=== PATIENT | female | born 1955 | race Caucasian/White ===

== ENCOUNTER 2018-07-22 00:48 | Outpatient (CLI) | payer OTHER, SELFPAY ==
--- NOTE | 2018-07-22 08:30 | DI.MAMMO_ITS ---
SYMPTOM/DIAGNOSIS: SCREENING, Z12.31 MAMMOGRAMS: Mammograms were interpreted according to the usual protocol including computer analysis with CAD system, tomosynthesis and C view imaging. The breast tissue is of moderate radiodensity. There is no evidence of a mass. There are no suspicious calcifications and there has been no significant interval change when compared with prior images. SUMMARY: No evidence of malignancy, category 1. Yearly screening mammography is recommended. Breast density, category B. SA ASSESSMENT OF FINDINGS: Negative. Category 1. Patient will receive a letter notifying them of these results. BI-RADS category B. There are scattered areas of fibroglandular density.
== END 2018-07-22 01:08 ==
PROVIDERS: PCP Family Medicine; Visit Provider Obstetrics & Gynecology Gynecology
DX: Z12.31 Encounter for screening mammogram for malignant neoplasm of breast (principal)
CPT/HCPCS: 77063; 77067

== ENCOUNTER 2018-08-10 09:48 | Outpatient (CLI) | payer OTHER, SELFPAY ==
[2018-08-10 11:11] LABS: Hemoglobin A1C 5.3 % (4.5-6.2)
[2018-08-10 11:19] LABS: ALT 23 U/L (12-78); AST 17 U/L (15-37); Albumin 3.7 g/dL (3.4-5.0); Alkaline Phosphatase 66 U/L (46-116); Anion Gap 9.1 mmol/L (3-11); BUN 9 mg/dL (7-18); Bilirubin, Total 0.4 mg/dL (0.2-1.0); CO2 27.9 mmol/L (21.0-32.0); CREATININE 0.62 mg/dL (0.55-1.02); Calcium 9.4 mg/dL (8.5-10.1); Chloride 104 mmol/L (98-107); Cholesterol 204 mg/dL (50-200); Glucose 89 mg/dL (70-100); HDL Cholesterol 59 mg/dL (40-60); LDL CHOLESTEROL 122 mg/dL (<100); Potassium 4.5 mmol/L (3.5-5.1); Sodium 141 mmol/L (136-145); Triglyceride 94 mg/dL (30-150)
[2018-08-12 06:28] LABS: Vitamin D 25 Total 13.9 ng/ml (30-100)
== END 2018-08-10 10:08 ==
PROVIDERS: PCP Family Medicine; Visit Provider Obstetrics & Gynecology Gynecology
DX: M85.80 Other specified disorders of bone density and structure, unspecified site (principal); Z13.220 Encounter for screening for lipoid disorders; Z13.1 Encounter for screening for diabetes mellitus
CPT/HCPCS: 36415; 80053; 80061; 82306; 83721; 83036

== ENCOUNTER 2019-02-21 09:15 | Emergency (ER) | payer OTHER, BC, SELFPAY ==
[2019-02-21] VITALS (23 sets, daily range): BP systolic 122–147; BP diastolic 65–76; PULSE 53–67; RESP 13–23; TEMP 36.8; O2SAT 94–100
--- NOTE | 2019-02-21 09:33 | NUR.NOTE ---
Nursing Note: Pt has a ring on the ring finger of the left hand. hand is swollen and patient is adamant that the ring is not to be cut, pt states, there is no way that you are going to get it over the knuckle and you are not going to cut it off. Ice applied to fingers. will ice hand, then attempt to lubricate ring to get it off.
--- NOTE | 2019-02-21 09:50 | NUR.NOTE ---
Nursing Note: pt requesting that a lyme panel be added on to her labs. states that she has picked several ticks off of her this Summer and that she started prophylactic doxycycline, but was unable to finish the prescription because she traveled to [place].
[2019-02-21] MEDS: Normal Saline 1,000 ML 1000 ML IV (09:55)
[2019-02-21] MEDS: diphenhydrAMINE 50 MG/ML VIAL 25 MG IVP (10:00)
[2019-02-21] MEDS: methylPREDNISolone SUCC 125 MG VIAL IVP (10:00)
[2019-02-21] MEDS: FAMOTIDINE 20 MG/50 ML BAG 200 MG IVPB (10:00)
--- NOTE | 2019-02-21 10:01 | ED.GENADUL_ITS ---
Discharge Plan Disposition Patient Disposition: HOME Condition: Stable Discharge Details Chief Complaint: Allergic Clinical Impression: Bee sting Primary Care Provider: Jennifer Smith ED Provider: Matilda Salcedo Home Meds and New Rx's Prescriptions: New epinephrine [EpiPen] 0.3 mg/0.3 mL auto-injector 0.3 mg IM ONCE Qty: 2 RF: 3 prednisone 20 mg tablet 60 mg PO DAILY Qty: 12 RF: 0 Discharge Instructions Instructions: Prednisone (By mouth), Epinephrine (Injection), Insect Bite or Sting (ED), General Allergic Reaction (ED) Additional Instructions: Please return immediately to the emergency department if you develop any new or worsening symptoms or if you become otherwise concerned. It is extremely important that you call as soon as possible to make an appointment to be seen in follow-up for this visit by your primary care doctor. Referrals: Jennifer Smith MD, [place] [Primary Care Provider] - Discharge Data Discharge Date/Time-TO BE ENTERED AT DEPARTURE: 02/21/19 12:56 Medical Decision Making Bhumi Agee is a 63 y/o woman without reported history of major medical problems who presented to the emergency department with worsening edema/erythema of the left hand/forearm, and also feeling woozy/lightheaded after taking Benadryl this morning for symptoms related to bee sting sustained yesterday. On exam patient is very well and nontoxic appearing. Airway is intact without signs of impending airway compromise. Lungs are clear, normal breathing. Several sites with erythema, edema where patient reports that she was stung. No apparent retained stingers at sting sites. Exam/history is not consistent with DVT, cellulitis, ACS, PE, sepsis, arrhythmia as cause of lightheadedness. Concern for localized reaction to bee stings. Doubt impending anaphylaxis, however given patient sensation of wooziness/lightheadedness in setting of recent stings plan for observation, IV fluid hydration, IV Benadryl, IV Pepcid, IV Solu- Medrol, EKG, telemetry. Tetanus up-to-date upon record review. Patient reporting possible exposure to tickborne disease and recent generalized arthralgias, requesting tick panel. Will send. Concern for potential worsening of edema in left hand with ring in place, possible complications including tissue necrosis. Patient verbalized understanding of risks, refused cutting of ring at this time. Edema is significant enough to preclude other options for ring removal at this time. Plan for elevation of hand, ice. EKG, screening labs okay. Patient observed on telemetry without further issues on the emergency department. Patient reports that she feels somewhat tired, but otherwise well and states that she is ready for discharge. On exam patient remains very well and nontoxic appearing. There has been improvement in erythema and edema of patient's left hand and arm, with significant improvement of edema of the digits. Ring still not able to be removed over PIP joint, however ring is loose in its current place. Patient continues to refuse cutting of the ring. I had a lengthy discussion with the patient regarding risks of leaving ring in place if finger were to swell further, return to emergency department, precautions, home care, importance of outpatient follow-up with her PCP. Plan for p.o. prednisone, Rx for EpiPen. Patient verbalized understanding of the plan was amenable. All questions were answered. Patient was discharged home with clear plan for outpatient follow-up. Medical Records Medical records reviewed: Yes I reviewed the patient's medical records. Lab Data Lab results reviewed: Yes I reviewed the patient's lab results. Laboratory Tests Range/Units 02/21/19 02/21/19 02/21/19 09:55 09:55 09:55 WBC (4.4-10.8) k/cumm 4.98 RBC (4.00-5.20) m/cumm 4.31 Hgb (12.0-15.5) g/dL 13.8 Hct (36.0-46.0) % 41.0 MCV (80-95) fL 95.1 H MCH (27.0-33.0) pg 32.0 MCHC (32.0-36.0) g/dL 33.7 RDW (11.7-14.6) % 12.6 Plt Count (130-400) x1000/uL 314 MPV (8.0-11.0) fL 9.6 Immature Gran % 0.2 Neutrophils % 70.1 Lymphocytes % 19.1 Monocytes % 8.8 Eosinophils % 1.8 Basophils % 0.0 Absolute Neutrophils (1.2-6.7) k/cumm 3.49 Absolute Lymphocytes (1.2-3.4) k/cumm 0.95 L Absolute Monocytes (0.11-0.7) k/cumm 0.44 Absolute Eosinophils (0.0-0.7) k/cumm 0.09 Absolute Basophils (0.0-0.2) k/cumm 0.00 Sodium (136-145) mmol/L 142 Potassium (3.5-5.1) mmol/L 4.4 Chloride (98-107) mmol/L 106 Carbon Dioxide (21.0-32.0) mmol/L 27.6 Anion Gap (3-11) mmol/L 8.4 BUN (7-18) mg/dL 12 Creatinine (0.55-1.02) mg/dL 0.79 Estimated GFR/1.73 m2 (mL/min/1.73m2) >= 60.00 Glucose (70-100) mg/dL 98 Calcium (8.5-10.1) mg/dL 9.0 Total Bilirubin (0.2-1.0) mg/dL 0.4 AST (15-37) U/L 20 ALT (12-78) U/L 23 Alkaline Phosphatase (46-116) U/L 69 Total Protein (6.4-8.2) g/dL 7.2 Albumin (3.4-5.0) g/dL 3.6 A.phagocytophil DNA PCR (Negative) Negative B. divergens/MO-1 PCR (Negative) Negative Babesia duncani (PCR) (Negative) Negative Babesia microti DNA PCR (Negative) Negative Borrelia (PCR) (Negative) Negative Lyme Disease Antibody Negative E.chaffeensis DNA (PCR) (Negative) Negative E.ewingii/canis DNA PCR (Negative) Negative E. muris-like DNA (PCR) (Negative) Negative ECG Data Attestation: I personally reviewed and interpreted this ECG (s) as follows: Interpretation: EKG shows sinus rhythm at 62, normal axis, no ST elevation, nondiagnostic EKG HPI General Mode of arrival: ambulatory . Date/Time Provider Initiated Documentation: 02/21/19 09:25 . Limitations to Documentation: no limitations . Information obtained by: patient, RN notes reviewed and old records reviewed . HPI Narrative: Bhumi Agee is a 63 y/o woman without reported history of major medical problems presenting to the emergency department with allergic reaction. Patient reports that yesterday she was tending to her honeybees, when she was stung several times. Patient reports that in the past she has had significant localized swelling with bee stings. She was done left hand, left ankle, left thigh, and left abdomen. Patient reports that she did have significant swelling and redness of the left hand yesterday, but this was consistent with similar stings in the past. Patient reports that she woke up this morning, and noticed that redness and swelling of the left hand had progressed to left elbow. Patient reports that she took 2 doses of children's Benadryl, but is unsure of the number of milligrams. Patient reports that after taking Benadryl, she began to feel woozy, somewhat lightheaded. Patient reports that she currently feels somewhat woozy, which in addition to the increase in swelling and redness of her left arm is what prompted her to come to the emergency department. She reports mild pain at the site of the sting but no pain otherwise, no fevers, no shortness of breath, no cough, no vomiting, no diarrhea, no swelling/tightening of the mouth/tongue/throat, no rash other than at sting sites. Has been eating and drinking as usual. No recent illness. Patient reports that she has known allergy to Bactrim, which causes hives. No history of anaphylaxis. Related Data Home Medications Medication Instructions Recorded Confirmed epinephrine [EpiPen] 0.3 mg IM ONCE #2 each 02/21/19 prednisone 60 mg PO DAILY #12 tab 02/21/19 Previous Rx's Medication Instructions Recorded epinephrine [EpiPen] 0.3 mg IM ONCE #2 each 02/21/19 prednisone 60 mg PO DAILY #12 tab 02/21/19 Allergies Allergy/AdvReac Type Severity Reaction Status Date / Time sulfamethoxazole Allergy Hives Unverified 12/21/18 15:16 [From Bactrim] trimethoprim [From Bactrim] Allergy Hives Unverified 12/21/18 15:16 General Stated Complaint: Allergic ROJAS: 3 Review of Systems Review of Systems Constitutional: denies fevers Eyes: denies eye pain ENT: denies facial pain, dental pain, sore throat, swelling of the mouth, tightness of the throat Cardiovascular: denies chest pain, reports mild lightheadedness Respiratory: denies SOB, cough GI: denies abdominal pain, vomiting, diarrhea : denies flank pain MSK: denies back pain, neck pain, reports generalized arthralgias over the past few days (present prior to bee stings) Skin: Reports redness and pain at site of stings, denies other rash Neuro: denies headaches, numbness, weakness [facility] Medical History Plantar fasciitis of left foot Radius distal fracture Stress fracture, left foot, subsequent encounter for fracture with routine healing Vulvar pruritus (Acute) Surgical History back surgery (~2009) section Colonoscopy - MAC (09/04/17) FRACTURE REPAIR Fracture, Open Treatment skin biopsy (04/30/10) STRESS FX 2 METATARSALS OF LEFT FOOT Family History Mother No problems noted. Father Dementia Maternal Grandfather No problems noted. Paternal Grandfather Myocardial infarction Maternal Grandmother No problems noted. Paternal Grandmother No problems noted. Son No problems noted. Daughter No problems noted. 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@ [employer] Pets and animals: Yes Pets and animals: dog(s) Sexually active: No Do you think of yourself as: straight/heterosexual Current gender identity: female What is your relationship status?: How often do you talk on the phone with friends or family?: three or more times per week How often do you get together with friends or relatives?: once per week How often do you attend latter day or catholic services?: decline to answer Do you belong to any clubs or organized social groups?: no Panel score (0-1 are the most socially isolated patients): 2 What type of physical activity do you participate in: walking, bicycling and yoga Duration: 60-90 minutes/day Frequency: 5-6 times per week Annabelle/Roman Catholic: None Special annabelle needs: No Seatbelt use: always Helmet use: Yes Helmet use: always Drive intox or ride w/intox port cdl a driver: No Do you feel safe at home: Yes Do you feel safe in your relationship?: Yes Female Reproductive History Menstrual Menopause type: natural History History 2 Para 2 Hx # Term Pregnancies 2 Multiple births Hx # Pregnancies Ectopic pregnancies AB induced Hx Number of Living Children 2 AB spontaneous Exam Narrative Exam Narrative: Constitutional: well and [id number], pleasant, conversing normally HENT: head atraumatic/normocephalic/normal inspection, mucous membranes moist, no edema of the lips, tongue, or oropharynx noted, no intraoral lesion, no drooling, normal voice Eyes: conjunctiva normal, sclera normal, pupils 3mm b/l Neck: no stridor, normal ROM, trachea midline Chest: normal inspection Resp: normal work of breathing, LCTAB Cardio: normal rate, normal rhythm, 1/6 systolic murmur noted, previously unknown to patient GI: abdomen soft, non-tender, non-distended Back: normal inspection, no rash Skin: warm, dry, normal color, 1-2+ edema with erythema of the left hand to forearm just distal to the left elbow, approximately 10 cm erythema mild edema left abdomen, 3 cm erythema/edema left medial thigh, 2 cm mild erythema left ankle, no rash otherwise. All sites without fluctuance or drainage. Ring present left fourth digit, spins in place but with significant distal edema of the digit. Neuro: alert, not altered, grossly non-focal, normal tone Ext: no edema of the lower legs Psych: normal mood, normal affect, normal behavior Course Vital Signs Temperature 36.8 C 02/21/19 09:17 Pulse 67 02/21/19 09:17 Respiratory Rate 16 02/21/19 09:17 Blood Pressure 133/76 02/21/19 09:17 Pulse Oximetry 100 02/21/19 09:17 Temperature 36.8 C 02/21/19 09:17 Temperature Source Skin 02/21/19 09:17 Pulse 67 02/21/19 09:17 Respiratory Rate 16 02/21/19 09:17 Respiratory Effort Non-Labored 02/21/19 09:35 Blood Pressure 133/76 02/21/19 09:17 Blood Pressure Position Sitting 02/21/19 09:17 Pulse Oximetry 100 02/21/19 09:17 Oxygen Delivery Method Room Air 02/21/19 09:17 Oxygen Flow Rate 0 02/21/19 09:17 Pain Level 0 02/21/19 09:17 Comment 02/21/19 09:17
[2019-02-21 10:07] LABS: Abs Immature Grans 0.01 k/cumm (0.0-0.09); Absolute Eosinophil Count 0.09 k/cumm (0.0-0.7); Absolute Lymphocyte Count 0.95 k/cumm (1.2-3.4); Absolute Monocyte Count 0.44 k/cumm (0.11-0.7); Absolute Neutrophil Count 3.49 k/cumm (1.2-6.7); Eosinophils % 1.8; HGB 13.8 g/dL (12.0-15.5); Immature Grans % 0.2; Lymphocytes % 19.1; Mean Corp. HGB Concentration 33.7 g/dL (32.0-36.0); Mean Corpuscular Volume 95.1 fL (80-95); Mean Platelet Volume 9.6 fL (8.0-11.0); Monocytes % 8.8; Neutrophils % 70.1; Platelet Count 314 x1000/uL (130-400); RBC 4.31 m/cumm (4.00-5.20); RBC Distribution Width 12.6 % (11.7-14.6); White Blood Cell Count 4.98 k/cumm (4.4-10.8)
[2019-02-21 10:22] LABS: ALT 23 U/L (12-78); AST 20 U/L (15-37); Albumin 3.6 g/dL (3.4-5.0); Alkaline Phosphatase 69 U/L (46-116); Anion Gap 8.4 mmol/L (3-11); BUN 12 mg/dL (7-18); Bilirubin, Total 0.4 mg/dL (0.2-1.0); CO2 27.6 mmol/L (21.0-32.0); CREATININE 0.79 mg/dL (0.55-1.02); Chloride 106 mmol/L (98-107); Glucose 98 mg/dL (70-100); Potassium 4.4 mmol/L (3.5-5.1); Sodium 142 mmol/L (136-145); Total Protein 7.2 g/dL (6.4-8.2)
[2019-02-22 11:34] LABS: Lyme Ab w Rflx to Lyme Confirm Negative
[2019-02-22 22:40] LABS: Anaplasma phagocytophilum Negative (Negative); B. miyamotoi PCR Negative (Negative); Babesia divergens/MO-1 Negative (Negative); Babesia duncani Negative (Negative); Babesia microti Negative (Negative); Ehrlichia chaffeensis Negative (Negative); Ehrlichia ewingii/canis Negative (Negative); Ehrlichia muris eauclairensis Negative (Negative)
== END 2019-02-21 12:56 | disposition home or self-care (01) ==
PROVIDERS: Emergency Provider Student in an Organized Health Care Education/Training Program; PCP Family Medicine
DX: T63.441A Toxic effect of venom of bees, accidental (unintentional), initial encounter (principal); R60.0 Localized edema; L53.9 Erythematous condition, unspecified; R42 Dizziness and giddiness; R52 Pain, unspecified; W57.XXXA Bitten or stung by nonvenomous insect and other nonvenomous arthropods, initial encounter
CPT/HCPCS: 36415; 80053; 87798; 93005; 96361; 96374; 96375; 99285; 85025; 86618; 93010; J1200; J2930

== ENCOUNTER 2019-11-11 09:26 | Outpatient (REF) | payer BC, SELFPAY ==
[2019-11-11 09:40] LABS: Glucose 87 mg/dL (74-106)
[2019-11-11 10:11] LABS: Calculated LDL 128 mg/dL (<100); Cholesterol 210 mg/dL (<200); HDL Cholesterol 63 mg/dL (40-60); Triglyceride 99 mg/dL (<150); Vitamin B12 169 pg/mL (193-986)
[2019-11-14 06:30] LABS: Vitamin D 25 Total 13.3 ng/ml (30-100)
== END 2019-11-11 09:46 ==
LOC: LBN 09:26
PROVIDERS: Advanced Practice Midwife; PCP Family Medicine; Visit Provider Family Medicine
DX: Z00.00 Encounter for general adult medical examination without abnormal findings (principal); E55.9 Vitamin D deficiency, unspecified; R53.83 Other fatigue
CPT/HCPCS: 80061; 82306; 82947; 82607; 84443

== ENCOUNTER 2020-03-13 03:31 | Outpatient (CLI) | payer BC, SELFPAY ==
--- NOTE | 2020-03-13 08:00 | DI.MAMMO_ITS ---
EXAM: MAMMO SCREENING CLINICAL HISTORY: screening,z12.39 TECHNIQUE: Mammograms were interpreted according to the usual protocol including computer analysis w [employer] CAD system, tomosynthesis and C-view imaging. COMPARISON: 2011 through 2018 FINDINGS: The breasts are composed of scattered fibroglandular densities, Breast Density category B. No suspicious masses or suspicious microcalcifications are seen. No skin thickening or abnormal axillary lymph nodes are seen. There has been no significant change from prior exams. IMPRESSION: BI-RADS Category 1, Negative mammogram Yearly screening mammography is recommended. Breast Density - Category B, scattered fibroglandular densities. A negative radiographic report should not delay biopsy if a dominant or clinically suspicious mass is present. Up to ten percent of cancers are not identified on mammography. A negative report may reinforce clinical impression. Adenosis and dense breasts may obscure an underlying neoplasm. False positive reports average 6 to 10%. Patient will receive a letter notifying them of these results.
== END 2020-03-13 03:51 ==
PROVIDERS: PCP Family Medicine; Visit Provider Family Medicine
DX: Z12.31 Encounter for screening mammogram for malignant neoplasm of breast (principal); R92.2 Inconclusive mammogram
CPT/HCPCS: 77063; 77067

== ENCOUNTER 2020-05-11 09:13 | Outpatient (CLI) | payer BC, SELFPAY ==
[2020-05-11 10:18] LABS: Calculated LDL 132 mg/dL (<100); Cholesterol 219 mg/dL (<200); HDL Cholesterol 70 mg/dL (40-60); Triglyceride 86 mg/dL (<150)
[2020-05-11 10:27] LABS: Vitamin B12 > 2000 pg/mL (193-986)
[2020-05-11 10:37] LABS: Glucose 88 mg/dL (74-106)
[2020-05-14 06:13] LABS: Vitamin D 25 Total 64.7 ng/ml (30-100)
== END 2020-05-11 09:33 ==
PROVIDERS: Advanced Practice Midwife; PCP Family Medicine; Visit Provider Family Medicine
DX: E55.9 Vitamin D deficiency, unspecified (principal); E53.8 Deficiency of other specified B group vitamins
CPT/HCPCS: 36415; 80061; 82306; 82947; 82607

== ENCOUNTER 2020-12-06 10:46 | Outpatient (CLI) | payer BC, SELFPAY ==
[2020-12-06 15:07] LABS: Vitamin B12 375 pg/mL (193-986)
[2020-12-07 10:48] LABS: Lyme Ab w Rflx to Lyme Confirm Negative (Negative)
[2020-12-09 00:34] LABS: Anaplasma phagocytophilum Negative (Negative); B. miyamotoi PCR Negative (Negative); Babesia divergens/MO-1 Negative (Negative); Babesia duncani Negative (Negative); Babesia microti Negative (Negative); Ehrlichia chaffeensis Negative (Negative); Ehrlichia ewingii/canis Negative (Negative); Ehrlichia muris eauclairensis Negative (Negative)
== END 2020-12-06 10:47 | disposition home or self-care (01) ==
LOC: LBO 10:50
PROVIDERS: PCP Family Medicine; Visit Provider Family Medicine
DX: E53.8 Deficiency of other specified B group vitamins (principal); R74.8 Abnormal levels of other serum enzymes; W57.XXXA Bitten or stung by nonvenomous insect and other nonvenomous arthropods, initial encounter; T14.8XXA Other injury of unspecified body region, initial encounter
CPT/HCPCS: 36415; 87798; 82607; 86618

== ENCOUNTER 2020-12-12 09:08 | Outpatient (CLI) | payer BC, SELFPAY ==
--- NOTE | 2020-12-12 08:30 | DI.RAD_ITS ---
Exam(s) XR FOOT RT COMPLETE EXAM: XR FOOT RT COMPLETE CLINICAL HISTORY: r foot pain, M79.671. TECHNIQUE: 2D digital imaging was performed. COMPARISON: No exams were available for comparison FINDINGS: BONES: No acute fracture is present. No bony destructive lesion is seen. There is a small spur at th e plantar surface of the calcaneus. There is a small enthesophyte at the Achilles insertion site. JOINTS: No dislocation present. There are degenerative changes in the foot particularly at the 1st M TP joint. There is a small spur at the dorsal aspect of the head of the 1st metatarsal. SOFT TISSUE: Normal. IMPRESSION: Degenerative changes of the right foot. DATA REPOSITORY: RADIATION DOSE DELIVERED:
== END 2020-12-12 09:28 ==
PROVIDERS: PCP Family Medicine; Visit Provider Family Medicine
DX: M79.671 Pain in right foot (principal); M77.31 Calcaneal spur, right foot; M19.071 Primary osteoarthritis, right ankle and foot
CPT/HCPCS: 73630

== ENCOUNTER 2021-05-13 09:14 | Outpatient (REF) | payer BC, SELFPAY ==
[2021-05-15 15:45] LABS: COVID-19 RT-PCR UVMMC Result Negative (Negative)
== END 2021-05-13 09:15 | disposition home or self-care (01) ==
LOC: LBO 09:14
PROVIDERS: PCP Family Medicine; Visit Provider Nurse Practitioner Family
DX: Z20.822 Contact with and (suspected) exposure to COVID-19 (principal)
CPT/HCPCS: U0003

== ENCOUNTER 2021-06-14 01:23 | Outpatient (CLI) | payer BC, SELFPAY ==
[2021-06-14 09:33] LABS: Vitamin B12 > 2000 pg/mL (193-986)
[2021-06-17 05:41] LABS: Vitamin D 25 Total 48.4 ng/mL (30-100)
== END 2021-06-14 01:24 | disposition home or self-care (01) ==
LOC: LBO 01:23
PROVIDERS: PCP Family Medicine; Visit Provider Family Medicine
DX: E53.8 Deficiency of other specified B group vitamins (principal); E55.9 Vitamin D deficiency, unspecified; Z00.00 Encounter for general adult medical examination without abnormal findings
CPT/HCPCS: 36415; 82306; 82607

== ENCOUNTER 2021-10-30 03:37 | Outpatient (RCR) | payer BC, SELFPAY | END 2021-11-02 23:59 | disposition home or self-care (01) | LOC: INF 03:37 | PROVIDERS: PCP Family Medicine; Visit Provider Nurse Practitioner Family | DX: Z20.3 Contact with and (suspected) exposure to rabies (principal) | CPT/HCPCS: 90471; 90675 ==

== ENCOUNTER 2022-03-20 03:59 | Outpatient (CLI) | payer MEDICARE, SELFPAY ==
[2022-03-20 12:57] LABS: Vitamin D 25 Total 22.9 ng/mL (30-100)
[2022-03-20 12:59] LABS: Vitamin B12 352 pg/mL (193-986)
== END 2022-03-20 04:00 | disposition home or self-care (01) ==
LOC: LOS 03:59
PROVIDERS: PCP Family Medicine; Visit Provider Family Medicine
DX: E53.8 Deficiency of other specified B group vitamins (principal); E55.9 Vitamin D deficiency, unspecified
CPT/HCPCS: 36415; 82306; 82607

== ENCOUNTER 2022-06-26 13:43 | Outpatient (REF) | payer MEDICARE, OTHER, SELFPAY ==
--- NOTE | 2022-06-26 13:35 | PAPFT_PTH ---
PATIENT: Bhumi Agee LOC: [facility]#:[id number] AGE/SX: 67/F ROOM: RE06/26/[address]: Viktoria Martinez : 1955 BED: DIS: 06/26/2022 SPEC #: [id number] RECD: 06/26/22 17:43 STATUS: MICK REQ #: [id number] DAMION: 06/26/22 13:[address]: Viktoria Martinez DEPT: [facility] Cytology RECD BY: Josi Martinez ENTERED: 06/26/22 17:44 SP TYPE: PAPFT OTHR DR: Jennifer Smith MD, [place] Tissues: 1 - CX/ENDOCX FOR PAP SMEARS Procedures: PAP THIN PREP/UVM Screening HPV DNA PROBE Comments: [id number]
== END 2022-06-26 13:44 | disposition home or self-care (01) ==
LOC: LBN 13:43
PROVIDERS: PCP Family Medicine; Visit Provider Obstetrics & Gynecology Gynecology
DX: Z12.4 Encounter for screening for malignant neoplasm of cervix (principal); Z11.51 Encounter for screening for human papillomavirus (HPV); Z01.419 Encounter for gynecological examination (general) (routine) without abnormal findings
CPT/HCPCS: 88142; 87624

== ENCOUNTER 2022-08-08 11:38 | Outpatient (CLI) | payer MEDICARE, SELFPAY ==
--- NOTE | 2022-08-08 11:30 | RT.EKG_ITS ---
APPROVED REPORT Exam: Resting ECG Reason for Exam: anxiety Patient Location: O HR:44 bpm ECG Measurements Heart Rate 44 AXIS OH 168 P 3 QRSd 89 QRS 12 QT 451 T 44 QTc 386 Conclusion Sinus bradycardia...rate< 50 Normal Electrocardiogram
== END 2022-08-08 11:39 | disposition home or self-care (01) ==
LOC: DI.CM 11:39
PROVIDERS: PCP Family Medicine; Visit Provider Family Medicine
DX: F41.9 Anxiety disorder, unspecified (principal); R00.1 Bradycardia, unspecified
CPT/HCPCS: 93010

== ENCOUNTER 2022-08-08 12:20 | Emergency (ER) | payer MEDICARE, SELFPAY ==
[2022-08-08] VITALS (36 sets, daily range): BP systolic 115–175; BP diastolic 64–100; PULSE 52–85; RESP 11–27; TEMP 36.5; O2SAT 85–100
--- NOTE | 2022-08-08 12:15 | RT.EKG_ITS ---
APPROVED REPORT Exam: Resting ECG Reason for Exam: Chest pain Patient Location: E HR:82 bpm ECG Measurements Heart Rate 82 AXIS ME 167 P 5 QRSd 89 QRS 12 QT 391 T 36 QTc 458 Conclusion Sinus rhythm...normal P axis, V-rate 60- 99
--- NOTE | 2022-08-08 12:45 | DI.RAD_ITS ---
Exam(s) XR CHEST 2V PA LATERAL EXAM: XR CHEST 2V PA LATERAL CLINICAL HISTORY: chest pain. TECHNIQUE: 2D digital imaging was performed. COMPARISON: No exams were available for comparison FINDINGS: 2 views: Heart size is normal. The mediastinum is not widened. Small nodular infiltrate seen laterally in the right lung. This measures approximately 8 x 6 millime ters. No other focal pulmonary findings and no pleural effusions. IMPRESSION: Small 8 x 6 millimeter noncalcified nodular density is noted laterally in the right lung. No other p ulmonary findings and no pleural effusions. DATA REPOSITORY: RADIATION DOSE DELIVERED:
[2022-08-08 13:01] LABS: Abs Immature Grans 0.01 10^3/uL (0.0-0.06); Absolute Basophil Count 0.03 10^3/uL (0.0-0.2); Absolute Eosinophil Count 0.03 10^3/uL (0.0-0.7); Absolute Monocyte Count 0.26 10^3/uL (0.1-0.8); Basophils % 0.5; Eosinophils % 0.5; HCT 44.4 % (36.0-46.0); HGB 14.8 g/dL (11.2-15.7); Immature Grans % 0.2; Lymphocytes % 28.4; MCH 31.6 pg (27.0-33.0); MCHC 33.3 % (32.0-36.0); MCV 95 fL (80-95); MPV 9.2 fL (8.0-11.0); Monocytes % 4.6; Neutrophils % 65.8; Platelet Count 362 10^3/uL (130-400); RBC 4.69 10^6/uL (3.93-5.22); RDW 11.6 % (11.7-14.6); RDW-SD 39.6 fL; WBC 5.63 10^3/uL (4.4-10.8)
[2022-08-08 13:15] LABS: ALT 18 U/L (14-59); AST 11 U/L (15-37); Albumin 4.7 g/dL (3.4-5.0); Alkaline Phosphatase 82 U/L (46-116); Anion Gap 8.6 mmol/L (3-11); BUN 9 mg/dL (7-18); Bilirubin, Total 0.4 mg/dL (0.2-1.0); CO2 29.4 mmol/L (21.0-32.0); CREATININE 0.7 mg/dL (0.55-1.02); Calcium 9.6 mg/dL (8.5-10.1); Chloride 105 mmol/L (98-107); Estimated GFR 94.73 (mL/min/1.73m2); Glucose 97 mg/dL (74-106); Potassium 3.5 mmol/L (3.5-5.1); Sodium 143 mmol/L (136-145); Total Protein 8.1 g/dL (6.4-8.2)
[2022-08-08 13:24] LABS: Magnesium 2.4 mg/dL (1.8-2.4); NT-proBNP 31 pg/mL (<300); Troponin I < 50 ng/L (<or=60)
[2022-08-08 13:31] LABS: PTT Activated 28.6 sec (21.0-27.5)
--- NOTE | 2022-08-08 13:35 | ED.GENADUL_ITS ---
Discharge Plan Disposition Patient Disposition: Home Condition: Stable Discharge Details Clinical Impression: Chest pain, Pulmonary nodule Primary Care Provider: Jennifer Smith ED Provider: Clarence Rae Home Meds and New Rx's Prescriptions: No Action epinephrine [EpiPen] 0.3 mg/0.3 mL auto-injector 0.3 mg IM ONCE Qty: 2 3RF Rx Instructions: as a single dose ergocalciferol (vitamin D2) 1,250 mcg (50,000 unit) capsule 50,000 unit PO QWEEK Qty: 13 4RF clobetasol [Temovate] 0.05 % ointment 1 applic topical BID Qty: 60 1RF Medical Decision Making 67-year-old female who denies significant past medical history reports paresthesias in her left hand and shoulder pain for at least 1 year which seems to be associated with positioning while sleeping she states that she has had mild chest pressure substernal for at least 3 months intermittently. About 1 mo nth ago she began supplementing different plant proteins to increase her overall protein intake. Since that time she reports loose stools and increased belching. In the setting of left hand paresthesias with shoulder pain, intermittent substernal chest pressure, belching, etc. concern for cardiac etiology. Plan to obtain cardiac work-up including D-dimer and will provide full dose aspirin. Patient appears well, nontoxic and is hemodynamically stable. Initial laboratory values are unremarkable for any obvious emergent process. D- dimer within normal range of 375, will not pursue CTA of the chest. Initial troponin less than 50. Flu, RSV, COVID-negative Chest x-ray reveals small 8 x 6 mm density in the right lung, this will require outpatient PCP follow-up Upon reevaluation patient appears well, nontoxic, remains asymptomatic. Awaiting delta troponin. Medical Records Medical records reviewed: Yes I reviewed the patient's medical records. Imaging Data Radiologic Study: Attestation: I personally reviewed and interpreted this imaging study as follows: Imaging: CT Scan Radiologist's impression: Exam(s) XR CHEST 2V PA LATERAL EXAM: XR CHEST 2V PA LATERAL CLINICAL HISTORY: chest pain. TECHNIQUE: 2D digital imaging was performed. COMPARISON: No exams were available for comparison FINDINGS: 2 views: Heart size is normal. The mediastinum is not widened. Small nodular infiltrate seen laterally in the right lung. This measures approximately 8 x 6 millimeters. No other focal pulmonary findings and no pleural effusions. IMPRESSION: Small 8 x 6 millimeter noncalcified nodular density is noted laterally in the right lung. No other pulmonary findings and no pleural effusions. Lab Data Lab results reviewed: Yes I reviewed the patient's lab results. Labs: Laboratory Tests Range/Units 08/08/22 08/08/22 08/08/22 12:50 12:55 12:55 WBC (4.4-10.8) 10^3/uL 5.63 RBC (3.93-5.22) 10^6/uL 4.69 Hgb (11.2-15.7) g/dL 14.8 Hct (36.0-46.0) % 44.4 MCV (80-95) fL 95 MCH (27.0-33.0) pg 31.6 MCHC (32.0-36.0) % 33.3 RDW (11.7-14.6) % 11.6 L Plt Count (130-400) 10^3/uL 362 MPV (8.0-11.0) fL 9.2 Immature Gran % 0.2 Neutrophils % 65.8 Lymphocytes % 28.4 Monocytes % 4.6 Eosinophils % 0.5 Basophils % 0.5 Nucleated RBC % (0.0-0.3) % 0.0 Absolute Neutrophils (1.2-6.7) 10^3/uL 3.70 Absolute Lymphocytes (1.2-3.4) 10^3/uL 1.60 Absolute Monocytes (0.1-0.8) 10^3/uL 0.26 Absolute Eosinophils (0.0-0.7) 10^3/uL 0.03 Absolute Basophils (0.0-0.2) 10^3/uL 0.03 PT (9.3-11.0) sec 10.0 INR (0.9-1.1) 1.0 APTT (21.0-27.5) sec 28.6 H D-Dimer (<500) ng/mlFEU 275 Sodium (136-145) mmol/L Potassium (3.5-5.1) mmol/L Chloride (98-107) mmol/L Carbon Dioxide (21.0-32.0) mmol/L Anion Gap (3-11) mmol/L BUN (7-18) mg/dL Creatinine (0.55-1.02) mg/dL Est GFR (CKD-EPI 2020) (mL/min/1.73m2) Glucose (74-106) mg/dL Calcium (8.5-10.1) mg/dL Magnesium (1.8-2.4) mg/dL 2.4 Total Bilirubin (0.2-1.0) mg/dL AST (15-37) U/L ALT (14-59) U/L Alkaline Phosphatase (46-116) U/L Troponin I (<or=60) ng/L < 50 NT-Pro-B Natriuret Pep (<300) pg/mL 31 Total Protein (6.4-8.2) g/dL Albumin (3.4-5.0) g/dL COVID-19 Source SARS-CoV-2 (PCR) (Negative) Influenza Type A (PCR) (Negative) Influenza Type B (PCR) (Negative) RSV (PCR) (Negative) Range/Units 08/08/22 08/08/22 12:55 12:55 WBC (4.4-10.8) 10^3/uL RBC (3.93-5.22) 10^6/uL Hgb (11.2-15.7) g/dL Hct (36.0-46.0) % MCV (80-95) fL MCH (27.0-33.0) pg MCHC (32.0-36.0) % RDW (11.7-14.6) % Plt Count (130-400) 10^3/uL MPV (8.0-11.0) fL Immature Gran % Neutrophils % Lymphocytes % Monocytes % Eosinophils % Basophils % Nucleated RBC % (0.0-0.3) % Absolute Neutrophils (1.2-6.7) 10^3/uL Absolute Lymphocytes (1.2-3.4) 10^3/uL Absolute Monocytes (0.1-0.8) 10^3/uL Absolute Eosinophils (0.0-0.7) 10^3/uL Absolute Basophils (0.0-0.2) 10^3/uL PT (9.3-11.0) sec INR (0.9-1.1) APTT (21.0-27.5) sec D-Dimer (<500) ng/mlFEU Sodium (136-145) mmol/L 143 Potassium (3.5-5.1) mmol/L 3.5 Chloride (98-107) mmol/L 105 Carbon Dioxide (21.0-32.0) mmol/L 29.4 Anion Gap (3-11) mmol/L 8.6 BUN (7-18) mg/dL 9 Creatinine (0.55-1.02) mg/dL 0.7 Est GFR (CKD-EPI 2020) (mL/min/1.73m2) 94.73 Glucose (74-106) mg/dL 97 Calcium (8.5-10.1) mg/dL 9.6 Magnesium (1.8-2.4) mg/dL Total Bilirubin (0.2-1.0) mg/dL 0.4 AST (15-37) U/L 11 L ALT (14-59) U/L 18 Alkaline Phosphatase (46-116) U/L 82 Troponin I (<or=60) ng/L NT-Pro-B Natriuret Pep (<300) pg/mL Total Protein (6.4-8.2) g/dL 8.1 Albumin (3.4-5.0) g/dL 4.7 COVID-19 Source Nasopharynx SARS-CoV-2 (PCR) (Negative) Negative Influenza Type A (PCR) (Negative) Negative Influenza Type B (PCR) (Negative) Negative RSV (PCR) (Negative) Negative ECG Data Attestation: I personally reviewed and interpreted this ECG (s) as follows: Interpretation: Sinus rhythm, ventricular of 82, no STEMI HPI General Mode of arrival: ambulatory . Date/Time Provider Initiated Documentation: 08/08/22 13:35 . Limitations to Documentation: no limitations . Information obtained by: patient . HPI Narrative: This is a 67-year-old female who denies significant past medical history, reports she has had intermittent tingling in her left hand and shoulder discomfort primarily with position during sleeping for approximately 1 year, reports 3-month history of intermittent substernal pressure, does not radiate anywhere, now with 3-week history of increased belching presents to the ER for further evaluation. She denies recent illness or trauma. She denies headache, visual changes, neck pain, shortness of breath, back pain, abdominal pain, vomiting, change in bladder function. Patient reports that she has been trying to increase her overall plant-based protein which has caused her to have slig htly loose stools. Also reports occasional nausea with oral intake, this been going on for years. Denies pain or swelling in her legs. Related Data Home Medications Medication Instructions Recorded Confirmed ergocalciferol (vitamin D2) 1,250 50,000 unit PO QWEEK #13 caps 03/20/22 08/08/22 mcg (50,000 unit) capsule epinephrine 0.3 mg/0.3 mL 0.3 mg (0.3 mL) IM ONCE #2 ea 06/05/22 08/08/22 injection, auto-injector (EpiPen) clobetasol 0.05 % topical ointment 1 applic topical BID #60 grams 07/03/22 08/08/22 (Temovate) Previous Rx's Medication Instructions Recorded ergocalciferol (vitamin D2) 1,250 50,000 unit PO QWEEK #13 caps 03/20/22 mcg (50,000 unit) capsule epinephrine 0.3 mg/0.3 mL 0.3 mg (0.3 mL) IM ONCE #2 ea 06/05/22 injection, auto-injector (EpiPen) clobetasol 0.05 % topical ointment 1 applic topical BID #60 grams 07/03/22 (Temovate) Allergies Allergy/AdvReac Type Severity Reaction Status Date / Time sulfamethoxazole Allergy Hives Unverified 08/08/22 12:29 [From Bactrim] trimethoprim [From Bactrim] Allergy Hives Unverified 08/08/22 12:29 General Stated Complaint: Chest Pain ROJAS: 2 Review of Systems Constitutional Constitutional: Denies fever(s), Denies headache(s) and Denies weakness Eyes Eyes: Denies change in vision ENT Ears, Nose, Mouth, and Throat: Denies headache(s) and Denies neck pain Cardiovascular Cardiovascular: Reports chest pain (Described as pressure) and Denies dyspnea Respiratory Respiratory: Denies cough and Denies dyspnea Gastrointestinal Gastrointestinal: Denies abdominal pain, Denies constipation, Denies diarrhea, Reports loose stools, Reports nausea and Denies vomiting Genitourinary Genitourinary: Denies dysuria Musculoskeletal Musculoskeletal: Denies neck pain Integumentary/Breasts Skin/Breast: Denies rash Neurologic Neurologic: Denies headache(s) and Denies weakness PFSH All Active Problems (Updated 08/08/22 @ 14:12 by SAMANTA Barkley) Vitamin D deficiency (Chronic 06/12/15) Annual physical exam (Acute) Spasm of muscle of lower back (Acute) Vegan diet (Acute) Fatigue (Acute) B12 deficiency (Acute) Encounter for screening for other viral diseases (Acute) Breast pain (Acute) Skin lesions (Acute) Elevated vitamin B12 level (Acute) Tick bite (Acute) Foot pain, right (Acute) Need for post exposure prophylaxis for rabies (Acute) Facial lesion (Acute) Skin lesion of back (Acute) Chest pain (Acute) Pulmonary nodule (Acute) Medical History Distal radius fracture (03/01/14) right Gallbladder disorder 2001 U/S: PHRYGIAN CAP, NO STONES; 08/10 U/S: NEG Menopausal state (02/18/12) Peroneal tendonitis of left lower leg (08/08/15) Plantar fasciitis of left foot Plantar fasciitis of left foot (08/08/15) Radius distal fracture Stress fracture, left foot, subsequent encounter for fracture with routine healing Stress fracture, left foot, subsequent encounter for fracture with routine healing (05/16/15) Vulvar pruritus occassional. No visible lesions. Neg vag path screen. Uses Clobetasol PRN. Surgical History back surgery (~2009) section 1987 and 1997 Colonoscopy - MAC (09/04/17) 2006 FRACTURE REPAIR 03/03/14 REPAIR OF FX WITH HARDWARE TO R DISTAL RADIUS Fracture, Open Treatment 08/09/14 RIGHT DISTAL RADIUS; HARDWARE REMOVED DUE TO COMPLICATIONS History of section History of spinal surgery skin biopsy (04/30/10) punch bx of skin of chest STRESS FX 2 METATARSALS OF LEFT FOOT + DX VIA MRI @ [facility] 05/16/15; BOOTS X 6 WEEKS; DR. IRAHETA Family History Mother , 88 No problems noted. Father , 70 Dementia Maternal Grandfather , MVA at age 40. No problems noted. Paternal Grandfather , 60+ Myocardial infarction Maternal Grandmother , MVA at age 40. No problems noted. Paternal Grandmother , 80 No problems noted. Son No problems noted. Daughter No problems noted. 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@ [employer] Pets and animals: Yes Pets and animals: dog(s) Sexually active: No Do you think of yourself as: straight/heterosexual Current gender identity: female What is your relationship status?: How often do you talk on the phone with friends or family?: three or more times per week Do you belong to any clubs or organized social groups?: no Panel score (0-1 are the most socially isolated patients): 2 What type of physical activity do you participate in: walking and bicycling Duration: 45-60 minutes/day Frequency: 3-4 times per week Annabelle/Roman Catholic: None Special annabelle needs: No Seatbelt use: always Helmet use: Yes Helmet use: always Drive intox or ride w/intox after school driver: No Do you feel safe at home: Yes Do you feel safe in your relationship?: Yes Victim of physical abuse: No Victim of emotional abuse: No Victim of sexual abuse: No Would you like helpful sources: No Female Reproductive History Menstrual Menopause type: natural History History 2 Para 2 Hx # Term Pregnancies 2 Multiple births Hx # Pregnancies Ectopic pregnancies AB induced Hx Number of Living Children 2 AB spontaneous Exam Const General: cooperative, healthy appearing, comfortable and no acute distress Orientation: alert and awake [facility] Head: normal to inspection, normocephalic and atraumatic Eyes Conjunctivae: conjunctivae normal Neck Neck: normal visual inspection, full ROM, no meningeal signs, trachea midline and supple Resp Effort & Inspection: normal respiratory effort and able to speak in complete sentences Auscultation: clear to auscultation bilaterally Cardio Rate: regular rate Rhythm: regular rhythm GI Palpation: soft, not firm, no guarding and nontender Back/Spine/Pelvis Back: no CVA tenderness and No back tenderness Skin General skin exam: no rashes or lesions noted Neuro General: patient alert, patient awake, moves all extremities and no focal motor deficits Cognition: normal cognition Speech: speech normal Gait: normal gait Sensory Exam: no sensory deficits noted Extrem General: normal to inspection, full ROM, no pedal edema and no calf tenderness Psych Appearance: grossly normal Mental Status: mental status grossly normal Course Vital Signs Vital signs: Vital Signs Temperature 36.5 C 08/08/22 12:27 Pulse 85 08/08/22 12:27 Respiratory Rate 17 08/08/22 12:27 Blood Pressure 159/100 H 08/08/22 12:27 Pulse Oximetry 100 08/08/22 12:27 Temperature 36.5 C 08/08/22 12:27 Temperature Source Temporal Artery Scan 08/08/22 12:27 Pulse 85 08/08/22 12:27 Respiratory Rate 21 08/08/22 12:54 Respiratory Effort 08/08/22 12:56 Respiratory Depth Normal 08/08/22 12:54 Respiratory Pattern Normal 08/08/22 12:54 Blood Pressure 159/100 H 08/08/22 12:27 Blood Pressure Position Sitting 08/08/22 12:27 Pulse Oximetry 100 08/08/22 12:27 Pain Level 1 08/08/22 12:27 Lab/Test Results Lab/Test Results: Laboratory Tests Range/Units 08/08/22 08/08/22 08/08/22 12:50 12:55 12:55 WBC (4.4-10.8) 10^3/uL 5.63 RBC (3.93-5.22) 10^6/uL 4.69 Hgb (11.2-15.7) g/dL 14.8 Hct (36.0-46.0) % 44.4 MCV (80-95) fL 95 MCH (27.0-33.0) pg 31.6 MCHC (32.0-36.0) % 33.3 RDW (11.7-14.6) % 11.6 L Plt Count (130-400) 10^3/uL 362 MPV (8.0-11.0) fL 9.2 Immature Gran % 0.2 Neutrophils % 65.8 Lymphocytes % 28.4 Monocytes % 4.6 Eosinophils % 0.5 Basophils % 0.5 Nucleated RBC % (0.0-0.3) % 0.0 Absolute Neutrophils (1.2-6.7) 10^3/uL 3.70 Absolute Lymphocytes (1.2-3.4) 10^3/uL 1.60 Absolute Monocytes (0.1-0.8) 10^3/uL 0.26 Absolute Eosinophils (0.0-0.7) 10^3/uL 0.03 Absolute Basophils (0.0-0.2) 10^3/uL 0.03 Sodium (136-145) mmol/L 143 Potassium (3.5-5.1) mmol/L 3.5 Chloride (98-107) mmol/L 105 Carbon Dioxide (21.0-32.0) mmol/L 29.4 Anion Gap (3-11) mmol/L 8.6 BUN (7-18) mg/dL 9 Creatinine (0.55-1.02) mg/dL 0.7 Est GFR (CKD-EPI 2020) (mL/min/1.73m2) 94.73 Glucose (74-106) mg/dL 97 Calcium (8.5-10.1) mg/dL 9.6 Magnesium (1.8-2.4) mg/dL 2.4 Total Bilirubin (0.2-1.0) mg/dL 0.4 AST (15-37) U/L 11 L ALT (14-59) U/L 18 Alkaline Phosphatase (46-116) U/L 82 Troponin I (<or=60) ng/L < 50 NT-Pro-B Natriuret Pep (<300) pg/mL 31 Total Protein (6.4-8.2) g/dL 8.1 Albumin (3.4-5.0) g/dL 4.7
[2022-08-08 13:40] LABS: D-Dimer 275 ng/mlFEU (<500)
[2022-08-08] MEDS: Aspirin 81 MG CHEW 324 MG CH (13:48)
[2022-08-08 13:50] LABS: COVID-19 PCR Negative (Negative); Influenza A PCR Negative (Negative); Influenza B PCR Negative (Negative); RSV PCR Negative (Negative)
[2022-08-08 13:51] LABS: Source Nasopharynx
[2022-08-08 16:02] LABS: Troponin I < 50 ng/L (<or=60)
== END 2022-08-08 17:14 | disposition home or self-care (01) ==
PROVIDERS: Physician Assistant; Emergency Provider Physician Assistant; PCP Family Medicine
DX: R07.2 Precordial pain (principal); R91.1 Solitary pulmonary nodule; R91.8 Other nonspecific abnormal finding of lung field; Z20.822 Contact with and (suspected) exposure to COVID-19; R07.89 Other chest pain
CPT/HCPCS: 36415; 80053; 87637; 93005; 99284; 99285; 71046; 83735; 83880; 84484; 85025; 85379; 85610; 85730; 93010

== ENCOUNTER 2022-09-04 01:52 | Outpatient (CLI) | payer MEDICARE, SELFPAY ==
--- NOTE | 2022-09-04 08:47 | DI.CT_ITS ---
Exam(s) CT CHEST W EXAM: CT CHEST W CLINICAL HISTORY: abnl xray,lung nodule, r91.1 TECHNIQUE: Imaging Protocol: Axial computed tomography images with coronal and sagittal reformatted images were created and reviewed CONTRAST MATERIAL: Intravenous: Omnipaque 350Contrast volume:70 mL. COMPARISON: CR XR CHEST 2V PA LATERAL from 08/08/2022 FINDINGS: Tracheobronchial tree: Patent where visualized. Pulmonary parenchyma: No consolidation or dominant measurable mass. There is a 0.6 cm nodule in the r ight lung associated with the minor fissure. Mediastinum and Mirian: No dominant adenopathy or fluid collection. The esophagus is unremarkable. Thyroid gland: Unremarkable. Pleura: No effusion or pneumothorax. Heart: The heart is not dilated. No coronary artery calcifications are seen. No pericardial effusion. Aorta: Thoracic aorta non-dilated. Atherosclerosis. Pulmonary arteries: Pulmonary arteries are not adequately opacified for evaluation of pulmonary embol i. Upper abdomen: Unremarkable. Lymph nodes: Within normal limits. Bones: Within normal limits for the patient's age. Soft tissues: Unremarkable. IMPRESSION: 0.6 cm nodule in the right lung. This likely corresponds to the chest x-ray abnormality. In low ris k patients, follow-up examination in 6-12 months is recommended. For high risk patients (history of smoking or other risk factors), initial follow-up examination in 6-12 months and again at 18-24 month s is recommended. (Mee et al, 2017). RADIATION DOSE DELIVERED: 561.24mGy.cm Total DLP DATA REPOSITORY: All CT scans at this facility are submitted to the National Radiology Data Registry (NRDR) Dose Index Registry (DIR) with the [employer] (ACR). RADIATION OPTIMIZATION: All CT scans at this facility use at least one of these dose optimization te chniques: automated exposure control; mA and/or kV adjustment per patient size (includes targeted exa ms where dose is matched to clinical indication); or iterative reconstruction.
[2022-09-04] MEDS: Omnipaque 350 MG/ML 500 ML BTL-Imaging package 100 ML IJ (15:31)
[2022-09-04] MEDS: Normal Saline - Diluent 50 ML VIAL IJ (15:32)
== END 2022-09-04 02:12 ==
LOC: DI 01:52
PROVIDERS: PCP Family Medicine; Visit Provider Family Medicine
DX: R91.1 Solitary pulmonary nodule (principal)
CPT/HCPCS: 71260

== ENCOUNTER 2022-09-09 02:07 | Outpatient (CLI) | payer MEDICARE, SELFPAY ==
--- NOTE | 2022-09-09 08:00 | DI.MAMMO_ITS ---
Exam(s) MAMMO SCREENING EXAM: MAMMO SCREENING CLINICAL HISTORY: screening,z12.39. TECHNIQUE: Bilateral full field digital CC and MLO mammographic images were obtained with 3D tomosyn thesis and utilizing computer aided detection (CAD). COMPARISON: Prior mammograms were reviewed. FINDINGS: There has been no significant change in the appearance and distribution of the fibroglandular tissue. There are no CAD designations. There are no new spiculated masses nor malignant appearing microcalcification groups. There is no significant architectural distortion nor skin thickening-retraction. IMPRESSION: No radiographic evidence of malignancy. BI-RADS Category 1 - Negative Breast Density - Category B - Scattered areas of fibroglandular density Breast density Category C or D implies that the patient has dense breast tissue. Dense breast tissue can make it harder to find cancer on a mammogram. Dense breast tissue is also associated with an incr eased risk of breast cancer. This information about the result of the mammogram report was provided to the patient to raise their awareness. Use this report when you speak with the patient about their risks for breast cancer, which includes their family history. At that time, you may recommend additional screening tests (Ultrasoun d or MRI) as these tests may add significant information. A negative radiographic report should not delay biopsy if a dominant or clinically suspicious mass is present. Up to ten percent of cancers are not identified on mammography. A negative report may reinforce clinical impression. Adenosis and dense breasts may obscure an underlying neoplasm. False positive reports average 6 to 10%. Patient will receive a letter notifying them of these results.
== END 2022-09-09 02:27 ==
LOC: DI 02:07
PROVIDERS: PCP Family Medicine; Visit Provider Family Medicine
DX: Z12.31 Encounter for screening mammogram for malignant neoplasm of breast (principal)
CPT/HCPCS: 77063; 77067

== ENCOUNTER 2022-11-19 16:57 | Outpatient (CLI) | payer MEDICARE, SELFPAY ==
--- NOTE | 2022-11-19 14:30 | DI.RAD_ITS ---
Exam(s) XR KNEE RT 3V AP,LAT,JAMISON EXAM: XR KNEE RT 3V AP,LAT,JAMISON CLINICAL HISTORY: rt knee pain, M25.561. TECHNIQUE: 2D digital imaging was performed. Three views. COMPARISON: No exams were available for comparison FINDINGS: BONES: No acute fracture is present. No bony destructive lesion is seen. JOINTS: The knee is normally aligned. No joint effusion is seen. SOFT TISSUE: Normal. IMPRESSION: Unremarkable radiographs of the right knee. DATA REPOSITORY: RADIATION DOSE DELIVERED:
== END 2022-11-19 17:17 ==
LOC: DI 16:58
PROVIDERS: PCP Family Medicine; Visit Provider Family Medicine
DX: M25.561 Pain in right knee (principal)
CPT/HCPCS: 73562

== ENCOUNTER 2022-12-15 04:49 | Outpatient (CLI) | payer MEDICARE, SELFPAY ==
[2022-12-15 07:57] LABS: Calculated LDL 124 mg/dL (<100); Cholesterol 208 mg/dL (<200); HDL Cholesterol 66 mg/dL (40-60); Triglyceride 92 mg/dL (<150)
[2022-12-15 08:17] LABS: Vitamin D 25 Total 32.5 ng/mL (30-100)
== END 2022-12-15 04:50 | disposition home or self-care (01) ==
LOC: LBO 04:49
PROVIDERS: PCP Family Medicine; Visit Provider Family Medicine
DX: E78.5 Hyperlipidemia, unspecified (principal); E55.9 Vitamin D deficiency, unspecified
CPT/HCPCS: 36415; 80061; 82306

== ENCOUNTER 2023-03-11 09:17 | Outpatient (CLI) | payer MEDICARE, SELFPAY ==
[2023-03-12 10:46] LABS: Lyme Ab w Rflx to Lyme Confirm Negative (Negative)
[2023-03-13 19:54] LABS: Anaplasma phagocytophilum Negative (Negative); B. miyamotoi PCR Negative (Negative); Babesia divergens/MO-1 Negative (Negative); Babesia duncani Negative (Negative); Babesia microti Negative (Negative); Ehrlichia chaffeensis Negative (Negative); Ehrlichia ewingii/canis Negative (Negative); Ehrlichia muris eauclairensis Negative (Negative)
== END 2023-03-11 09:18 | disposition home or self-care (01) ==
LOC: LOS 09:17
PROVIDERS: PCP Family Medicine; Referring Provider Nurse Practitioner Family; Visit Provider Nurse Practitioner Family
DX: T14.8XXA Other injury of unspecified body region, initial encounter (principal); W57.XXXA Bitten or stung by nonvenomous insect and other nonvenomous arthropods, initial encounter
CPT/HCPCS: 36415; 87798; 86618

== ENCOUNTER 2023-05-15 22:13 | Emergency (ER) | payer MEDICARE, SELFPAY ==
--- NOTE | 2023-05-15 22:15 | DI.CT_ITS ---
Exam(s) CT HEAD WO EXAM: CT HEAD WO CLINICAL HISTORY: head injury. TECHNIQUE: Imaging Protocol: Axial computed tomography images with coronal and sagittal reformatted images were created and reviewed COMPARISON: No exams were available for comparison FINDINGS: There are no skull fractures. There is no fluid in the visualized paranasal sinuses. There is no evidence of intracranial hemorrhage, mass effect, or shift of midline structures. There are no extra-axial fluid collections. The ventricles are not enlarged or shifted and there is no blo od within the ventricular system nor within the basal cisterns. IMPRESSION: No acute intracranial findings on this noninfused CT scan of the brain. RADIATION DOSE DELIVERED: Total DLP DATA REPOSITORY: All CT scans at this facility are submitted to the National Radiology Data Registry (NRDR) Dose Index Registry (DIR) with the [employer] (ACR). RADIATION OPTIMIZATION: All CT scans at this facility use at least one of these dose optimization te chniques: automated exposure control; mA and/or kV adjustment per patient size (includes targeted exa ms where dose is matched to clinical indication); or iterative reconstruction.
[2023-05-15 22:16] VITALS: BP 189/80; PULSE 53; RESP 16; TEMP 36.6; O2SAT 100
--- NOTE | 2023-05-15 22:21 | ED.GENADUL_ITS ---
Discharge Plan Disposition Patient Disposition: Home Condition: Stable Discharge Details Clinical Impression: Head injury due to trauma, Back pain Primary Care Provider: Jennifer Smith ED Provider: Charla Anderson Home Meds and New Rx's Prescriptions: New cyclobenzaprine 10 mg tablet 10 mg PO TID PRNQty: 10 0RF No Action epinephrine [EpiPen] 0.3 mg/0.3 mL auto-injector 0.3 mg IM ONCE Qty: 2 3RF Rx Instructions: as a single dose ergocalciferol (vitamin D2) 1,250 mcg (50,000 unit) capsule 50,000 unit PO QWEEK Qty: 13 4RF clobetasol [Temovate] 0.05 % ointment 1 applic topical BID Qty: 60 1RF Discharge Instructions Instructions: Concussion (ED), Head Injury (ED), Back Pain (ED) Additional Instructions: Continue taking Tylenol and or Motrin as needed for pain. Return immediately if you develop vomiting or new neurologic symptoms. Referrals: Jennifer Simth MD, [place] [Primary Care Provider] - Discharge Data Discharge Physician: Charla Anderson Medical Decision Making 68-year-old female presents for evaluation after mechanical fall with head injury. At time my evaluation she is neurologically intact. NIH stroke score equals 0. She does have some pain to her right lower back. No bony tenderness. Given facial tingling will CT head. She will be treated with Tylenol and L idoderm patch. CT head is unremarkable. Patient and family counseled on post- concussive syndrome and signs/symptoms requiring re-evaluation. Patient agrees with plan and will return with worsening symptoms. HPI General Date/Time Provider Initiated Documentation: 05/15/23 22:14 . HPI Narrative: 68-year-old female presents for evaluation after fall. Patient states that she was reaching behind her when she fell backwards. She hit the back of her hand. Denies any loss of consciousness but did have some tingling sensation in her cheeks for about 45 minutes. Incident happened 1 hour prior to arrival. She denies any nausea or vomiting. No numbness or tingling in her extremities. No weakness in her extremities. No neck pain. She does have some right lower back pain. Prior history of back surgery with no recent issues with back pain. No chest pain or shortness of breath. No loss of bowel or bladder function. No saddle anesthesia. She is not on any blood thinners. Related Data Home Medications Medication Instructions Recorded Confirmed ergocalciferol (vitamin D2) 1,250 50,000 unit PO QWEEK #13 caps 03/20/22 12/04/22 mcg (50,000 unit) capsule epinephrine 0.3 mg/0.3 mL 0.3 mg (0.3 mL) IM ONCE #2 ea 06/05/22 12/04/22 injection, auto-injector (EpiPen) clobetasol 0.05 % topical ointment 1 applic topical BID #60 grams 07/03/22 12/04/22 (Temovate) cyclobenzaprine 10 mg tablet 10 mg PO TID PRN #10 tabs 05/15/23 Previous Rx's Medication Instructions Recorded ergocalciferol (vitamin D2) 1,250 50,000 unit PO QWEEK #13 caps 03/20/22 mcg (50,000 unit) capsule epinephrine 0.3 mg/0.3 mL 0.3 mg (0.3 mL) IM ONCE #2 ea 06/05/22 injection, auto-injector (EpiPen) clobetasol 0.05 % topical ointment 1 applic topical BID #60 grams 07/03/22 (Temovate) cyclobenzaprine 10 mg tablet 10 mg PO TID PRN #10 tabs 05/15/23 Allergies Allergy/AdvReac Type Severity Reaction Status Date / Time sulfamethoxazole Allergy Hives Unverified 03/11/23 08:59 [From Bactrim] trimethoprim [From Bactrim] Allergy Hives Unverified 03/11/23 08:59 General Stated Complaint: Fall/Non TraumaCriteria ROJAS: 3 Review of Systems Narrative: Remainder of review of systems otherwise negative except for as in the HPI x10. PFSH All Active Problems (Updated 05/15/23 @ 23:15 by Charla Anderson MD) Back pain (Acute) Head injury due to trauma (Acute) Knee pain, right (Acute) Hyperlipidemia (Acute) Lung nodule seen on imaging study (Acute) Vitamin D deficiency (Chronic 06/12/15) Annual physical exam (Acute) Spasm of muscle of lower back (Acute) Vegan diet (Acute) Fatigue (Acute) B12 deficiency (Acute) Encounter for screening for other viral diseases (Acute) Breast pain (Acute) Skin lesions (Acute) Elevated vitamin B12 level (Acute) Tick bite (Acute) Foot pain, right (Acute) Need for post exposure prophylaxis for rabies (Acute) Facial lesion (Acute) Skin lesion of back (Acute) Medical History Vulvar pruritus occassional. No visible lesions. Neg vag path screen. Uses Clobetasol PRN. Stress fracture, left foot, subsequent encounter for fracture with routine healing (05/16/15) Distal radius fracture (03/01/14) right Plantar fasciitis of left foot (08/08/15) Peroneal tendonitis of left lower leg (08/08/15) Menopausal state (02/18/12) Gallbladder disorder 2001 U/S: PHRYGIAN CAP, NO STONES; 08/10 U/S: NEG Stress fracture, left foot, subsequent encounter for fracture with routine h ealing Radius distal fracture Plantar fasciitis of left foot Surgical History History of section History of spinal surgery skin biopsy (04/30/10) punch bx of skin of chest back surgery (~2009) STRESS FX 2 METATARSALS OF LEFT FOOT + DX VIA MRI @ [facility] 05/16/15; BOOTS X 6 WEEKS; DR. IRAHETA section 1987 and 1997 Fracture, Open Treatment 08/09/14 RIGHT DISTAL RADIUS; HARDWARE REMOVED DUE TO COMPLICATIONS FRACTURE REPAIR 03/03/14 REPAIR OF FX WITH HARDWARE TO R DISTAL RADIUS Colonoscopy - MAC (09/04/17) 2005 Family History Mother , 88 No problems noted. Father , 70 Dementia Maternal Grandfather , MVA at age 40. No problems noted. Paternal Grandfather , 60+ Myocardial infarction Maternal Grandmother , MVA at age 40. No problems noted. Paternal Grandmother , 80 No problems noted. Son No problems noted. Daughter No problems noted. 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@ [employer] Pets and animals: Yes Pets and animals: dog(s) Sexually active: No Do you think of yourself as: straight/heterosexual Current gender identity: female What is your relationship status?: How often do you talk on the phone with friends or family?: three or more times per week Do you belong to any clubs or organized social groups?: no Panel score (0-1 are the most socially isolated patients): 2 What type of physical activity do you participate in: walking and bicycling Duration: 45-60 minutes/day Frequency: 3-4 times per week Annabelle/Moravian: None Special annabelle needs: No Seatbelt use: always Helmet use: Yes Helmet use: always Drive intox or ride w/intox regional company truck driver: No Do you feel safe at home: Yes Do you feel safe in your relationship?: Yes Victim of physical abuse: No Victim of emotional abuse: No Victim of sexual abuse: No Would you like helpful sources: No Female Reproductive History Menstrual Menopause type: natural History History 2 Para 2 Hx # Term Pregnancies 2 Multiple births Hx # Pregnancies Ectopic pregnancies AB induced Hx Number of Living Children 2 AB spontaneous Exam Narrative Exam Narrative: General: non-toxic, no respiratory distress, comfortable HEENT: normocephalic, atraumatic, lids and lashes normal, PERRL, EOMI, anicteric sclera, no conjunctival injection, moist oral mucosa Neck: No vertebral tenderness Card: regular rate and rhythm, S1S2, no murmurs, rubs, or gallops Lungs: good air entry, clear to auscultation bilaterally. no wheezes, rales, rhonchi, or retractions Abd: soft, non-tender, non-distended, normal bowel sounds, no rebound or guarding, no peritoneal signs Musculoskeletal: full range of motion of arms and legs, no tenderness to palpation. no clubbing, cyanosis, or edema Back exam: + Left lumbosacral paraspinal tenderness, no mid-line tenderness, normal strength & sensation, negative SLR's, DTR's 2+ bilaterally Neurologic: Neurologic exam: GSC 15, CN 2-12 intact bilaterally, speech normal, strength normal, sensation intact distally in all four extremities, gait normal, 2+ biceps tendon reflexes, normal finger to nose, normal rapid alternating movements, no pronator drift Psych: alert and oriented Skin: no petechiae, no lesions, warm and dry Course Vital Signs Vital signs: Vital Signs Temperature 36.6 C 05/15/23 22:16 Pulse 53 L 05/15/23 22:16 Respiratory Rate 16 05/15/23 22:16 Blood Pressure 189/80 H 05/15/23 22:16 Pulse Oximetry 100 05/15/23 22:16 Temperature 36.6 C 05/15/23 22:16 Temperature Source Temporal Artery Scan 05/15/23 22:16 Pulse 53 L 05/15/23 22:16 Respiratory Rate 16 05/15/23 22:16 Blood Pressure 189/80 H 05/15/23 22:16 Pulse Oximetry 100 05/15/23 22:16 Oxygen Delivery Method Room Air 05/15/23 22:16 Oxygen Flow Rate 0 05/15/23 22:16
[2023-05-15] MEDS: Acetaminophen 500 MG TAB 1000 MG PO (22:27)
[2023-05-15] MEDS: Lidocaine 5% Patch 1 PATCH TP (22:27)
--- NOTE | 2023-05-15 23:02 | DI.VRAD_ITS ---
PROCEDURE INFORMATION: Exam: CT Head Without Contrast Exam date and time: 05/15/2023 10:48 PM Age: 68 years old Clinical indication: Injury or trauma; Fall; Blunt trauma (contusions or hematomas); Additional info: Head injury TECHNIQUE: Imaging protocol: Computed tomography of the head without contrast. COMPARISON: No relevant prior studies available. FINDINGS: Brain: Unremarkable for age. No hemorrhage. Unremarkable white matter. No mass effect. Cerebral ventricles: No ventriculomegaly. Paranasal sinuses: Visualized sinuses are unremarkable. No fluid levels. Mastoid air cells: Visualized mastoid air cells are well aerated. Bones/joints: Unremarkable. No acute fracture. Soft tissues: Unremarkable. IMPRESSION: No acute intracranial abnormality. Dictated and Authenticated by: Simone Ferro MD. Ordering:CONCHITA Dunham MD
== END 2023-05-15 23:30 | disposition home or self-care (01) ==
PROVIDERS: Emergency Provider Emergency Medicine Emergency Medical Services; PCP Family Medicine
DX: M54.9 Dorsalgia, unspecified (principal); S09.90XA Unspecified injury of head, initial encounter; W19.XXXA Unspecified fall, initial encounter
CPT/HCPCS: 99284; 70450; 99283

== ENCOUNTER → 2023-06-15 02:57 | Outpatient (CLI) | payer MEDICARE, SELFPAY ==
--- NOTE | 2023-06-15 15:05 | DI.CT_ITS ---
Exam(s) CT CHEST WO EXAM: CT CHEST WO CLINICAL HISTORY: f/u CT Chest,lung nodule,r91.1 TECHNIQUE: Imaging Protocol: Axial computed tomography images with coronal and sagittal reformatted images were created and reviewed CONTRAST MATERIAL: Intravenous: Omnipaque 350 Contrast volume:structured data ml. COMPARISON: CR XR CHEST 2V PA LATERAL from 08/08/[address] CHEST W from 09/04/2022 FINDINGS: Pulmonary parenchyma: No consolidation. No dominant measurable mass. No change in size or appearance perifissural nodule at minor fissure between right upper and middle lobes. Tracheobronchial tree: No bronchiectasis or mucous plugging. Mediastinum and Mirian: No dominant adenopathy or fluid collection. Pleura: No effusion. No pneumothorax. Heart: The heart is not dilated. No coronary artery calcifications are seen. Aorta: Thoracic aorta non-dilated. Mild atherosclerotic changes. Upper abdomen: Unremarkable. Bones: Degenerative changes in the spine. Soft tissues: Unremarkable. IMPRESSION: Stable benign-appearing Teresa fissural nodule. For low risk patients, no further follow-up is recomme nded. For high risk patients optional low-dose screening CT could be performed in 1 year. RADIATION DOSE DELIVERED: Total DLP DATA REPOSITORY: All CT scans at this facility are submitted to the National Radiology Data Registry (NRDR) Dose Index Registry (DIR) with the [employer] [place] [employer] (ACR). RADIATION OPTIMIZATION: All CT scans at this facility use at least one of these dose optimization te chniques: automated exposure control; mA and/or kV adjustment per patient size (includes targeted exa ms where dose is matched to clinical indication); or iterative reconstruction.
== END ==
PROVIDERS: PCP Family Medicine; Visit Provider Family Medicine
DX: R91.1 Solitary pulmonary nodule (principal)
CPT/HCPCS: 71250

== ENCOUNTER → 2023-06-26 10:15 | Outpatient (CLI) | payer MEDICARE, SELFPAY ==
--- NOTE | 2023-06-26 09:13 | DI.US_ITS ---
Exam(s) US AAA SCREENING EXAM: US AAA SCREENING CLINICAL HISTORY: ABD PULSATILE MASS, R19.00 COMPARISON: US ABDOMEN LIMITED/FOLLOW UP US from 04/23/[address] CHEST WO from 06/15/2023 FINDINGS: Abdominal Aorta: Proximal: 1.7 x 2.6 cm Mid: 2.1 x 2.7 cm Distal: 1.7 x 1.8 cm Iliacs: Right: 0.6 x 2.1 cm Left: 1.2 x 1 cm Atherosclerosis is present. IMPRESSION: 1. No evidence of abdominal aortic aneurysm. 2. Ectasia of the right iliac artery. DATA REPOSITORY:
== END ==
PROVIDERS: PCP Family Medicine; Visit Provider Family Medicine
DX: Z13.6 Encounter for screening for cardiovascular disorders (principal)
CPT/HCPCS: 36415; 76706; 82607

== ENCOUNTER 2023-06-26 12:10 | Outpatient (CLI) | payer MEDICARE, SELFPAY ==
[2023-06-26 13:29] LABS: Vitamin B12 465 pg/mL (193-986)
== END 2023-06-26 12:11 | disposition home or self-care (01) ==
LOC: LBO 12:10
PROVIDERS: PCP Family Medicine; Visit Provider Family Medicine
DX: E53.8 Deficiency of other specified B group vitamins (principal)
CPT/HCPCS: 36415; 82607

== ENCOUNTER → 2023-11-10 04:44 | Outpatient (CLI) | payer MEDICARE, SELFPAY ==
--- NOTE | 2023-11-10 06:45 | DI.MAMMO_ITS ---
Exam(s) MAMMO SCREENING EXAM: MAMMO SCREENING CLINICAL HISTORY: screening TECHNIQUE: Bilateral full field digital CC and MLO mammographic images were obtained with 3D tomosyn thesis and utilizing computer aided detection (CAD). COMPARISON: Available for comparison. FINDINGS: Masses/Architectural Distortion: There is a question of a new area of architectural distortion in the upper central right breast on the MLO view. Microcalcifications: No suspicious pleomorphic-type are seen. Skin Thickening/Nipple Retraction: None. IMPRESSION: 1. Question of a new area of architectural distortion in the upper central right breast on the MLO vi ew. 2. This area should be further evaluated with a spot compression view. Ultrasound may also be necess julieth at that time. BI-RADS Category 0 - Assessment Incomplete: Need additional imaging evaluation Breast Density - Category B - Scattered areas of fibroglandular density Breast density category C or D implies that the patient has dense breast tissue. Dense breast tissue is very common and is not abnormal but dense breast tissue can make it harder to find cancer on a ma mmogram. Also, dense breast tissue may increase their breast cancer risk. This information about the result of the mammogram report was provided to the patient to raise their awareness. Use this report when you speak with the patient about their risks for breast cancer, which includes their family hist ory. At that time, you may recommend for more screening tests (Ultrasound or MRI) as they might be us eful based on their risk. A negative radiographic report should not delay biopsy if a dominant or clinically suspicious mass is present. Up to ten percent of cancers are not identified on mammography. A negative report may reinforce clinical impression. Adenosis and dense breasts may obscure an underlying neoplasm. False positive reports average 6 to 10%. Patient will receive a letter notifying them of these results.
== END ==
PROVIDERS: PCP Family Medicine; Visit Provider Family Medicine
DX: Z12.31 Encounter for screening mammogram for malignant neoplasm of breast (principal); R92.8 Other abnormal and inconclusive findings on diagnostic imaging of breast
CPT/HCPCS: 77063; 77067

== ENCOUNTER → 2023-11-12 00:39 | Outpatient (CLI) | payer MEDICARE, SELFPAY ==
--- NOTE | 2023-11-12 | DI.US_ITS ---
Exam(s) MG MAMMO SCREEN CALL BACK UNI US BREAST RT LIMITED EXAM: MG MAMMO SCREEN CALL BACK UNI and U/S breast RT limited CLINICAL HISTORY: F/U ABNL MAMMO, R92.8, ? NEW AREA ARCHITECTURAL DISTORTION RT BREAST. TECHNIQUE: Craniocaudal and mediolateral oblique Full Field Digital Mammography views of the right b reast with Computer Aided Diagnosis followed by Tomosynthesis and right breast ultrasound. COMPARISON: Comparison is made with prior examinations. FINDINGS: Mammography/Tomosynthesis: Masses/Architectural Distortion: The area of concern does not persist on the current examination. Microcalcifictions: No suspicious pleomorphic-type are seen. Skin Thickening/Nipple Retraction: None. Limited right breast US: Echotexture: Normal appearance of the glandular tissue. Shadowing: No suspicious foci. Cyst: None. Solid lesions: None seen. Ductal dilation: None. IMPRESSION: 1. No definite evidence of malignancy is noted. 2. A six-month follow-up right mammogram is requested for re-evaluation. 3. The findings were discussed with the patient on the date of the examination. BI-RADS Category 3 - 6 month - Probably Benign Finding: Recommend follow-up imaging in 6 months Breast Density - Category B - Scattered areas of fibroglandular density Breast density Category C or D implies that the patient has dense breast tissue. Dense breast tissue can make it harder to find cancer on a mammogram. Dense breast tissue is also associated with an incr eased risk of breast cancer. This information about the result of the mammogram report was provided to the patient to raise their awareness. Use this report when you speak with the patient about their risks for breast cancer, which includes their family history. At that time, you may recommend additional screening tests (Ultrasoun d or MRI) as these tests may add significant information. A negative radiographic report should not delay biopsy if a dominant or clinically suspicious mass is present. Up to ten percent of cancers are not identified on mammography. A negative report may reinforce clinical impression. Adenosis and dense breasts may obscure an underlying neoplasm. False positive reports average 6 to 10%. Patient will receive a letter notifying them of these results.
== END ==
PROVIDERS: PCP Family Medicine; Visit Provider Family Medicine
DX: R92.8 Other abnormal and inconclusive findings on diagnostic imaging of breast (principal); Z12.31 Encounter for screening mammogram for malignant neoplasm of breast
CPT/HCPCS: 76642; 77063; 77067

== ENCOUNTER 2024-02-10 17:37 | Outpatient (CLI) | payer MEDICARE, SELFPAY ==
--- OUTSIDE RECORDS SUMMARY | 2024-02-10 17:39 | XMS_ITS | Referral Summary ---
Author Organization [facility] Address [address] [place] [id number] Care Team Providers Care Mine Development Engineer Name Role Phone Jennifer Smith MD Primary Care Provider [phone] Allergies Active Allergy Reactions Criticality Noted Date Comments Sulfamethoxazole-Trimethoprim Rash 2021 Medications Medication Sig Dispensed Refills Start Date End Date Status rabies vaccine, PCEC, (RABAVERT) 2.5 unit injection kit Inject 1 mL into the muscle once for 2 doses. Administer on 10/23/21 and 10/30/21. 2 mL 10/17/2021 Active Immunizations Name Administration Dates Next Due Rabies Vaccine IM (RABAVERT) 10/30/2021,10/20/19,10/16/2021 Td 08/01/2004 Tdap Vaccine =>7YO IM 10/16/2021 Social History Tobacco Use Types Packs/Day Years Used Date Smoking Tobacco: Never Smokeless Tobacco: Never Alcohol Use Standard Drinks/Week Comments Yes 2 (1 standard drink = 0.6 oz pur e alcohol) Interpersonal Safety Answer Date Record ed Physically Hurt Never 02/05/2020 Verbally Threaten Not on file 02/05/2020 Sex and Gender Information Value Date Recorded Sex Assigned at Not on file Gender Identity Female 10/16/2021 16:29 EDT Sexual Orientation Not on file Last Filed Vital Signs Vital Sign Reading Time Taken Comments Blood Pressure 168/82 10/16/2021 1459 EDT Pulse 50 10/16/2021 1459 EDT Temperature 36.5 ??C (97.7 ??F) 10/16/2021 1459 EDT Respiratory Rate 17 10/16/2021 1459 EDT Oxygen Saturation 100% 10/16/2021 1459 EDT Inhaled Oxygen Concentration - - Weight 72.6 kg (160 lb) 10/16/2021 1459 EDT Height 170.2 cm (5' 7) 10/16/2021 1459 EDT Body Mass Index 25.06 10/16/2021 1459 EDT Plan of Treatment Not on file Care Teams Mine Development Engineer Relationship Specialty Start Date End Date Jennifer Smith MD PCP - General 06/17/16
--- OUTSIDE RECORDS SUMMARY | 2024-02-10 17:39 | XMS_ITS | Encounter Summary ---
Author Organization [facility] Address [address] [place] [address] Care Team Providers Care Air Crew Member Name Role Phone Unavailable Primary Care Provider Unavailabl e Encounter Details Date Type Department Care Team (Late st Contact Info) Description 04/30/2010 Results Only [facility] [phone] Latrell Castro, DO [address] [place] [address] Social History Tobacco Use Types Packs/Day Years Used Date Smoking Tobacco: Never Assessed Sex and Gender Information Value Date Recorded Sex Assigned at Not on file Gender Identity Female 10/16/2021 16:29 EDT Sexual Orientation Not on file documented as of this encounter Plan of Treatment Not on file documented as of this encounter Procedures Procedure Name Priority Date/Time Associated Diagnosis Comments SURGICAL PATHOLOGY Routine 04/30/2010 0:00 EDT documented in this encounter Results * SURGICAL PATHOLOGY (04/30/2010 0:00 EDT) Pathology Report: SURGICAL PATHOLOGY REPORT ? Reports generated via electronic interface contain original data; ? however they are lacking the format of the original report. ? Caution should be taken when reading/interpreting unformatted reports. ? Name: ? LELONG, ANEA G ? Accession #: ? [id number] ? : ? 1955 (Age: 54) ??F ? Collect Date: ? 04/30/2010 ? Location: ? [facility] ? Receive Date: ? 05/01/2010 ? Provider: LATRELL CASTRO DO ? Copy to: CHRIS M DOBBERTIN MD ? Final Pathologic Diagnosis: ? Skin of chest, punch biopsy: ? - Lichenoid keratosis (lichen planus-like keratosis). ? Microscopic Description: ? There is mild compact ortho- and parakeratosis. ??The epidermis is of ? variable thickness with areas of relative rete effacement. ??The dermis is marked by a lichenoid lymphomononuclear inflammatory infiltrate that partially obscures the dermal-epidermal interface. ??The infiltrate is associated with vacuolar ? change of the basal keratinocytes and scattered necrotic cells. ??Melanophages ?? are present in the superficial dermis. ??(Dr. Keller)/tmg ? Document reviewed and electronically signed by: ? CONSTANCE KELLER MD ? Report ??Date: 05/02/2010 13:44 ? By the signature above, the attending physician certifies that he/she has ? personally conducted a gross and/or microscopic examination of the described ? specimens and rendered or confirmed the above diagnosis. ? Specimen(s) Received: ? 4.0 mm skin punch biopsy ? Clinical History: ? 5.0 mm skin lesion on chest. ? Gross Description: ? Received in formalin labelled [place], Anea and 5.0 mm skin lesion chest is a punch biopsy of moss skin measuring 0.2 cm in diameter and 0.2 cm in ? thickness. ??The specimen is submitted entirely in one cassette. ??(Niranjan Fairchild)/raeannk ? End of Report ? [facility] 04/30/2010 05/01/2010 9:2 6 EDT Latrell Castro DO PATHOLOGY ORDERABLES [facility] [address] [place] [address] documented in this encounter Visit Diagnoses Not on filedocumented in this encounter
--- OUTSIDE RECORDS SUMMARY | 2024-02-10 17:39 | XMS_ITS | Clinical Summary ---
Author Organization [facility] Address [address] [place] [id number] Care Team Providers Care District Sales Representative Name Role Phone Jennifer Smith MD Primary Care Provider [phone] Allergies Active Allergy Reactions Criticality Noted Date [...] 16:29 EDT Sexual Orientation Not on file Obstetrics History Last Filed Vital Signs Vital Sign Reading [...] 25.06 10/16/2021 1459 EDT Plan of Treatment Health Maintenance Due Date Last Done Comments Hepatitis C Screen 1955 RSV Immunization ( o r 60+ Years) (1 - 1-dose 60+ series) 2015 Fall Risk Screening 2020 COVID-19 Vaccine (2022-24 season) 2023 Care Teams District Sales Representative Relationship Specialty Start Date End Date Jennifer Smith MD PCP - General 06/17/16
--- OUTSIDE RECORDS SUMMARY | 2024-02-10 17:39 | XMS_ITS | Encounter Summary ---
Author Organization [facility] Address [address] [place] [address] Care Team Providers Care Mid Level Game Designer Name Role Phone Jennifer Smith MD Primary Care Provider [phone] Reason for Visit * Reason Onset Date Comments Appointment Related 10/17/2021 Encounter Details Date Type Department Care Team (Late st Contact Info) Description 10/17/2021 Telephone [facility] [address] [place] [phone] [place] Appointment Related Social History Tobacco Use Types Packs/Day Years [...] 16:29 EDT Sexual Orientation Not on file COVID-19 Exposure Response Date Recorded In the last 10 days, have yo u been in contact with someone who was confirmed or suspected to have Coronavirus/COVID-19? No / Unsure 10/16/2021 15:04 EDT documented as of this encounter Miscellaneous Notes * Telephone Encounter - Carrie YAP - 10/17/2021 1259 EDT Called PT to schedule Rabervert injections. PT presented at ED 10/16, with next injection scheduled at Infusion Center on 10/19. PT stated she wanted to complete final injections (10/23 and 10/30) at [facility] in [facility]. I spoke with Sandra in ED who didn't believe [facility] could order meds at [facility]. I relayed this to PT offering to complete all injections at [facility]. PT contacted her Oil Gauger (Leonor at [facility] [phone]). Leonor contacted the Infusion Ctr to say all that was required wasfor [facility] to co-sign the orders with a [facility] provider - she didn't understand what the problem was. Leonor stated the PT was told she would receive an Rx for ABX, which she dd not receive. This information was relayed to Sandra at the [facility] ED. Sandra stated she would contact Leonor to further coordinate care. documented in this encounter Plan of Treatment Not on file documented as of this encounter Visit Diagnoses Not on filedocumented in this encounter Care Teams Mid Level Game Designer Relationship Specialty Start Date End Date Jennifer Smith MD PCP - General 06/17/16 documented as of this encounter
--- OUTSIDE RECORDS SUMMARY | 2024-02-10 17:39 | XMS_ITS | Encounter Summary ---
Author Organization [facility] Address [address] [place] [address] Care Team Providers Care Manufacturing Advisor Name Role Phone Jennifer Smith MD Primary Care Provider [phone] Encounter Details Date Type Department Care Team (Late st Contact Info) Description 02/01/2020 Lab Requisition [facility] Pathology & Laboratory Medicine - [address] [address] Outr Resulting Lab, Provider Social History Tobacco Use Types Packs/Day Years Used Date Smoking Tobacco: Never Assessed Interpersonal Safety Answer Date Record ed Physically [...] Procedure Name Priority Date/Time Associated Diagnosis Comments QUANTIFERON TB GOLD PLUS Routine 01/31/2020 16:14 EDT documented in this encounter Results * QUANTIFERON TB GOLD PLUS (01/31/2020 16:14 EDT) Quantiferon Interpretation Negative Negative 02/03/2020 13:48 EDT [facility] Comment: No interferon-gamma response to M. tuberculosis antigens was detected. ??Infection with M. tuberculosis is unlikely. A single negative result does not exclude infection with M. tuberculosis. ??In patients at high risk for M. tuberculosis infection, a second test should be considered in accordance with the 2017 ATS/IDSA/CDC Clinical Practice Guidelines for Diagnosis of Tuberculosis in Adults and Children. [Lambert PALOMARES et. al. Clin. Infect. Dis. 2017:64 (2) ??: 111-115]. Results were obtained with the Qiagen QuantiFERON TB Gold Plus EITAN. TB1 Ag minus Nil 0.00 IU/ml 02/03/20 13:48 EDT [facility] TB2 Ag minus Nil 0.00 IU/mL 02/03/20 13:48 EDT [facility] Blood VENOUS BLOOD / Unknown 01/31/2020 16:14 EDT 02/01/2020 15:59 EDT Narrative [facility] - 02/03/2020 13:48 EDT Results were obtained with the Qiagen QuantiFERON-TB Gold Plus EITAN. Provider Outr Resulting Lab CHEMISTRY & BLOOD GAS ORDERABLES [facility] [address] [place] [address] documented in this encounter Visit Diagnoses Not on filedocumented in this encounter Care Teams Manufacturing Advisor Relationship Specialty Start Date End Date Jennifer Smith MD PCP - General 06/17/16 documented as of this encounter
--- OUTSIDE RECORDS SUMMARY | 2024-02-10 17:39 | XMS_ITS | Encounter Summary ---
Author Organization [facility] Address [address] [place] [address] Care Team Providers Care Industrial Cleaning Technician Name Role Phone Jennifer Smith MD Primary Care Provider [phone] Encounter Details Date Type Department Care Team (Latest Contact Info) Description 09/09/2017 13:09 EST - 09/09/2017 23:59 EST Hospital Encounter [address] [address] Unknown, Provider, Discharge Disposition: Home or Self Care Social History Tobacco Use Types Packs/Day Years Used Date Smoking Tobacco: Never Assessed Sex and Gender Information Value Date Recorded Sex Assigned at Not on file Gender Identity Female 10/16/2021 16:29 EDT Sexual Orientation Not on file documented as of this encounter Discharge Disposition Disposition Code Departure Means Destination Home or Self [facility] documented in this encounter Plan of Treatment Not on file documented as of this encounter Visit Diagnoses Not on filedocumented in this encounter Care Teams Industrial Cleaning Technician Relationship Specialty Start Date End Date Jennifer Smith MD PCP - General 06/17/16 documented as of this encounter
--- OUTSIDE RECORDS SUMMARY | 2024-02-10 17:39 | XMS_ITS | Encounter Summary ---
Author Organization [facility] Address [address] [place] [address] Care Team Providers Care Design Eng Name Role Phone Jania Jones NP Primary Care Provider Devin somers Encounter Details Date Type Department Care Team (Late st Contact Info) Description 06/12/2016 Results Only [facility]- [facility] [phone] Viktoria Tucker MD [facility] [place], [place] [address] Social History Tobacco Use Types Packs/Day Years [...] Date/Time Associated Diagnosis Comments SURGICAL PATHOLOGY Routine 06/12/2016 20 :02 EST PAP TEST- RESULT ONLY Routine 06/12/2016 0:00 EST documented in this encounter Results * SURGICAL PATHOLOGY (06/12/2016 20:02 EST) Pathology Report: SURGICAL PATHOLOGY REPORT Reports generated via electronic interface contain original data; however they are lacking the format of the original report. Caution should be taken when reading/interpreting unformatted reports. Name: ? BHUMI VIDAL ? Accession #: ? [id number] ? : ? 1955 (Age: 61) ??F ? Collect Date: ? 06/12/2016 ? Location: ? [facility] ? Receive Date: ? 06/13/2016 ? Provider: VIKTORIA TUCKER MD Copy to: CHRIS CHAMBERLAIN MD ? Final Pathologic Diagnosis: A. ??SKIN OF VULVA, RIGHT, FISSURE, PUNCH BIOPSY: - Slight epidermal acanthosis with sparse inflammation and scattered dermal melanophages. ??See microscopic and comment. B. ??SKIN OF VULVA, HYPERPIGMENTED LESION, PUNCH BIOPSY: - Slight epidermal acanthosis with mild dermal inflammation and scattered dermal melanophages. Comment: The findings are relatively non-specific, despite deeper levels. ??In specimen A, a well developed histologic correlate to the fissure noted clinically is not identified. ??Rather, the epidermis shows slight hyperplasia and hyperkeratosis with dermal melanophages. ??No fungal organisms are noted. ??In specimen B, from the hyperpigmented lesion, the findings are similar to specimen A, although include a slightly greater degree of inflammation and dermal melanophages. 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 ??Clinical correlation is essential. ??(Dr. Zaman)/jazz Microscopic Description: Two punch biopsies are received, both of which show similar findings. ??There is basketweave to compacted orthokeratosis with slight hyperkeratosis. ??The epidermis shows slight acanthosis. ??There is sparse lymphomononuclear inflammation admixed with dermal melanophages. The infiltrate is greater in specimen (B). The epidermis does not show appreciable spongiosis or evidence of interface alteration. ??PAS-D stain, performed on block A1, is negative. ??Deeper levels have been examined on blocks A1 and B1. ??(Dr. Zaman)/jazz Document reviewed and electronically signed by: CONSTANCE ZAMAN MD Report ??Date: 06/19/2016 12:44 By the signature above, the attending physician certifies that he/she has personally conducted a gross and/or microscopic examination of the described specimens and rendered or confirmed the above diagnosis. Specimen(s) Received: A. ?Vulvar bx of fissure areas B. ? Vulvar bx of hyperpigmented region Clinical History: Vulvar itching, pigmented area with pruritus Gross Description: A. ?Received in formalin labelled with proper patient identification (initials L, A) and right vulvar fissure is a punch biopsy of moss-pink skin (0.3 x 0.2 x 0.2 cm). There is an ill-defined eccentric moss-pink papule that measures 4.2 x 0.2 x 0.1 cm. Submitted intact entirely in A1. B. ?Received in formalin labelled with proper patient identification (initials L, A) and right vulvar pigmentation is a punch biopsy of moss-pink skin (0.3 x 0.2 x 0.2 cm). There is an ill-defined eccentrically placed moss-brown papule that measures 0.1 x 0.1 x 0.1 cm. Submitted intact entirely in B1. Dr. Dexter 06/14/2016 7:28 AM End of Report [facility] 06/12/2016 20:0 2 EST 06/13/2016 20:02 EST Viktoria Tucker MD PATHOLOGY ORDERABLES [facility] [address] [place] [address] * PAP TEST- RESULT ONLY (06/12/2016 0:00 EST) Pathology Report: CYTOPATHOLOGY REPORT Reports generated via electronic interface contain original data; however they are lacking the format of the original report. Caution should be taken when reading/interpreti ng unformatted reports. Name: ? LETIM, DINOA G ? Accession #: ? [id number] ? : ? 1955 (Age: 61) ??F ?Collect Date: ? 06/12/2016 ? Location: ? [facility] ? Receive Date: ? 06/13/2016 ? Provider: VIKTORIA TUCKER MD Copy to: CHRIS CHAMBERLAIN MD ? Final Report SPECIMEN ADEQUACY ? Satisfactory for Evaluation - transformation zone component present GENERAL CATEGORIZATION ? Negative for Intraepithelial Lesion or Malignancy ?? Hormonal/Contracep tive status: None Other: Previous NIL Pap(s): 2012 Specimen/Source: ??Pap Test, Cervix/Endocervix, ThinPrep Imaging System with manual evaluation Document reviewed and electronically signed by: ? KAREN Sanchez(ASCP) ? Report ??Date: 06/17/2016 12:05 HPV with Pap Test ? Date Ordered: ? 06/17/2016 ? Status: ?? Signed Out ?Date Complete: ? 06/19/2016 ? By: ??System Interface ? Date Reported: ? 06/19/2016 ? Interpretation RESULT: Negative for HPV. No E6 or E7 mRNA is detected from HPV types 16,18,31,33,35, 39,45,51,52,56,58, 59,66, and 68 by surgical lead mediated amplification. Comments Document reviewed and electronically signed by: ? System Interface ? Report date: 06/19/2016 By the signature above, the attending physician certifies that he/she has personally conducted a gross and/or microscopic examination of the described specimens and rendered or confirmed the above diagnosis. End of Report [facility] 06/12/2016 06/13/2016 Viktoria Tucker MD PATHOLOGY ORDERABLES Performing Organization Address City/State/[facility] Co de Phone Number [facility] [address] [place] [address] documented in this encounter Visit Diagnoses Not on filedocumented in this encounter Care Teams Design Eng Relationship Specialty Start Date End Date Jania Jones, CASHIER COURTESY BOOTH PCP - General 05/02/10 06/16/16 documented as of this encounter
--- OUTSIDE RECORDS SUMMARY | 2024-02-10 17:39 | XMS_ITS | Encounter Summary ---
Author Organization [facility] Address [address] [place] [address] Care Team Providers Care Glue Size Machine Operator Name Role Phone Jennifer Smith MD Primary Care Provider [phone] Encounter Details Date Type Department Care Team (Late st Contact Info) Description 12/06/2020 Lab Requisition [facility] Pathology & Laboratory Medicine - [address] [address] Outr Resulting Lab, Provider Social History Tobacco [...] Procedure Name Priority Date/Time Associated Diagnosis Comments LYME AB Routine 12/06/2020 13:24 EDT documented in this encounter Results * LYME AB (12/06/2020 13:24 EDT) Lyme Ab Negative Negative 12/07/2020 10:44 EDT [facility] Comment:New 3rd generation a ssay in use 12/14/2019 Blood VENOUS BLOOD / Unknown 12/06/2020 13:24 EDT 12/06/2020 20:20 EDT Provider Outr Resulting Lab IMMUNOLOGY A ND SEROLOGY ORDERABLES [facility] [address] [place] [address] documented in this encounter Visit Diagnoses Not on filedocumented in this encounter Care Teams Glue Size Machine Operator Relationship Specialty Start Date End Date Jennifer Smith MD PCP - General 06/17/16 documented as of this encounter
--- OUTSIDE RECORDS SUMMARY | 2024-02-10 17:39 | XMS_ITS | Encounter Summary ---
Author Organization [facility] Address [address] [place] [address] Care Team Providers Care Manager Knowledge Name Role Phone Jennifer Smith MD Primary Care Provider [phone] Encounter Details Date Type Department Care Team (Late st Contact Info) Description 02/21/2021 Lab Requisition [facility] Pathology & Laboratory Medicine - [address] [address] Outr Resulting Lab, Provider Social History Tobacco [...] Procedure Name Priority Date/Time Associated Diagnosis Comments ZZCOVID-19 TEST [facility] PCR Today 02/20/2021 10:00 EDT COVID-19 TESTING Routine 02/20/2021 10:0 0 EDT documented in this encounter Results * COVID-19 TEST [facility] PCR (02/20/2021 10:00 EDT) Swab ENTIRE NASOPHARYNX / Unknown 02/20/2021 10:00 EDT 02/21/2021 15:41 EDT Provider Outr Resulting Lab MICROBIOLOGY - GENERAL ORDERABLES [facility] [address] [place] [address] * COVID-19 TESTING (02/20/2021 10:00 EDT) COVID-19 rt-PCR Result Negative Negative 02/21/2021 18:54 EDT [facility] Comment: This test has not been FDA cleared or approved. This test has been authorized by FDA under an EUA for use by authorized laboratories. This test has been authorized only for detection of nucleic acid from 2019-nCoV, not for any other viruses or pathogens. This test is only authorized for the duration of the declaration that circumstances exist justifying the authorization of emergency use of in vitro diagnostic tests for detection and/or diagnosis of 2019-nCoV under section 564(b)(1) of Act, 21 U.S.C ?? 360bbb-3(b) (1), unless the authorization is terminated or revoked sooner. Negative results do not preclude 2019-nCoV infection and should not be used as the sole basis for treatment or other patient management decisions. Negative results must be combined with clinical observations, patient history, and epidemiological information. Performed on the Spinnaker Coatingher Fusion instrument Performing Lab [place] [facility] 02/21/2021 18:54 EDT [facility] Swab 02/20/2021 10:0 0 EDT 02/21/2021 15:41 EDT Provider Outr Resulting Lab MICROBIOLOGY - GENERAL ORDERABLES Performing Organization Address [facility] Co de Phone Number [facility] [address] [place] [address] documented in this encounter Visit Diagnoses Not on filedocumented in this encounter Care Teams Manager Knowledge Relationship Specialty Start Date End Date Jennifer Smith MD PCP - General 06/17/16 documented as of this encounter
--- OUTSIDE RECORDS SUMMARY | 2024-02-10 17:39 | XMS_ITS | Encounter Summary ---
Author Organization [facility] Address [address] [place] [address] Care Team Providers Care Sand Sifter Name Role Phone Jennifer Smith MD Primary Care Provider [phone] Encounter Details Date Type Department Care Team (Late st Contact Info) Description 08/30/2021 Lab Requisition [facility] Pathology & Laboratory Medicine - [address] [address] Outr Resulting Lab, Provider Social History Tobacco [...] Comments ZZCOVID-19 TEST [facility] PCR Today 08/30/2021 11:06 EST COVID-19 TESTING Routine 08/30/2021 11:0 6 EST documented in this encounter Results * COVID-19 TEST [facility] PCR (08/30/2021 11:06 EST) Swab 08/30/2021 11:0 6 EST 08/30/2021 16:19 EST Provider Outr Resulting Lab MICROBIOLOGY - GENERAL ORDERABLES [facility] [address] [place] [address] * COVID-19 TESTING (08/30/2021 11:06 EST) COVID-19 rt-PCR Result Negative Negative 08/30/2021 22:27 EST [facility] Comment: This test has not [...] history, and epidemiological information. Performed on the Skwiblher Fusion instrument Performing Lab [place] [facility] 08/30/2021 22:27 EST [facility] Swab 08/30/2021 11:0 6 EST 08/30/2021 16:19 EST Provider Outr Resulting Lab MICROBIOLOGY - GENERAL ORDERABLES [facility] [address] [place] [address] documented in this encounter Visit Diagnoses Not on filedocumented in this encounter Care Teams Sand Sifter Relationship Specialty Start Date End Date Jennifer Smith MD PCP - General 06/17/16 documented as of this encounter
--- OUTSIDE RECORDS SUMMARY | 2024-02-10 17:39 | XMS_ITS | Encounter Summary ---
Author Organization [facility] Address [address] [place] [address] Care Team Providers Care Warehouse Receiver Name Role Phone Jennifer Smith MD Primary Care Provider [phone] Reason for Visit * Reason Onset Date Comments Appointment Related 10/30/2021 Encounter Details Date Type Department Care Team (Late st Contact Info) Description 10/30/2021 Telephone [facility] [address] [place] [phone] Vanessa Hart PA-C [address] [facility] [place] [address] Appointment Related Social History Tobacco Use Types [...] encounter Miscellaneous Notes * Telephone Encounter - Alton Murphy - 10/30/2021 0749 EDT Screening Questions prior to Med Release 1. Do you have a fever or have had a fever of 100.4 degrees F. in the last 24 hours? No 2. Are you taking any medication for a recent infection? No 3. Have you had a recent illness, or changes in your health since your last infusion? If so, is your ordering provider aware? No 4. Have you had a recent COVID vaccination or have one scheduled? If so, does your ordering provider aware? No 5. (for Remicade, Entyvio, Renflexis, Rituximab, Ocrevus, pts, 'mab' patients) Have you had any recent surgeries in the last month or have any planned in the near future? No documented in this encounter Plan of Treatment Not on file documented as of this encounter Visit Diagnoses Not on filedocumented in this encounter Care Teams Warehouse Receiver Relationship Specialty Start Date End Date Jennifer Smith MD PCP - General 06/17/16 documented as of this encounter
--- OUTSIDE RECORDS SUMMARY | 2024-02-10 17:39 | XMS_ITS | Encounter Summary ---
Author Organization [facility] Address [address] [place] [address] Care Team Providers Care Chiller Operator Name Role Phone Jennifer Smith MD Primary Care Provider [phone] Encounter Details Date Type Department Care Team (Late st Contact Info) Description 05/14/2021 Lab Requisition [facility] Pathology & Laboratory Medicine - [address] [address] Outr Resulting Lab, Provider Social History Tobacco [...] Comments ZZCOVID-19 TEST [facility] PCR Today 05/13/2021 13:30 EST COVID-19 TESTING Routine 05/13/2021 13:3 0 EST documented in this encounter Results * COVID-19 TEST [facility] PCR (05/13/2021 13:30 EST) Swab 05/13/2021 13:3 0 EST 05/14/2021 17:17 EST Provider Outr Resulting Lab MICROBIOLOGY - GENERAL ORDERABLES [facility] [address] [place] [address] * COVID-19 TESTING (05/13/2021 13:30 EST) COVID-19 rt-PCR Result Negative Negative 05/15/2021 15:39 EST [facility] Comment: This test has [...] clinical observations, patient history, and epidemiological information. This test was developed and its performance characteristics determined by [facility]. It has not been cleared or approved by the US Food and Drug Administration. FDA does not require this test to go through premarket FDA review. This test is used for clinical purposes. It should not be regarded as investigational or for research. This laboratory is certified under the Clinical Laboratory Improvement Amendments (CLIA) as qualified to perform high complexity clinical laboratory testing. This test is based on the [facility] COVID-19 Emergency Use Authorization (EUA) assay, with minor modification as defined by the FDA Performed on the Storieo 7 Flex RT-PCR System. Performing Lab [facility] Lab 05/15/2021 15:39 EST [facility] Swab 05/13/2021 13:3 0 EST 05/14/2021 17:17 EST Provider Outr Resulting Lab MICROBIOLOGY - GENERAL ORDERABLES [facility] [address] [place] [address] documented in this encounter Visit Diagnoses Not on filedocumented in this encounter Care Teams Chiller Operator Relationship Specialty Start Date End Date Jennifer Smith MD PCP - General 06/17/16 documented as of this encounter
--- OUTSIDE RECORDS SUMMARY | 2024-02-10 17:39 | XMS_ITS | Encounter Summary ---
Author Organization [facility] Address [address] [place] [address] Care Team Providers Care Casing Tester Name Role Phone Jennifer Smith MD Primary Care Provider [phone] Encounter Details Date Type Department Care Team (Late st Contact Info) Description 09/04/2017 Results Only [facility] [phone] Latrell Castro, DO [address] [place] [address] Social History Tobacco Use Types [...] Date/Time Associated Diagnosis Comments SURGICAL PATHOLOGY Routine 09/04/2017 6:46 EST documented in this encounter Results * SURGICAL PATHOLOGY (09/04/2017 6:46 EST) Pathology Report: SURGICAL PATHOLOGY REPORT Reports generated via electronic interface contain original data; however they are lacking the format of the original report. Caution should be taken when reading/interpret ing unformatted reports. Name: ? BHUMI VIDAL ? Accession #: ? [id number] ? : ? 1955 (Age: 62) ??F ? Collect Date: ? 09/04/2017 ? Location: ? [facility] ? Receive Date: ? 09/05/2017 ? Provider: LATRELL CASTRO DO Copy to: JENNIFER SMITH MD ? Final Pathologic Diagnosis: COLON, CECUM POLYP, ENDOSCOPIC POLYPECTOMY: - Hyperplastic polyp. ?? Document reviewed and electronically signed by: CHAO KATZ MD Report ??Date: 09/07/2017 18:27 By the signature above, the attending physician certifies that he/she has personally conducted a gross and/or microscopic examination of the described specimens and rendered or confirmed the above diagnosis. Specimen(s) Received: Cecal polyp Clinical History: Screening Gross Description: ? Received in formalin labelled with proper patient identification (initials L, A) and cecal polyp are two pink-moss tissues (0.2 x 0.1 x 0.1 cm and 0.7 x 0.3 x 0.2 cm). Entirely submitted in 1. SAMANTA Vega ([facility]) 09/07/2017 7:58 AM End of Report [facility] 09/04/2017 6:46 EST 09/05/2017 6:46 EST Latrell Castro DO PATHOLOGY ORDERABLES [facility] [address] [place] [address] documented in this encounter Visit Diagnoses Not on filedocumented in this encounter Care Teams Casing Tester Relationship Specialty Start Date End Date Jennifer Smith MD PCP - General 06/17/16 documented as of this encounter
--- OUTSIDE RECORDS SUMMARY | 2024-02-10 17:39 | XMS_ITS | Encounter Summary ---
Author Organization [facility] Address [address] [place] [address] Care Team Providers Care Sanding Machine Tender Name Role Phone Jennifer Smith MD Primary Care Provider [phone] Reason for Referral * Prior Authorization (48 Hrs (Urgent)) - Closed Specialty Diagnoses / Procedures Referred By Contevangelina t Referred To Contact Infusion Therapy Diagnoses Dog bite of right lower leg, initial encounter Vanessa Hart PA-C [address] [facility], [address] [place] [address] [facility] [address] [address] Referral ID Status Reason Start Date Expiration Date V isits Requested Visits Authorized [id number] Closed Specialty Services Required 10/17/2021 10/31/2021 2 2 Question Answer Is this appt for transfusion, medication, test or injection? Injection What type of injection? RabAvert Injection Dose 1 mL What is the injection frequency? Day 3, day 7 and day 14 Are labs to be obtained during the appt? No Does this have a lab dependency? This patient is not lab dependent Are preliminary tests complete (like MRI)? N/A Have orders been place for this appt? (i.e.: Blood Transfusion Order Set, Therapy Plan, Lab Orders, Supportive Plan, Etc) Yes Comments Your Follow-up appointments will be scheduled by the [facility] scheduling team. If you have not been scheduled within 36 hours from your initial vaccine, please contact [facility] at . Reason for Visit * Prior Authorization (48 Hrs (Urgent)) - Closed Specialty Diagnoses / Procedures Referred By Lisa pink Referred To Contact Infusion Therapy Diagnoses Dog bite of right lower leg, initial encounter Vanessa Hart PA-C [address] [facility] [place] [address] [facility] [address] [place] [address] Referral ID Status Reason Start Date Expiration Date V isits Requested Visits Authorized [id number] Closed Specialty Services Required 10/17/2021 10/31/2021 2 2 Encounter Details Date Type Department Care Team (Latest Contact Info) Description 10/19/2021 6:54 EDT - 10/19/2021 23:59 EDT Hospital Encounter [facility] [address] [place] [address] Dog bite of right lower leg, initial encounter Discharge Disposition: Home or Self Care Social [...] 15:04 EDT documented as of this encounter Medications at Time of Discharge Medication Sig Dispensed Refills Start Date End Date rabies vaccine, PCEC, (RABAVERT) 2.5 unit injection kit Inject 1 mL into the muscle once for 2 doses. Administer on 10/23/21 and 10/30/21. 2 mL 10/17/2021 documented as of this encounter Discharge Disposition Disposition Code Departure Means Destination Home or Self [facility] documented in this encounter Progress Notes * Zuri Strauss, RN - 10/19/2021 1045 EDT Bhumi Plasencia arrived to [facility] for RabAvert injection related to diagnosis code ofS81.851A, W54.0XXA. Identification verified verbally and on patient wristband. Action: 1 mL RabAvert IM injection administered at 1035. Patient tolerated. Patient discharged homeindependently. documented in this encounter ED Notes * Chadd Pennington RPH - 10/19/2021 1045 EDT Spoke with Mila at [facility] regarding patient's request to receive rabies series at [facility]. She recommended faxing a prescription for final two rabies vaccinations (due 10/23/21 and 10/30/21) to [phone]. Their office will reach out to patient to coordinate visits. Rx printed by Sandra Gar PA-C and faxed to number provided. Chadd Pennington, PharmShreya Pager [phone] documented in this encounter Plan of Treatment Scheduled Referrals Name Type Priority Associated Diagnoses Order Schedule AMB CONS/FOLLOW UP ([facility]) Outpatient Referral Routine/Next Available Dog Bite Of Right Lower Leg, Initial Encounter 1 Occurrences starting 10/19/2021 until 10/19/2021 documented as of this encounter Visit Diagnoses Diagnosis Dog bite of right lower leg, initial encounter documented in this encounter Care Teams Sanding Machine Tender Relationship Specialty Start Date End Date Jennifer Smith MD PCP - General 06/17/16 documented as of this encounter
--- OUTSIDE RECORDS SUMMARY | 2024-02-10 17:39 | XMS_ITS | Encounter Summary ---
Author Organization [facility] Address [address] [place] [address] Care Team Providers Care Veneer Grader Name Role Phone Jennifer Smith MD Primary Care Provider [phone] Reason for Visit * Prior Authorization (48 Hrs (Urgent)) - Closed Specialty Diagnoses / Procedures Referred By Contac t Referred To Contact Infusion Therapy Diagnoses Dog bite of right lower leg, initial encounter Vanessa Hart PA-C [address] [facility] [place] [address] [facility] [address] [place] [address] Referral ID Status Reason Start Date Expiration Date V isits Requested Visits Authorized [id number] Closed Specialty Services Required 10/17/2021 10/31/2021 2 2 Encounter Details Date Type Department Care Team (Latest Contact Info) Description 10/30/2021 7:48 EDT - 10/30/2021 23:59 EDT Hospital Encounter [facility] [address] [place] [address] Discharge Disposition: Home or Self Care Social [...] Code Departure Means Destination Home or Self Snf documented in this encounter Progress Notes * Sanjuanita Thrasher, RN - 10/30/2021 1230 EDT Patient,Bhumi Plasencia, admitted to the Infusion Center on [address] for #4(final) dose of Rabavert r/tICD: S81.851A, W54.0XXA. 1mL Rabavert administered in left deltoid, site wnl, bandaid applied. Pt discharged to home via ambulation. documented in this encounter Plan of Treatment Not on file documented as of this encounter Visit Diagnoses Not on filedocumented in this encounter Administered Medications Inactive Administered Medications - up to 3 most recent administrations Medication Order MAR Action Action Date Dose Rate Site rabies vaccine (PCEC) (RABAVERT) intramuscular injection 1 mL 1 mL, intramuscular, NOW X1, 1 dose, On Thu10/30/21 at 1230, Routine, Outpatient Infusion Given 10/30/2021 12:42 EDT 1 mL Left Deltoid documented in this encounter Orders Medications Ordered That Andrew ht Not Have Been Administered Count Last Ordered Date First Ordered Date rabies vaccine (PCEC) (RABAV ERT) intramuscular injection 1 mL 1 10/30/2021 documented in this encounter Care Teams Veneer Grader Relationship Specialty Start Date End Date Jennifer Smith MD PCP - General 06/17/16 documented as of this encounter
--- OUTSIDE RECORDS SUMMARY | 2024-02-10 17:39 | XMS_ITS | Encounter Summary ---
Author Organization [facility] Address [address] [place] [address] Care Team Providers Care Swimming Coach Name Role Phone Jennifer Smith MD Primary Care Provider [phone] Encounter Details Date Type Department Care Team (Late st Contact Info) Description 03/11/2023 Lab Requisition [facility] Pathology & Laboratory Medicine - [address] [address] Outr Resulting Lab, Provider Social History Tobacco [...] Date/Time Associated Diagnosis Comments LYME AB Routine 03/11/2023 10:24 EDT documented in this encounter Results * LYME AB (03/11/2023 10:24 EDT) Lyme Ab Negative Negative 03/12/2023 10:41 EDT [facility] Blood VENOUS BLOOD / Unknown 03/11/2023 10:24 EDT 03/11/2023 17:16 EDT Provider Outr Resulting Lab IMMUNOLOGY A ND SEROLOGY ORDERABLES [facility] [address] [place] [address] documented in this encounter Visit Diagnoses Not on filedocumented in this encounter Care Teams Swimming Coach Relationship Specialty Start Date End Date Jennifer Smith MD PCP - General 06/17/16 documented as of this encounter
--- OUTSIDE RECORDS SUMMARY | 2024-02-10 17:39 | XMS_ITS | Encounter Summary ---
Author Organization [facility] Address [address] [place] [address] Care Team Providers Care Office Auditor Name Role Phone Jennifer Smith MD Primary Care Provider [phone] Encounter Details Date Type Department Care Team (Latest Contact Info) Description 10/16/2021 Travel Social History Tobacco Use Types Packs/Day Years [...] 15:04 EDT documented as of this encounter Plan of Treatment Not on file documented as of this encounter Visit Diagnoses Not on filedocumented in this encounter Care Teams Office Auditor Relationship Specialty Start Date End Date Jennifer Smith MD PCP - General 06/17/16 documented as of this encounter
--- OUTSIDE RECORDS SUMMARY | 2024-02-10 17:39 | XMS_ITS | Encounter Summary ---
Author Organization [facility] Address [address] [place] [address] Care Team Providers Care Crushing Foreman Name Role Phone Jania Jones FIRE APPARATUS SPRINKLER INSPECTOR Primary Care Provider Devin somers Encounter Details Date Type Department Care Team (Late st Contact Info) Description 02/18/2012 Results Only [facility] Laboratory Services - [facility] ([facility] [address] [place] [address] Jania Jones, RORO Social History Tobacco Use Types Packs/Day Years Used Date Smoking Tobacco: Never Assessed Sex and Gender Information Value Date Recorded Sex Assigned at Not on file Gender Identity Female 10/16/2021 16:29 EDT Sexual Orientation Not on file documented as of this encounter Plan of Treatment Not on file documented as of this encounter Procedures Procedure Name Priority Date/Time Associated Diagnosis Comments PAP TEST- RESULT ONLY Routine 02/18/2012 0:00 EDT documented in this encounter Results * PAP TEST- RESULT ONLY (02/18/2012 0:00 EDT) Pathology Report: CYTOPATHOLOGY REPORT Reports generated via electronic interface contain original data; however they are lacking the format of the original report. Caution should be taken when reading/interpreti ng unformatted reports. Name: ? BHUMI VIDAL ? Accession #: ? [id number] ? : ? 1955 (Age: 56) ??F ?Collect Date: ? 02/18/2012 ? Location: ? [facility] ? Receive Date: ? 02/20/2012 ? Provider: JANIA JONES NP Copy to: ? Final Report SPECIMEN ADEQUACY ? Satisfactory for Evaluation - transformation zone component present GENERAL CATEGORIZATION ? Negative for Intraepithelial Lesion or Malignancy ?? Last Menstural Period: 07/2011 Specimen/Source: ??Pap Test, Cervix/Endocervix, ThinPrep Imaging System with manual evaluation Document reviewed and electronically signed by: ? Christine Blanton, [place](ASCP) ? Report ??Date: 02/26/2012 07:13 HPV with Pap Test ? Date Ordered: ? 02/26/2012 ? Status: ?? Signed Out ?Date Complete: ? 02/27/2012 ? By: ??System Interface ? Date Reported: ? 02/27/2012 ? Interpretation RESULT: Negative for HPV. No E6 or E7 mRNA is detected from HPV types 16,18,31,33,35, 39,45,51,52,56,58, 59,66, and 68 by stamping bench die maker mediated amplification. Comments Document reviewed and electronically signed by: ? System Interface ? Report date: 02/27/2012 By the signature above, the attending physician certifies that he/she has personally conducted a gross and/or microscopic examination of the described specimens and rendered or confirmed the above diagnosis. End of Report [facility] 02/18/2012 02/20/2012 Jania M Karen FIRE APPARATUS SPRINKLER INSPECTOR PATHOLOGY ORDERABLES [facility] [address] [place] [address] documented in this encounter Visit Diagnoses Not on filedocumented in this encounter Care Teams Crushing Foreman Relationship Specialty Start Date End Date Jania Jones, FIRE APPARATUS SPRINKLER INSPECTOR PCP - General 05/02/10 06/16/16 documented as of this encounter
--- OUTSIDE RECORDS SUMMARY | 2024-02-10 17:39 | XMS_ITS | Encounter Summary ---
Author Organization [facility] Address [address] [place] [address] Care Team Providers Care Puller Out Name Role Phone Unavailable Primary Care Provider Unavailabl e Encounter Details Date Type Department Care Team (Late st Contact Info) Description 02/16/[address] [facility] [address] [place] [address] Jania Jones, RORO Social History Tobacco Use [...] Procedure Name Priority Date/Time Associated Diagnosis Comments CYTOPATHOLOGY Routine 02/16/2007 0:00 EDT documented in this encounter Results * CYTOPATHOLOGY (02/16/2007 0:00 EDT) Pathology Report: CYTOPATHOLOGY REPORT Reports generated via electronic interface contain original data; however they are lacking the format of the original report. Caution should be taken when reading/interpreti ng unformatted reports. Name: ? BHUMI VIDAL ? Accession #: ? [id number] : ? 1955 (Age: 51) ??F ?Collect Date: ? 02/16/2007 Location: ? [facility] ? Receive Date: ? 02/17/2007 Provider: ?JANIA JONES NP Copy to: ? Specimen/Source: ?ThinPrep Pap Test, Cervix/Endocervix, processed on [employer] ThinPrep Imaging System, with manual evaluation Last Menstrual Period: ? 02/01/07 Other: ? HPVA - HPV testing requested if ASC-US on the current ThinPrep Pap test. ? SPECIMEN ADEQUACY ? Satisfactory for Evaluation - transformation zone component present GENERAL CATEGORIZATION ? Negative for Intraepithelial Lesion or Malignancy ? Document reviewed and electronically signed by: ? KAREN Osorio(ASCP) ? Report Date: ??02/23/2007 13:06 End of Report [facility] 02/16/2007 02/17/2007 Jania Jones NP PATHOLOGY ORDERABLES [facility] [address] [place] [address] documented in this encounter Visit Diagnoses Not on filedocumented in this encounter
--- OUTSIDE RECORDS SUMMARY | 2024-02-10 17:39 | XMS_ITS | Encounter Summary ---
Author Organization [facility] Address [address] [place] [address] Care Team Providers Care Hand Crown Pouncer Name Role Phone Jennifer Smith MD Primary Care Provider [phone] Reason for Referral * Prior Authorization (48 Hrs (Urgent)) - Closed Specialty Diagnoses / Procedures Referred By Contevangelina t Referred To Contact Infusion Therapy Diagnoses Dog bite of right lower leg, initial encounter Vanessa Hart PA-C [address] [facility], [address] [place] [address] [facility] [address] [address] Referral ID Status Reason Start Date Expiration Date V isits Requested Visits Authorized [id number] Closed Specialty Services Required 10/17/2021 10/31/2021 2 [...] Follow-up appointments will be scheduled by the [facility] scheduling team. If you have not been scheduled within 36 hours from your initial vaccine, please contact [facility] at . Reason for Visit * Reason Comments Animal Bite Was outside on a [place] when a dog came up and bit behind her right knee. Pt already reported bite to [facility] health officer. Unsure of dogs vaccination status. Pt is UTD on her vaccines. Edges of wound not approximated, bleeding controlled. Encounter Details Date Type Department Care Team (Late st Contact Info) Description 10/16/2021 16:06 EDT - 10/16/2021 19:09 EDT Emergency [facility] Emergency Department - [address] [address] Vanessa Hart PA-C [address] [place] [address], [address] [place] [id number] Dog bite of right lower leg, initial encounter (Primary Dx) Discharge Disposition: Home or Self Care Social [...] 15:04 EDT documented as of this encounter Last Filed Vital Signs Vital Sign Reading [...] Body Mass Index 25.06 10/16/2021 1459 EDT documented in this encounter Discharge Instructions * Discharge Instructions* Vanessa Hart PA-C - 10/16/2021 18:59 EDT You were seen in the emergency department for dog bite. The wound was closed loosely to help reapproximate the edges, but likely discussed this could increase the risk of an infection. Take antibiotics twice a day for 3 days. If the wound becomes very red, swollen, or there is any pus drainage come back immediately and have the stitches taken out. Stitches need to be removed in 7 days. Starting tomorrow take the dressing down and wash the wound with soap and water, apply a clean dry dressing daily. Your tetanus was updated today. You were given rabies vaccine and immunoglobulin today. This is a series of vaccines injections that will need to be completed on day 3, 7, and 14. Someone from the hospital will contact you to set up an time to come in for these. If any increased pain, swelling, or drainage from the wound please come back to the emergency department immediately. * Attachments The following attachments cannot be sent through Care Everywhere. * Bites: Animal (Namibian) documented in this encounter Medications at Time of Discharge Medication Sig Dispensed Refills Start Date End Date rabies vaccine, PCEC, (RABAVERT) 2.5 unit injection kit Inject 1 mL into the muscle once for 2 doses. Administer on 10/23/21 and 10/30/21. 2 mL 10/17/2021 documented as of this encounter Ordered Prescriptions Prescription Sig Dispensed Refills Start Date End Da te rabies vaccine, PCEC, (RABAVERT) 2.5 unit injection kit Inject 1 mL into the muscle once for 2 doses. Administer on 10/23/21 and 10/30/21. 2 mL 10/17/2021 documented in this encounter Discharge Disposition Disposition Code Departure Means Destination Home or Self [facility] documented in this encounter ED Notes * Rosalie Whitley RN - 10/16/2021 1908 EDT Pt discharged by [facility]ANTA and ambulatory out of dept. Unable to obtain VS. Discussed s/s warranting a return to the ED. Pt denies further questions about rabies follow up. * Rosalie Whitley RN - 10/16/2021 1758 EDT Bacitracin and band-aid applied to wound. * Vanessa Hart PA-C - 10/16/2021 1731 EDTAssociated Order(s): Laceration Repair This patient received an evaluation and medical screening exam for emergent medical conditions at the [facility] on 10/16/2021 Dr. Escobar was available as the supervising attending. Chief Complaint Animal bite HPI Bhumi Plasencia is a 66 y.o. female who is otherwise well who presents to the ED for animal bite on right leg. Just prior to arrival patient was taking a walk in her neighborhood, a dog that was sitting on the porch of a home came out and bit the back of her right leg. States that the dog is medium size, Labrador retriever. She does not know this dog. She states it was very color but she does not know if it was wearing tags. When she contacted animal control for the [facility] they stated that there was no dog on record to belong to that house. The dog is at large. Last tetanus is unknown. History was provided by: patient Patient's pertinent PMH, FH, SH were reviewed and updated PRN. ROS A 10 point review of systems has been performed and is otherwise negative except as noted in the HPI. Physical Exam Vital Signs Temp: 36.5 ??C (97.7 ??F) Temp src: Oral Pulse: 50 Resp: 17 SpO2: 100 % BP: (!) 168/82 BP Device: BP Machine BP Patient Position: Sitting BP Cuff Location: Right arm O2 Device: None (Room air) Nursing notes and vital signs were reviewed. Constitutional: Well appearing, well nourished and in no acute distress Skin: Posterior right lower leg there is laceration that is approximately 3 cm in length, partial thickness, venous oozing, edged not well-approximated. There are several puncture wounds adjacent to the wound. Extremities: Moving spontaneously, warm and well perfused. No lower extremity edema. Neuro: Grossly neurologically intact with normal speech, alert and oriented. Psych: No agitation or overt thought disorder. Laboratory Results Labs Reviewed - No data to display Data Interpretation Imaging obtained was reviewed and independently interpreted: Imaging Results None Procedures Laceration Repair Date/Time: 10/16/2021 18:18 Performed by: Vanessa Hart PA-C Authorized by: Vanessa Hart PA-C Consent: Consent obtained: Verbal Consent given by: Patient Risks discussed: Infection, poor cosmetic result and retained foreign body Alternatives discussed: No treatment Anesthesia (see MAR for exact dosages): Anesthesia method: Local infiltration Local anesthetic: Lidocaine 1% WITH epi Laceration details: Location: Leg Leg location: R lower leg Length (cm): 3 Repair type: Repair type: Simple Pre-procedure details: Preparation: Patient was prepped and draped in usual sterile fashion Exploration: Wound exploration: wound explored through full range of motion and entire depth of wound probed andvisualized Wound extent: no foreign bodies/material noted Treatment: Area cleansed with: Saline and Betadine Irrigation solution: Sterile saline Irrigation volume: 250 cc Irrigation method: Syringe Visualized foreign bodies/material removed: no Skin repair: Repair method: Sutures Suture size: 5-0 Suture material: Nylon Suture technique: Simple interrupted Number of sutures: 3 Approximation: Approximation: Loose Post-procedure details: Dressing: Antibiotic ointment Patient tolerance of procedure: Tolerated well, no immediate complications ED Course/Medical Decision Making A medical screening was performed. This is a 66 y.o. female with no contributory medical history who presents to the emergency department with dog bite on posterior right lower leg. Wound is somewhat gaping, continuous oozing. Discussed risks and benefits of partial closure as this would help with bleeding and scarring, though we did discuss the increased use of infection with closing this wound. Patient would like to partially close it. Wound was irrigated copiously with saline by myself. 3 loose sutures were placed without close closure. Patient tolerated this well. Signs and symptoms of infection were discussed and patient will return immediately if any of these develop. Denies we discussed risks and benefits of rabies pos texposure prophylaxis, patient would like to proceed with this. Her tetanus was also updated. While under my care in the Emergency Department, the patient's pain was managed to an adequate level weighing risk vs. benefit of medication. Clinical Impression Final diagnoses: Dog bite of right lower leg, initial encounter Disposition Discharged The patient's pain was managed to an adequate level weighing risk vs. benefit of further medications. Any further pain treatment will be at the discretion of the provider following up with the patient based on their clinical assessment. * Chip Callahan RN - 10/16/2021 1617 EDT Patient states UTD with Td * Laura Fonseca RN - 10/16/2021 1503 EDT Chief Complaint Patient presents with ??? Animal Bite Was outside on a walk when a dog came up and bit behind her right knee. Pt already reported bite [facility] health officer. Unsure of dogs vaccination status. Pt is UTD on her vaccines. Edgesof wound not approximated, bleeding controlled. documented in this encounter Plan of Treatment Scheduled Referrals Name Type Priority Associated Diagnoses Order Schedule AMB CONS/FOLLOW UP (SHEP 4 INFUSIONS) Outpatient Referral Routine/Next Available Dog Bite Of Right Lower Leg, Initial Encounter Expected: 10/19/2021 (Approximate), Expires: 10/16/2022 documented as of this encounter Procedures Procedure Name Priority Date/Time Associated Diagnosis Comments ED LACERATION REPAIR Routine 10/16/2021 18:18 EDT ED LACERATION REPAIR Routine 10/16/2021 18:18 EDT documented in this encounter Results * DC SMPL REPAIR SCALP/NECK/AX/GENIT/TRUNK 2.6-7.5CM, HC - SMPL REPAIR SCALP/NECK/AX/GENIT/TRUNK 2.6-7.5CM (10/16/2021 18:18 EDT) Narrative [facility] EKG - 10/16/2021 18:18 EDT Vanessa Hart PA-C ? 10/16/2021 20:08 Laceration Repair Date/Time: 10/16/2021 18:18 Performed by: Vanessa Hart PA-C Authorized by: Vanessa Hart PA-C Consent: ??Consent obtained: ??Verbal ??Consent given by: ??Patient ??Risks discussed: ??Infection, poor cosmetic result and retained foreign body ??Alternatives discussed: ??No treatment Anesthesia (see MAR for exact dosages): ??Anesthesia method: ??Local infiltration ??Local anesthetic: ??Lidocaine 1% WITH epi Laceration details: ??Location: ??Leg ??Leg location: ??R lower leg ??Length (cm): ??3 Repair type: ??Repair type: ??Simple Pre-procedure details: ??Preparation: ??Patient was prepped and draped in usual sterile fashion Exploration: ??Wound exploration: wound explored through full range of motion and entire depth of wound probed and visualized ?Wound extent: no foreign bodies/material noted ?? Treatment: ??Area cleansed with: ??Saline and Betadine ??Irrigation solution: ??Sterile saline ??Irrigation volume: ??250 cc ??Irrigation method: ??Syringe ??Visualized foreign bodies/material removed: no ?? Skin repair: ??Repair method: ??Sutures ??Suture size: ??5-0 ??Suture material: ??Nylon ??Suture technique: ??Simple interrupted ??Number of sutures: ??3 Approximation: ??Approximation: ??Loose Post-procedure details: ??Dressing: ??Antibiotic ointment ??Patient tolerance of procedure: ??Tolerated well, no immediate complications Vanessa Hart PA-C PROCEDURE/MINOR SURGICAL ORDERABLES [facility] EKG documented in this encounter Visit Diagnoses Diagnosis Dog bite of right lower leg, initial encounter- Primary documented in this encounter Administered Medications Inactive Administered Medications - up to 3 most recent administrations Medication Order MAR Action Action Date Dose Rate Site rabies immune globulin (PF) (HYPERAB) 300 unit/mL injection 540 Units 540 Units, intramuscular, NOW X1, 1 dose, On Thu10/16/21 at 1830, Routine Given 10/16/2021 18:49 EDT 540 Units rabies immune globulin (PF) (HYPERAB) 300 unit/mL injection 900 Units 900 Units, intramuscular, NOW X1, 1 dose, On Thu10/16/21 at 1830, Routine Given 10/16/2021 18:41 EDT 900 Units documented in this encounter Active and Recently Administered Medications Times are shown in EDT. Scheduled Medication Order 10/14/2021 10/15/2021 10/16/2021 rabies immune globulin (PF) (HYPERAB) 300 unit/mL injection 540 Units (COMPLETED)(Linked Group 1) 540 Units, intramuscular, NOW X1, 1 dose, On Thu10/16/21 at 1830, Routine 1849 (Given - Provid er: Rosalie Whitley RN) rabies immune globulin (PF) (HYPERAB) 300 unit/mL injection 900 Units (COMPLETED)(Linked Group 1) 900 Units, intramuscular, NOW X1, 1 dose, On Thu10/16/21 at 1830, Routine 1841 (Given - Provid er: Rosalie Whitley RN) Linked Groups Order Group 1: rabies immune globulin (PF) (HYPERAB) 300 unit/mL injection 900 Units (COMPLETED)Jump to med 900 Units, intramuscular, NOW X1, 1 dose, On Thu10/16/21 at 1830, Routine And rabies immune globulin (PF) (HYPERAB) 300 unit/mL injection 540 Units (COMPLETED)Jump to med 540 Units, intramuscular, NOW X1, 1 dose, On Thu10/16/21 at 1830, Routine documented in this encounter Orders Medications Ordered That Andrew ht Not Have Been Administered Count Last Ordered Date First Ordered Date rabies immune globulin (PF) (HYPERAB) 300 unit/mL injection 1,440 Units 1 10/16/2021 documented in this encounter Care Teams Hand Crown Pouncer Relationship Specialty Start Date End Date Jennifer Smith MD PCP - General 06/17/16 documented as of this encounter
--- OUTSIDE RECORDS SUMMARY | 2024-02-10 17:39 | XMS_ITS | Encounter Summary ---
Author Organization [facility] Address [address] [place] [address] Care Team Providers Care Water Technician Name Role Phone Jennifer Smith MD Primary Care Provider [phone] Encounter Details Date Type Department Care Team (Late st Contact Info) Description 07/01/2022 Lab Requisition [facility] Pathology & Laboratory Medicine - [address] [address] Viktoria Manzo MD [facility] [place] [id number] Encounter for other general examination Social History Tobacco Use Types Packs/Day Years [...] Name Priority Date/Time Associated Diagnosis Comments PAP TEST Today 06/26/2022 13:35 EST Encounter for other general examination HPV DNA DETECTION WITH GENOTYPING, PCR Today 06/26/2022 13:35 EST Encounter for other general examination documented in this encounter Results * HUMAN PAPILLOMAVIRUS (HPV) DETECTION-HIGH RISK TYPES (06/26/2022 13:35 EST) HPV other High Risk types, PCR Negative Negative 07/10/2022 15:44 [facility] Comment:No E6 or E7 mRNA is detected from HPV types 16,18,31,33,35,39,45,51,52,56,58,59,66, and 68 by promotions representative mediated amplification. Papanicolaou smear specimen (specimen) CERVIX UTERI STRUCTURE / Unknown 06/26/2022 13:35 EST 07/09/2022 11:29 EST Viktoria Manzo MD MICROBIOLOGY - GENER AL ORDERABLES [facility] [address] [place] [address] * PAP TEST (06/26/2022 13:35 EST) Specimens A. Cervix and/or Endocervix , ThinPrep Imaging System with Manual Evaluation 07/10/2022 15:44 [facility] Specimen Adequacy Satisfactory for Evaluation - transformation zone component present Scant squamous epithelial component, contamination present, possibly lubricant 07/10/2022 15:44 [facility] General Categorization Negative for intraepithelial lesion or malignancy 07/10/2022 15:44 [facility] Attestation . 07/10/2022 15:44 [facility] at 1544 Clinical History See below 07/10/19 23 15:44 [facility] HPV The result for the Human Papillomavirus (HPV) Detection-High Risk Types is Negative. No E6 or E7 mRNA is detected from HPV types 16,18,31,33,35,39 ,45,51,52,56,58,5 9,66, and 68 by promotions representative mediated amplification.Carol ting was performed on specimen [id number] and was resulted on 07/10/2022 1544 EST by SAMARA, LAB INSTRUMENT RESULTS IN 07/10/2022 15:44 [facility] Performing Lab [facility] 07/10/2022 15:44 [facility] Scanned Images 07/10/2022 15:44 EST [facility] Papanicolaou smear specimen (specimen) CERVIX UTERI STRUCTURE / Unknown 06/26/2022 13:35 EST 07/01/2022 14:42 EST Viktoria Manzo MD PATHOLOGY ORDERABLES Performing Organization Address City/State/[facility] Co de Phone Number [facility] [address] [place] [address] documented in this encounter Visit Diagnoses Diagnosis Encounter for other general examination documented in this encounter Care Teams Water Technician Relationship Specialty Start Date End Date Jennifer Smith MD PCP - General 06/17/16 documented as of this encounter
--- OUTSIDE RECORDS SUMMARY | 2024-02-10 17:39 | XMS_ITS | Encounter Summary ---
Author Organization [facility] Address [address] [place] [address] Care Team Providers Care Tennis Centre Manager Name Role Phone Jennifer Smith MD Primary Care Provider [phone] Encounter Details Date Type Department Care Team (Late st Contact Info) Description 02/01/2020 Lab Requisition [facility] Pathology & Laboratory Medicine - [address] [id number] Outr Resulting Lab, Provider Social History Tobacco [...] Procedure Name Priority Date/Time Associated Diagnosis Comments MEASLES IGG AB Routine 01/31/2020 16:14 EDT RUBELLA IGG ANTIBODY Routine 01/31/2020 16:14 EDT HEPATITIS B SURFACE ANTIBODY Routine 01/31/2020 16:14 EDT MUMPS ANTIBODY IGG Routine 01/31/2020 16 :14 EDT documented in this encounter Results * HEPATITIS B SURFACE ANTIBODY (01/31/2020 16:14 EDT) Hep B Surface Ab, Quantitative <3.1 See Note mIU/mL 02/02/2020 10:17 EDT [facility] Comment: Reference Range for Hep B Surface Ab, Quant: Positive: >= 10.0 mIU/mL Negative: ??< 10.0 mIU/mL Patient is presumed to not be immune to infection with Hepatitis B Virus. Hep B Surface Ab, Qualitative Negative See Note 02/02/2020 10:17 EDT [facility] Comment: Reference Range for Hep B Surface Ab, Qual: Unvaccinated: ??Negative Vaccinated: ??Positive Blood VENOUS BLOOD / Unknown 01/31/2020 16:14 EDT 02/01/2020 15:53 EDT Provider Outr Resulting Lab CHEMISTRY & BLOOD GAS ORDERABLES Performing Organization Address [facility] Co de Phone Number [facility] [address] [place] [phone] * MEASLES IGG AB (01/31/2020 16:14 EDT) Measles IgG Ab Positive See Note 02/02/2020 10:10 EDT [facility] Comment:Presence of detectab le measles virus IgG antibodies. Blood VENOUS BLOOD / Unknown 01/31/2020 16:14 EDT 02/01/2020 15:53 EDT Provider Outr Resulting Lab IMMUNOLOGY A ND SEROLOGY ORDERABLES Performing Organization Address [facility] Co de Phone Number [facility] [address] [place] [address] * MUMPS ANTIBODY IGG (01/31/2020 16:14 EDT) Mumps Antibody IgG Positive See Note 02/02/2020 10:11 EDT [facility] Comment:Presence of detectab le mumps virus IgG antibodies. Blood VENOUS BLOOD / Unknown 01/31/2020 16:14 EDT 02/01/2020 15:53 EDT Provider Outr Resulting Lab IMMUNOLOGY A ND SEROLOGY ORDERABLES Performing Organization Address [facility] Co de Phone Number [facility] [address] [place] [address] * RUBELLA IGG ANTIBODY (01/31/2020 16:14 EDT) Rubella IgG Ab Positive See Note 02/02/2020 10:13 EDT [facility] Comment:Positive for IgG ant ibodies to Rubella virus. Blood VENOUS BLOOD / Unknown 01/31/2020 16:14 EDT 02/01/2020 15:53 EDT Provider Outr Resulting Lab CHEMISTRY & BLOOD GAS ORDERABLES [facility] [address] [place] [address] documented in this encounter Visit Diagnoses Not on filedocumented in this encounter Care Teams Tennis Centre Manager Relationship Specialty Start Date End Date Jennifer Smith MD PCP - General 06/17/16 documented as of this encounter
--- OUTSIDE RECORDS SUMMARY | 2024-02-10 17:39 | XMS_ITS | Encounter Summary ---
Author Organization [facility] Address [address] [place] [address] Care Team Providers Care Gaming Cage Worker Name Role Phone Jennifer Smith MD Primary Care Provider [phone] Encounter Details Date Type Department Care Team (Late st Contact Info) Description 08/28/2021 Lab Requisition [facility] Pathology & Laboratory Medicine - [address] [address] Outr Resulting Lab, Provider Social History Tobacco [...] Comments ZZCOVID-19 TEST [facility] PCR Today 08/28/2021 10:58 EST COVID-19 TESTING Routine 08/28/2021 10:5 8 EST documented in this encounter Results * COVID-19 TEST [facility] PCR (08/28/2021 10:58 EST) Swab 08/28/2021 10:5 8 EST 08/28/2021 16:29 EST Provider Outr Resulting Lab MICROBIOLOGY - GENERAL ORDERABLES [facility] [address] [place] [address] * COVID-19 TESTING (08/28/2021 10:58 EST) COVID-19 rt-PCR Result Negative Negative 08/28/2021 19:23 EST [facility] Comment: This test has [...] history, and epidemiological information. Performed on the [employer] Fusion instrument Performing Lab [facility] 08/28/2021 19:23 EST [facility] Swab 08/28/2021 10:5 8 EST 08/28/2021 16:29 EST Provider Outr Resulting Lab MICROBIOLOGY - GENERAL ORDERABLES [facility] [address] [place] [address] documented in this encounter Visit Diagnoses Not on filedocumented in this encounter Care Teams Gaming Cage Worker Relationship Specialty Start Date End Date Jennifer Smith MD PCP - General 06/17/16 documented as of this encounter
--- OUTSIDE RECORDS SUMMARY | 2024-02-10 17:39 | XMS_ITS | Encounter Summary ---
Author Organization [facility] Address [address] [place] [address] Care Team Providers Care Button Sewer Hand Name Role Phone Jania Jones FOOD CROPS FARM HAND Primary Care Provider Devin somers Encounter Details Date Type Department Care Team (Latest Contact Info) Description 06/12/2016 7:37 EST - 06/12/2016 23:59 EST Hospital Encounter [address] [address] Unknown, Provider, Discharge Disposition: Home or Self Care Social History Tobacco Use Types Packs/Day Years Used Date Smoking Tobacco: Never Assessed Sex and Gender Information Value Date Recorded Sex Assigned at Not on file Gender Identity Female 10/16/2021 16:29 EDT Sexual Orientation Not on file documented as of this encounter Discharge Disposition Disposition Code Departure Means Destination Home or Self Penitentiary documented in this encounter Plan of Treatment Not on file documented as of this encounter Visit Diagnoses Not on filedocumented in this encounter Care Teams Button Sewer Hand Relationship Specialty Start Date End Date Janai Jones FOOD CROPS FARM HAND PCP - General 05/02/10 06/16/16 documented as of this encounter
--- OUTSIDE RECORDS SUMMARY | 2024-02-10 17:40 | XMS_ITS | Encounter Summary ---
Author Organization [facility] [place] [address] Care Team Providers Care Grass Farmer Name Role Phone Jennifer Smith MD Primary Care Provider Reason for Referral * Consultation (Routine) - Closed Specialty Diagnoses / Procedures Referred By Lisa t Referred To Contact Dermatology Diagnoses Disorder of skin Jennifer Smith MD [facility] [address] [place] [address] [facility] Dermatology [address] [place] [address] Referral ID Status Reason Start Date Expiration Date V isits Requested Visits Authorized [id number] Closed Consult, Test & Treat PCP Updated and/or Approved 04/05/2022 04/05/2023 6 6 Encounter Details Date Type Department Care Team (Late st Contact Info) Description 04/05/2022 Transcribe Orders eDH Incoming Referrals [phone] Jennifer Smith MD [address] [place], [place] [id number] Disorder of skin Social History Tobacco Use Types Packs/Day Years Used Date Smoking Tobacco: Never Assessed Sex and Gender Information Value Date Recorded Sex Assigned at Not on file Gender Identity Not on file Sexual Orientation Not on file documented as of this encounter Plan of Treatment Scheduled Referrals Name Type Priority Associated Diagnoses Order Schedule Referral to Dermatology Outpatient Referral Routine Disorder of skin Ordered: 04/05/2022 documented as of this encounter Visit Diagnoses Diagnosis Disorder of skin Unspecified disorder of skin and subcutaneous tissue documented in this encounter Care Teams Grass Farmer Relationship Specialty Start Date End Date Jennifer Smith MD [address] [place] [address] PCP - General 05/28/10 documented as of this encounter
--- OUTSIDE RECORDS SUMMARY | 2024-02-10 17:40 | XMS_ITS | Encounter Summary ---
Author Organization [facility] Address [address] [place] [address] Care Team Providers Care Linux Systems Analyst Name Role Phone Jania Jones BOILER MAKER Primary Care Provider Devin somers Encounter Details Date Type Department Care Team (Late st Contact Info) Description 12/15/2005 Results Only [facility] [place] - [place] conversion [address] [place] [address] Jania Jones, RORO Social History Tobacco Use [...] Priority Date/Time Associated Diagnosis Comments CYTOPATHOLOGY Routine 12/15/2005 0:00 EDT documented in this encounter Results * CYTOPATHOLOGY (12/15/2005 0:00 EDT) Pathology Report: CYTOPATHOLOGY REPORT Reports generated via electronic interface contain original data; however they are lacking the format of the original report. Caution should be taken when reading/interpreti ng unformatted reports. Name: ? BHUMI VIDAL ? Accession #: ? [id number] : ? 1955 (Age: 50) ??F ?Collect Date: ? 12/15/2005 Location: ? [facility] ? Receive Date: ? 12/16/2005 Provider: ?JANIA JONES BOILER MAKER Copy to: ? Specimen/Source: ?ThinPrep Pap Test, Cervix/Endocervix, processed on [employer] ThinPrep Imaging System, with manual evaluation Last Menstrual Period: ? 12/10/05 Other: ? HPVA - HPV testing requested if ASC-US on the current ThinPrep Pap test. ? SPECIMEN ADEQUACY ? Satisfactory for Evaluation - transformation zone component present GENERAL CATEGORIZATION ? Epithelial Cell Abnormality INTERPRETATION ? Squamous Cell Abnormality - Atypical squamous cells, undetermined significance. Endometrial cells present in a women equal to or greater than age 40. EDUCATIONAL NOTES/RECOMMENDATI ONS ? [facility] recommends following the 2001 Consensus Guidelines for the Management of Women with Cervical Cytological Abnormalities (JUSTUS,2002;287:212 0-9). Management algorithms have been distributed by [facility] and are available online at www.ASCCP.org. Benign appearing endometrial cells on Pap tests are usually a normal finding in women with regular menstrual cycles, especially if the Pap test was collected during the first half of the menstrual cycle. There is data showing that endometrial cells on Pap tests may be associated with endometrial/uterin e abnormalities in post menopausal women or in perimenopausal women with abnormal bleeding. There is limited data on the significance of benign endometrial cells in post menopausal women on HRT. ??Clinical correlation is recommended. Note: ??The Pap test is not an accurate test for the screening of endometrial lesions and should not be used as a follow up in patients with clinical suspicion of endometrial pathology. ? Document reviewed and electronically signed by: ? [facility] ? Report Date: ??12/23/2005 13:48 End of Report [facility] 12/15/2005 12/16/2005 Jania Jones NP PATHOLOGY ORDERABLES Performing Organization Address City/State/[facility] [place] [address] documented in this encounter Visit Diagnoses Not on filedocumented in this encounter Care Teams Linux Systems Analyst Relationship Specialty Start Date End Date Jania Jones, BOILER MAKER PCP - General 05/02/10 06/16/16 documented as of this encounter
--- OUTSIDE RECORDS SUMMARY | 2024-02-10 17:40 | XMS_ITS | Encounter Summary ---
Author Organization [facility] [place] [address] Care Team Providers Care Investigator Name Role Phone Jennifer Smith MD Primary Care Provider Encounter Details Date Type Department Care Team (Late st Contact Info) Description 06/05/2020 Orders [place] [address] Kira Pool APRN [facility] [place] [address] Breast pain Social History Tobacco Use Types Packs/Day Years Used Date Smoking Tobacco: Never Assessed Sex and Gender Information Value Date Recorded Sex Assigned at Not on file Gender Identity Not on file Sexual Orientation Not on file documented as of this encounter Plan of Treatment Not on file documented as of this encounter Visit Diagnoses Diagnosis Breast pain Mastodynia documented in this encounter Care Teams Investigator Relationship Specialty Start Date End Date Jennifer Smith MD [address] [place] [address] [address] [place] [address] PCP - General 05/28/10 documented as of this encounter
--- OUTSIDE RECORDS SUMMARY | 2024-02-10 17:40 | XMS_ITS | Encounter Summary ---
Author Organization [facility] [place] [address] Care Team Providers Care Inbound Sales Manager Name Role Phone Jennifer Smith MD Primary Care Provider Reason for Visit * Consultation (Routine) - Closed Specialty Diagnoses / Procedures Referred By Lisa pink Referred To Contact Dermatology Diagnoses Disorder of skin Jennifer Smith MD [address] [place] [address] [address] [facility] [address] [place] [address] [facility] Dermatology [address] [place] [address] Referral ID Status Reason Start Date Expiration Date V isits Requested Visits Authorized [id number] Closed Consult, Test & Treat PCP Updated and/or Approved 04/05/2022 04/05/2023 6 6 Encounter Details Date Type Department Care Team (Late st Contact Info) Description 07/09/2022 2:00 PM EST Office Visit Dermatology at [facility] [address] [place] [id number] Alvin Walton MD [facility] [address] [place] [address] Actinic keratoses; Seborrheic keratoses, inflamed; Seborrheic keratoses; Kemp angioma Social History Tobacco Use Types Packs/Day Years Used Date Smoking Tobacco: Never Assessed Sex and Gender Information Value Date Recorded Sex Assigned at Not on file Gender Identity Not on file Sexual Orientation Not on file documented as of this encounter Progress Notes * Alvin Walton MD - 07/09/2022 2:00 PM EST Images from the original note were not included. DEPARTMENT OF DERMATOLOGY Medical Dermatology Clinic Note Provider: Alvin Walton MD Patient's preferred name Bhumi Preferred contact method for results []Phone []myD-H []Letter Detailed phone message OK? No Are there any other people with whom we may discuss your care? Yes Past Medical History Date, location, treatment Melanoma Dysplastic nevi SCC BCC AKs Yes - LN2 UV Exposure & Protection Other relevant past medical history Family History Details Melanoma NMSC Other relevant family history Social History Occupation: Hobbies: Other: Pre-Procedure Questions Details Allergy to lidocaine, epinephrine, Dermabond, chlorhexidine, or adhesives Bleeding disorder or blood thinners Implanted devices (Pacemaker, defibrillator, deep brain stimulator, cochlear implant) History of Present Illness: Bhumi Agee is a 67 y.o. Patient is referred to the clinic at the request of Jennifer Smith for an evaluation of spots of concerns today. Review of Systems: General: Feeling well. Skin: No other skin concerns. Medications: Reviewed in eD-H Allergies: Reviewed in eD-H Skin Examination: Focused skin examination of the face, upper back, bilateral arms was normal with the exception of the findings below. Assessment/Plan #. Actinic Keratosis - Ill-defined gritty papule on the left upper back. - Explained premalignant potential of these lesions. - Discussed treatment with cryotherapy. Patient elects to proceed with cryotherapy today. - Instructed patient to return to clinic for re-evaluation if lesion(s) does not resolve as expected with this treatment. Procedure: Destruction of lesion(s) with cryotherapy (LN2). Location(s): As noted above. Number: 1 Discussed procedure and expectations, including risks and benefits. Verbal consent obtained. Treated with LN2. There were no complications; Patient tolerated the procedure well. Post-procedure expectations and wound care reviewed. #. Inflamed Seborrheic Keratosis - Inflamed, stuck on, waxy papule on the left cheek. - Discussed benign nature of lesion(s) and provided reassurance. - Due to irritation present on today's exam and history of symptoms, discussed removal with cryotherapy. - Patient elects to proceed with cryotherapy today. Procedure: Destruction of lesion(s) with cryotherapy (LN2). Location(s): As noted above Number: 1 Discussed procedure and expectations including risks and benefits. Verbal consent obtained. Treatedwith LN2. There were no complications; Patient tolerated the procedure well. Post-procedure expectations and wound care were reviewed. #. Seborrheic Keratoses - Stuck on, waxy papules on the left lower eyelid, bilateral arms. - Discussed benign nature of lesions and provided reassurance. No treatment necessary at this time. #. Kemp Angiomas - Multiple bright red, well-demarcated papules on the right abdomen. - Discussed benign nature of lesions and provided reassurance. No treatment necessary at this time. Other: ??? N/A RTC: PRN Scribe attestation: LAI Baltazar has performed the documentation for this encounter in the presence of and acting as a scribe for Alvin Walton MD. I performed the above scribed service and agree with the accuracy of the documentation in this encounter. Reviewed and signed by: Alvin Walton MD Dermatology [facility] Patient seen and evaluated with staff broke man: Sandra Sánchez MD Department of Dermatology [facility] * Sandra Sánchez MD - 07/09/2022 2:00 PM EST I directly supervised the resident during this office visit. The resident physician presented the history and physical exam to me. I then saw and examined this patient with the resident. We reviewed the history and pertinent details and I confirmed the physical exam findings. I agree with the details of the history and physical exam as documented in the resident physician's note. Sandra Sánchez MD Staff Physician [facility] Dermatology documented in this encounter Plan of Treatment Scheduled Referrals Name Type Priority Associated Diagnoses Order Schedule Referral to Dermatology Outpatient Referral Routine Disorder of skin Ordered: 04/05/2022 documented as of this encounter Visit Diagnoses Diagnosis Actinic keratoses Actinic keratosis Seborrheic keratoses, inflamed Seborrheic keratoses Kemp angioma Nevus, non-neoplastic documented in this encounter Care Teams Inbound Sales Manager Relationship Specialty Start Date End Date Jennifer Smith MD [address] [place] [address] PCP - General 05/28/10 documented as of this encounter
--- OUTSIDE RECORDS SUMMARY | 2024-02-10 17:40 | XMS_ITS | Encounter Summary ---
[place] [address] Care Team Providers Care Roving Inspector Name Role Phone Jennifer Smith MD Primary Care Provider [phone] Encounter Details Date Type Department Care Team (Late st Contact Info) Description 03/12/2016 12:50 PM EDT - 03/12/2016 11:59 PM EDT Hospital [place] [address] Jennifer Smith MD [facility] [address] [address] Visit for screening mammogram Discharge Disposition: Home Social History Tobacco Use Types Packs/Day Years Used Date Smoking Tobacco: Never Assessed Sex and Gender Information Value Date Recorded Sex Assigned at Not on file Gender Identity Not on file Sexual Orientation Not on file documented as of this encounter Medications at Time of Discharge Medication Sig Dispensed Refills Start Date End Date OXYCODONE HCL/ACETAMINOPHEN (PERCOCET ORAL) 07/19/2009 07/17/2020 gabapentin (NEURONTIN) 300 mg capsule 07/17/2020 gabapentin (NEURONTIN) 300 mg capsule 07/17/2020 diaZEPam (VALIUM) 5 mg tablet 07/19/2009 07/17/2020 ibuprofen (ADVIL;MOTRIN) 200 mg tablet 07/17/2020 multivitamin (THERAGRAN) tablet 0 07/17/2020 documented as of this encounter Plan of Treatment Not on file documented as of this encounter Procedures Procedure Name Priority Date/Time Associated Diagnosis Comments MAMMO SCREENING CAD AND WALI BILATERAL Routine 03/12/2016 1:23 PM EDT Visit for screening mammogram documented in this encounter Results * Mammo Screen CAD and Wali Bilat (Generic) (03/12/2016 1:23 PM EDT) Anatomical Region Laterality Modality Breast Bilateral Mammography Narrative 03/13/2016 9:56 AM EDT BILATERAL MAMMOGRAPHY REASON FOR EXAM: Screening TECHNIQUE: CC and MLO views were obtained of each breast using standard 2-D mammography as well as 3-D tomosynthesis. Computer aided detection was used. This is compared with prior images. FINDINGS: ??The breasts are almost entirely fatty. There are no suspicious microcalcifications, masses, or areas of distortion. The pattern is stable. CONCLUSION: No mammographic evidence of malignancy. RECOMMENDATION: The [place] [employer] and The Society of Breast Imaging recommend annual screening beginning at age 40 for the general female population. Screening should continue as long as a woman is in good health and is expected to live 10 more years or longer. All women should be familiar with the known benefits, limitations, and potential harms linked to breast cancer screening. They should also know how their breasts normally look and feel and report any breast changes to a health care provider right away. Some women - because of their family history, a genetic tendency, or certain other factors - should be screened with MRIs along with mammograms. (The number of women who fall into this category is very small.) The patient and health care provider should discuss the patient history and decide if earlier screening and breast MRI are appropriate. A result letter has been sent to this patient by the [facility]. BIRADS CATEGORY 1: NEGATIVE Jennifer Smith MD [facility]G MAMMO ORDERABLES documented in this encounter Visit Diagnoses Diagnosis Visit for screening mammogram Other screening mammogram documented in this encounter Care Teams Roving Inspector Relationship Specialty Start Date End Date Jennifer Smith MD [address] [place] [address] PCP - General 05/28/10 documented as of this encounter
--- OUTSIDE RECORDS SUMMARY | 2024-02-10 17:40 | XMS_ITS | Encounter Summary ---
Author Organization [facility] Address [address] [place] [address] Care Team Providers Care Customer Professional Name Role Phone Unavailable Primary Care Provider Unavailabl e Encounter Details Date Type Department Care Team (Late st Contact Info) Description 08/13/2004 Results Only [facility] [place] conversion [address] [place] [address] [place] [address] Social History Tobacco Use Types Packs/Day Years Used Date Smoking Tobacco: Never Assessed Sex and Gender Information Value Date Recorded Sex Assigned at Not on file Gender Identity Female 10/16/2021 16:29 EDT Sexual Orientation Not on file documented as of this encounter Plan of Treatment Not on file documented as of this encounter Procedures Procedure Name Priority Date/Time Associated Diagnosis Comments CYTOPATHOLOGY Routine 08/13/2004 0:00 EST documented in this encounter Results * CYTOPATHOLOGY (08/13/2004 0:00 EST) Pathology Report: CYTOPATHOLOGY REPORT Reports generated via electronic interface contain original data; however they are lacking the format of the original report. Caution should be taken when reading/interpreti ng unformatted reports. Name: ? BHUMI VIDAL ? Accession #: ? [id number] : ? 1955 (Age: 49) ??F ?Collect Date: ? 08/13/2004 Location: ? [facility] ? Receive Date: ? 08/14/2004 Provider: ?LEXI PAIGE CNM Copy to: ? Specimen/Source: ?ThinPrep Pap Test, Cervix/Endocervix Last Menstrual Period: ? 07/24/04 Other: ? HPVA - HPV testing requested if ASC-US on the current ThinPrep Pap test. ? SPECIMEN ADEQUACY ? Satisfactory for Evaluation - transformation zone component present GENERAL CATEGORIZATION ? Negative for Intraepithelial Lesion or Malignancy ? Document reviewed and electronically signed by: ? Lexi Carmona, SCT(ASCP) ? Report Date: ??08/20/2004 09:50 End of Report [facility] 08/13/2004 08/14/2004 Lexi Paige CNM PATHOLOGY ORDERABLES [facility] [address] [place] [address] documented in this encounter Visit Diagnoses Not on filedocumented in this encounter
--- OUTSIDE RECORDS SUMMARY | 2024-02-10 17:40 | XMS_ITS | Encounter Summary ---
Author Organization [facility] [facility] [place] [address] Care Team Providers Care Jewel Bearing Polisher Name Role Phone Jennifer Smith MD Primary Care Provider [phone] Encounter Details Date Type Department Care Team (Latest Contact Info) Description 07/09/2022 Travel Social History Tobacco Use Types Packs/Day Years Used Date Smoking Tobacco: Never Assessed Sex and Gender Information Value Date Recorded Sex Assigned at Not on file Gender Identity Not on file Sexual Orientation Not on file documented as of this encounter Plan of Treatment Not on file documented as of this encounter Visit Diagnoses Not on filedocumented in this encounter Care Teams Jewel Bearing Polisher Relationship Specialty Start Date End Date Jennifer Smith MD [address] [place] [address] PCP - General 05/28/10 documented as of this encounter
--- OUTSIDE RECORDS SUMMARY | 2024-02-10 17:40 | XMS_ITS | Encounter Summary ---
[place] [address] Care Team Providers Care Bulb Grower Name Role Phone Jennifer Smith MD Primary Care Provider [phone] Encounter Details Date Type Department Care Team (Late st Contact Info) Description 07/22/2018 Ancillary Procedure [place] [address] Jennifer Smith MD [address] [place] [address] [address] [place] [address] Social History Tobacco Use Types Packs/Day Years Used Date Smoking Tobacco: Never Assessed Sex and Gender Information Value Date Recorded Sex Assigned at Not on file Gender Identity Not on file Sexual Orientation Not on file documented as of this encounter Plan of Treatment Not on file documented as of this encounter Procedures Procedure Name Priority Date/Time Associated Diagnosis Comments FILM LIBRARY STORAGE ONLY MAMMO Routine 07/22/2018 12:00 AM EST documented in this encounter Results * Film Library- Storage Only Mammo (07/22/2018 12:00 AM EST) Narrative RAD - 06/13/2020 9:51 AM EST This exam is auto-finalizing. It's purpose is for storage only. Jennifer Smith MD [facility] FILM LIBRARY ORD ERABLES [facility] [place], [place] documented in this encounter Visit Diagnoses Not on filedocumented in this encounter Care Teams Bulb Grower Relationship Specialty Start Date End Date Jennifer Smith MD [address] [facility] [address] [place] [address] PCP - General 05/28/10 documented as of this encounter
--- OUTSIDE RECORDS SUMMARY | 2024-02-10 17:40 | XMS_ITS | Encounter Summary ---
Author Organization [facility] Address [facility] [place] [address] Care Team Providers Care Drywall Finishing Foreman Name Role Phone Jennifer Smith MD Primary Care Provider [phone] Encounter Details Date Type Department Care Team (Late st Contact Info) Description 08/08/2009 Interpretation Only Radiology [address] [place] [id number] Unknown None Social History Tobacco Use Types Packs/Day Years Used Date Smoking Tobacco: Never Assessed Sex and Gender Information Value Date Recorded Sex Assigned at Not on file Gender Identity Not on file Sexual Orientation Not on file documented as of this encounter Plan of Treatment Not on file documented as of this encounter Procedures Procedure Name Priority Date/Time Associated Diagnosis Comments XR FLUORO MORE THAN ONE HOUR Routine 08/08/2009 8:00 AM EST documented in this encounter Results * XR FLUORO MORE THAN ONE HOUR (08/08/2009 8:00 AM EST) Anatomical Region Laterality Modality Other 08/08/2009 8:00 AM EST Narrative 08/08/2009 8:00 AM EST APD Historical Result Principal Finish Machine Tender: ??MALLORY ??JUAREZ C-ARM: FINDINGS: Fluoroscopy was provided for Dr. Mancini for lumbar spine intervention. ??No radiologist was present. ??Three intraoperative spot images were submitted. ??On the initial image, a radiopaque instrument projects in the posterior soft tissues at the level of L5-S1. ??On the 2nd and 3rd images, which appear to be duplicate images, there are radiopaque instruments projecting in the soft tissues centered at the L4-5 level. ??There is disc space narrowing at L5-S1. ??There is no acute fracture. ??Please refer to separate intraoperative report. Total fluoro time equals 5.3 seconds. Mallory Juarez MD [place] [id number] CC: Procedure Note Unknown - 01/03/2019 APD Historical Result Principal Finish Machine Tender: MALLORY JUAREZ C-ARM: FINDINGS: Fluoroscopy was provided for Dr. Mancini for lumbar spineintervention. No radiologist was present. Three intraoperative spot images were submitted. On theinitial image, a radiopaque instrument projects in the posterior soft tissues at the level of L5-S1.On the 2nd and 3rd images, which appear to be duplicate images, there are radiopaqueinstruments projecting in the soft tissues centered at the L4-5 level. There is disc space narrowing atL5-S1. There is no acute fracture. Please refer to separate intraoperative report. Total fluoro time equals 5.3 seconds. Mallory Juarez MD [place] [id number] CC: Unknown PACS IMAGES documented in this encounter Visit Diagnoses Not on filedocumented in this encounter Care Teams Drywall Finishing Foreman Relationship Specialty Start Date End Date Jennifer Smith MD [address] [place] [address] PCP - General 05/28/10 documented as of this encounter
--- OUTSIDE RECORDS SUMMARY | 2024-02-10 17:40 | XMS_ITS | Encounter Summary ---
Author Organization [facility] [place] [address] Care Team Providers Care Track Welder Name Role Phone Jennifer Smith MD Primary Care Provider [phone] Encounter Details Date Type Department Care Team (Latest Contact Info) Description 06/19/2020 9:40 AM EST - 06/19/2020 11:59 PM [facility] Hospital [place] [address] Kira Pool [address]N [facility] [place] [address] Breast pain Discharge Disposition: Home Social History Tobacco Use Types Packs/Day Years Used Date Smoking Tobacco: Never Assessed Sex and Gender Information Value Date Recorded Sex Assigned at Not on file Gender Identity Not on file Sexual Orientation Not on file documented as of this encounter Medications at Time of Discharge Medication Sig Dispensed Refills Start Date End Date Cyanocobalamin 2,500 mcg Tablet, Sublingual DIS 1 T UNT D 03/13/2020 doxycycline (VIBRAMYCIN) 100 mg Capsule 04/24/2020 ergocalciferoL, vitamin D2, (vitamin D2) 50,000 unit Capsule TK 1 CAPSULE THREE TIMES WEEKLY 04/27/2020 OXYCODONE HCL/ACETAMINOPHEN (PERCOCET ORAL) 07/19/2009 07/17/2020 gabapentin (NEURONTIN) 300 mg capsule 07/19/2009 07/17/2020 gabapentin (NEURONTIN) 300 mg capsule 07/19/2009 07/17/2020 diaZEPam (VALIUM) 5 mg tablet 07/19/2009 07/17/2020 ibuprofen (ADVIL;MOTRIN) 200 mg tablet 07/19/2009 07/17/2020 multivitamin (THERAGRAN) tablet 07/19/2009 07/17/2020 documented as of this encounter Plan of Treatment Not on file documented as of this encounter Procedures Procedure Name Priority Date/Time Associated Diagnosis Comments MAMMO DIAGNOSTIC CAD AND WALI LEFT Routine 06/19/2020 10:14 AM EST Breast pain documented in this encounter Results * Mammo Diagnostic Cad and Wali Left (06/19/2020 10:14 AM EST) Anatomical Region Laterality Modality Breast Left Mammography Impressions 06/19/2020 10:25 AM EST No mammographic evidence of malignancy. Recommendation: Clinical follow-up and Routine annual screening BI-RADS Category 1: Negative I have personally reviewed the image(s) and the resident's interpretation and agree with the findings, Zaria Bravo MD at 06/19/2020 10:25 AM Thank you for letting us participate in the care of this patient. For questions regarding this report, please contact the number below. ? Narrative 06/19/2020 10:25 AM EST EXAMINATION: MAMMO DIAGNOSTIC CAD AND WALI LEFT CLINICAL HISTORY: left breast pain TECHNIQUE: CC and MLO views were obtained of the left breast. Computer aided detection was used. COMPARISON: Multiple prior images. FINDINGS: The breasts are almost entirely fatty. ??No suspicious masses, microcalcifications, or areas of distortion. ??The pattern is stable. Kira Pool APRN IMG MAMMO ORD ERABLES documented in this encounter Visit Diagnoses Diagnosis Breast pain Mastodynia documented in this encounter Care Teams Track Welder Relationship Specialty Start Date End Date Jennifer Smith MD [address] [place] [address] PCP - General 05/28/10 documented as of this encounter
--- OUTSIDE RECORDS SUMMARY | 2024-02-10 17:40 | XMS_ITS | Encounter Summary ---
Author Organization [facility] [place] [address] Care Team Providers Care Pollution Control Chemist Name Role Phone Jennifer Smith MD Primary Care Provider Reason for Visit * Consultation (Routine) - Closed Specialty Diagnoses / Procedures Referred By Contevangelina t Referred To Contact Dermatology Diagnoses Disorder of the skin and subcutaneous tissue, unspecified Multiple Skin Lesions; Est. Patient-Notes Received Procedures Consult Jennifer Smith MD [address] [place] [address] [facility] [address] [place] [address] Dino Mayorga MD [address] [place] [address], [facility] [place] [address] Referral ID Status Reason Start Date Expiration Date V isits Requested Visits Authorized [id number] Closed Consult, Test & Treat PCP Updated and/or Approved 06/06/2020 06/06/2021 6 6 Encounter Details Date Type Department Care Team (Late st Contact Info) Description 07/17/2020 3:30 PM EST Office Visit Dermatology at [address] [phone] Dino Mayorga MD [address] [place] [address], [facility] [place] [address] Nevus Social History Tobacco Use Types Packs/Day Years Used Date Smoking Tobacco: Never Assessed Sex and Gender Information Value Date Recorded Sex Assigned at Not on file Gender Identity Not on file Sexual Orientation Not on file documented as of this encounter Progress Notes * Dino Mayorga MD - 07/17/2020 3:30 PM EST Problem: Left breast discomfort Bhumi is a 65-year-old woman who states that for 36 years she has had problems with intermittent breast discomfort that comes and goes. Over the last 18 months she has been experiencing an increased frequency of these. She might have none for a month or 2 and then have several in short order. She describes this as being a tingling sensation a burning lasting for very short time and then resolving.It can come on spontaneously when she is watching TV or when she is active. It can occur winter andsummer with no predilection. She has had an extensive work-up with at breast clinic visit at [facility], multiple mammograms and fortunately everything has come back benign. 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 She wanted to have a brake liner look at the skinand be sure there is no cutaneous explanation for her symptoms. Her PCP Jennifer Smith is suggested exercises to help her trapezius muscle. Physical examination reveals a pleasant 65-year-old who has 2 symmetric breasts with everted normalnipples and symmetric and equally sized areola. There is no discoloration nor erythema. There is nopeau d'orange change in the skin. There are no clinical findings cutaneously that would offer an explanation to her long history of intermittent breast discomfort. She has an 8mm unremarkable seborrhe ic keratosis her right lateral breast. Assessment plan: Left breast discomfort, longstanding 1. Patient denies any cervical or thoracic spinal arthritis/arthralgias 2. Agree with Dr. Jennifer Smith's suggestion for trapezius strengthening exercises and I also mentioned the option of acupuncture to see if that might help this problem. 3. I see no clinical dermatologic findings that would lead me to explain or understand the cause for her symptoms. 4. Return to clinic here as needed. Patient is reassured that there are no dermatologic findings and this reduces her level of concern greatly. CC: Jennifer Smith MD documented in this encounter Plan of Treatment Not on file documented as of this encounter Visit Diagnoses Diagnosis Nevus Benign neoplasm of skin, site unspecified documented in this encounter Care Teams Pollution Control Chemist Relationship Specialty Start Date End Date Jennifer Smith MD [address] [place] [address] PCP - General 05/28/10 documented as of this encounter
--- OUTSIDE RECORDS SUMMARY | 2024-02-10 17:40 | XMS_ITS | Encounter Summary ---
Author Organization [facility] Address [address] [place] [address] Care Team Providers Care Fisheries Technician Name Role Phone Unavailable Primary Care Provider Unavailabl e Encounter Details Date Type Department Care Team (Latest Contact Info) Description 12/15/2005 20:06 EDT Hospital Encounter [facility] - [facility] [address] [place] [address] Jania Jones, SOLUTION ENGINEER Discharge Disposition: Auto Discharge Social History Tobacco Use Types Packs/Day Years Used Date Smoking Tobacco: Never Assessed Sex and Gender Information Value Date Recorded Sex Assigned at Not on file Gender Identity Female 10/16/2021 16:29 EDT Sexual Orientation Not on file documented as of this encounter Discharge Disposition Disposition Code Departure Means Destination Auto Discharge documented in this encounter Plan of Treatment Pending Results Name Type Priority Associated Diagnoses Date /Time CYTOPATHOLOGY Pathology Routine 06/13/2009 0:00 EST CYTOPATHOLOGY Pathology Routine 06/13/2009 0:00 EST Scheduled Orders Name Type Priority Associated Diagnoses Orde r Schedule CYTOPATHOLOGY Pathology Routine For medicat ions that can be administered at any time during the hospitalization for visit such as immunizations. for 1 Occurrences starting 06/14/2009 CYTOPATHOLOGY Pathology Routine For medicat ions that can be administered at any time during the hospitalization for visit such as immunizations. for 1 Occurrences starting 06/14/2009 documented as of this encounter Procedures Procedure Name Priority Date/Time Associated Diagnosis Comments HPV DETECTION, HIGH RISK TYPES Routine 06/13/2009 13:19 EST CYTOPATHOLOGY Routine 06/13/2009 0:00 EST HPV DETECTION, HIGH RISK TYPES Routine 12/15/2005 15:10 EDT documented in this encounter Results * HUMAN PAPILLOMA VIRUS DNA TEST (06/13/2009 13:19 EST) Specimen Description Cervix, ThinPrep vial [facility] Result Negative for HPV types 16, 18, 31, 33, 35, 39, 45, 51, 52, 56, 58, 59, and 68. [facility] Report Status Final 06/21/2009 [facility] 06/13/2009 13:1 9 EST 06/18/2009 13:19 EST Jania Jones NP MICROBIOLOGY - GENER AL ORDERABLES Performing Organization Address City/State/[facility] Co de Phone Number [facility] [address] [place] [address] * CYTOPATHOLOGY (06/13/2009 0:00 EST) Pathology Report: CYTOPATHOLOGY REPORT ? Reports generated via electronic interface contain original data; ? however they are lacking the format of the original report. ? Caution should be taken when reading/interpreti ng unformatted reports. ? Name: ? BHUMI VIDAL ? Accession #: ? [id number] ? : ? 1955 (Age: 54) ??F ?Collect Date: ? 06/13/2009 ? Location: ? [facility] ? Receive Date: ? 06/14/2009 ? Provider: ?JANIA M ALFRED SOLUTION ENGINEER ? Copy to: ? Specimen/Source: ?Pap Test, Cervix/Endocervix, ThinPrep Imaging System ? with manual evaluation ? Last Menstrual Period: ? 10/22/09 ? Hormonal/Contracep tive Status: ? Tubal ligation ? Other: ? HPVDX - HPV testing requested regardless of diagnosis on current ThinPrep Pap ?? test. ? SPECIMEN ADEQUACY ? Satisfactory for Evaluation ? - transformation zone component present ? GENERAL CATEGORIZATION ? Negative for Intraepithelial Lesion or Malignancy ? Document reviewed and electronically signed by: ? Lexi Carmona, SCT(ASCP) ? Report Date: ??06/15/2009 16:41 ? End of Report ? [facility] 06/13/2009 06/14/2009 Jania Jonse NP PATHOLOGY ORDERABLES Performing Organization Address [facility] de Phone Number [facility] [address] [place] [address] * HUMAN PAPILLOMA VIRUS DNA TEST (12/15/2005 15:10 EDT) Specimen Description Cervix, ThinPrep vial [facility] Result Negative for HPV types 16, 18, 31, 33, 35, 39, 45, 51, 52, 56, 58, 59, and 68. [facility] Report Status Final [id number] [facility] 12/15/2005 15:1 0 EDT 12/24/2005 9:11 EDT Jania Jones NP MICROBIOLOGY - GENER AL ORDERABLES Performing Organization Address [facility] de Phone Number [facility] [address] [place] [address] documented in this encounter Visit Diagnoses Not on filedocumented in this encounter
--- OUTSIDE RECORDS SUMMARY | 2024-02-10 17:40 | XMS_ITS | Encounter Summary ---
Author Organization [facility] Address [address] [place] [address] Care Team Providers Care Kier Boiler Name Role Phone Unavailable Primary Care Provider Unavailabl e Encounter Details Date Type Department Care Team (Late st Contact Info) Description 09/15/2000 Results Only [facility] conversion [address] [place] [address] [place], [place] [address] Social History Tobacco Use Types Packs/Day Years Used Date Smoking Tobacco: Never Assessed Sex and Gender Information Value Date Recorded Sex Assigned at Not on file Gender Identity Female 10/16/2021 16:29 EDT Sexual Orientation Not on file documented as of this encounter Plan of Treatment Not on file documented as of this encounter Procedures Procedure Name Priority Date/Time Associated Diagnosis Comments CYTOPATHOLOGY Routine 09/15/2000 0:00 EST documented in this encounter Results * CYTOPATHOLOGY (09/15/2000 0:00 EST) Pathology Report: CYTOPATHOLOGY REPORT Reports generated via electronic interface contain original data; however they are lacking the format of the original report. Caution should be taken when reading/interpreti ng unformatted reports. Name: ? BHUMI VIDAL ? Accession #: ? [id number] : ? 1955 (Age: 45) ??F ?Collect Date: ? 09/15/2000 Location: ? [facility] ? Receive Date: ? 09/17/2000 Provider: ?LEXI PAIGE CNM Copy to: ? Specimen/Source: ?ThinPrep Pap Test, Cervix/Endocervix Last Menstrual Period: ? 09/12/00 ? SPECIMEN ADEQUACY ? Satisfactory for evaluation but limited by scant squamous epithelial component secondary to excessive blood. GENERAL CATEGORIZATION ? Within Normal Limits ? Document reviewed and electronically signed by: ? Krysta Mccracken, KAREN(ASCP) ? Report Date: ??09/18/2000 09:25 End of Report [facility] 09/15/2000 09/17/2000 Lexi Paige CNM PATHOLOGY ORDERABLES [facility] [address] [place] [address] documented in this encounter Visit Diagnoses Not on filedocumented in this encounter
--- OUTSIDE RECORDS SUMMARY | 2024-02-10 17:40 | XMS_ITS | Encounter Summary ---
Author Organization [facility] [place] [address] Care Team Providers Care Envelope Stamping Machine Operator Name Role Phone Jennifer Smith MD Primary Care Provider Encounter Details Date Type Department Care Team (Latest Contact Info) Description 07/08/2022 Travel Social History Tobacco Use Types Packs/Day Years Used Date Smoking Tobacco: Never Assessed Sex and Gender Information Value Date Recorded Sex Assigned at Not on file Gender Identity Not on file Sexual Orientation Not on file documented as of this encounter Plan of Treatment Not on file documented as of this encounter Visit Diagnoses Not on filedocumented in this encounter Care Teams Envelope Stamping Machine Operator Relationship Specialty Start Date End Date Jennifer Smith MD [address] [place] [address] PCP - General 05/28/10 documented as of this encounter
--- OUTSIDE RECORDS SUMMARY | 2024-02-10 17:40 | XMS_ITS | Clinical Summary ---
Author Organization [facility] [place] [address] Care Team Providers Care Office Machine Mechanic Name Role Phone Jennifer Smith MD Primary Care Provider [phone] Allergies Active Allergy Reactions Criticality Noted Date Comments Sulfamethoxazole-Trimethoprim Medium CIS - Rash Medications Medication Sig Dispensed Refills Start Date End Date Status Cyanocobalamin 2,500 mcg Tablet, Sublingual DIS 1 T UNT D 03/13/2020 Active doxycycline (VIBRAMYCIN) 100 mg Capsule 04/24/2020 Active ergocalciferoL, vitamin D2, (vitamin D2) 50,000 unit Capsule TK 1 CAPSULE THREE TIMES WEEKLY 04/27/2020 Active Immunizations Name Administration Dates Next Due TD Adult 08/01/2004 Family History Medical History Relation Comments Breast Cancer Maternal Aunt Relation Status Comments Maternal Aunt Social History Tobacco Use Types Packs/Day Years Used Date Smoking Tobacco: Never Assessed Sex and Gender Information Value Date Recorded Sex Assigned at Not on file Gender Identity Not on file Sexual Orientation Not on file Plan of Treatment Health Maintenance Due Date Last Done Comments CT Colonography 1955 Colonoscopy 1955 Colorectal Cancer Screening 1955 FIT DNA 1955 FIT 1955 Sigmoidoscopy (10 year) with FIT yearly 1955 Sigmoidoscopy 1955 Hepatitis C Screening 1973 Tdap adult 1974 Breast Cancer Share Decision Needed 1995 Zoster vaccine (1 of 2) 2005 Advance Directive 2010 Tetanus vaccine 08/01/2014 08/01/2004 Breast Cancer screening 03/12/2018 03/12/2016, 09/25 Bone Density Scan 2020 Pneumoccocal Vaccine: 65+ (1 of 1 - PCV) 2020 Covid-19 Vaccine (1 - 2022-24 season) 2023 Influenza (Flu) vaccine (1 o f 1 - Influenza standard series) 03/06/2024 Procedures Procedure Name Priority Date/Time Associated Diagnosis Comments MAMMO SCREENING CAD AND WALI BILATERAL Routine 03/12/2016 1:23 PM EDT Visit for screening mammogram from Last 3 Months or Most Recently Relevant to Health Maintenance Results * Mammo Screen CAD and Wali [...] No mammographic evidence of malignancy. RECOMMENDATION: [employer] Society of [...] NEGATIVE Jennifer Smith MD IMG MAMMO ORDERABLES from Last 3 Months or Most Recently Relevant to Health Maintenance Care Teams Office Machine Mechanic Relationship Specialty Start Date End Date Jennifer Smith MD [address] [place] [address] [address] [place], [place] [id number] PCP - General 05/28/10
--- OUTSIDE RECORDS SUMMARY | 2024-02-10 17:40 | XMS_ITS | Encounter Summary ---
Author Organization [facility] [place] [address] Care Team Providers Care Splicer Machine Operator Name Role Phone Jennifer Smith MD Primary Care Provider [phone] Encounter Details Date Type Department Care Team (Late st Contact Info) Description 06/19/2020 8:30 AM EST Office Visit [place] [address] Kira Pool APRN [facility] [place] [address] Breast pain, left Social History Tobacco Use Types Packs/Day Years Used Date Smoking Tobacco: Never Assessed Sex and Gender Information Value Date Recorded Sex Assigned at Not on file Gender Identity Not on file Sexual Orientation Not on file documented as of this encounter Progress Notes * Kira Pool APRN - 06/19/2020 8:30 AM EST Images from the original note were not included. Patient ID: Bhumi Agee is a 65 y.o. female who is seen at the request of Jennifer Smith MD forevaluation of a left breast pain. HPI: Bhumi saw her PCP on 05/08/2020 for an annual physical exam. At that time, she reported left breast pain. A review of that note indicates she used to have pain in her left breast once or twice a year, but now it is occurring more frequently and is intense. She had breast cysts when she was younger. At today's visit, Bhumi reports a long-standing history of breast pain, always on the left, dating back 30+ years. In July 2018, she experienced itching of the left nipple, without any skin changes, that eventually subsided. In January 2020, while bending forward to remove her bra, she experienced an acute stabbing pain ~ 12:00 in the left breast that radiated from the upper breast toward the nippl e. At the same time, her left nipple was extremely irritated and sensitive, but again without any lumps or skin changes. This happened a few times, but eventually dissipated. Now, she has transient stabbing pain, but not to the extent she experienced over the summer. She describes it as pulsating like little needles and the breast is mildly tender to palpation. She also notes transient itching over the left scapula and left occiput, mainly at night, and has an appointment with Dermatology. Bhumi denies new breast masses, breast trauma, or prior breast surgery. No nipple discharge or pain in either breast. She denies any headaches or significant weight changes. No new chest pain or difficulty breathing. No new bony pain or tenderness. Recent weight is stable. She has no new or concerning complaints of fatigue, cardiovascular, or respiratory symptoms. All other ROS are negative. Imaging performed: bilateral mammogram at [facility] on 03/13/22 was interpreted as BI- RADS Category 1 withscattered areas of fibroglandular densities. She is scheduled for diagnostic breast imaging later today. She does have a history of cystic breast tissue, but has not had cysts aspirated or breast biopsies in the past. She does perform self-breast exams. 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 She has never smoked; ETOH - infrequent Past Medical Hx: Noncontributory. Past Surgical Hx: Noncontributory Physical Exam: General appearance: Alert, well-appearing, well-developed female in no acute distress. Skin: Warm and dry. Head: Normocephalic, atraumatic Neck: Soft and supple without masses or adenopathy. Cardiovascular: Normal rate, regular rhythm and normal heart sounds. No murmur heard. Pulmonary: Effort normal and breath sounds normal. No respiratory distress, cough, or wheezing. Breasts: Both breasts appear normal. There is mild bilateral tenderness to deep palpation, but no suspicious masses, dimpling, erythema, or other skin changes in either breast. No nipple discharge orother nipple changes. No palpable axillary lymph nodes bilaterally. The patient's breasts are largeand generally symmetric. The nipples are everted. I feel no obvious discrete or dominant masses in either breast. Musculoskeletal: Full ROM in upper extremities without lymphedema. Neurological: Alert and oriented x 4. Mood is euthymic and appropriate to the situation. Assessment: Clinical breast exam without notable masses, skin changes, dimpling, or nipple discharge. Plan: 1. Breast pain, left - Mammo Diagnostic CAD and Wali, Bilateral - today - US Breast Limited, left - today We discussed possible outcomes of diagnostic imaging to include completely benign imaging, Category3 imaging, or the need for biopsy. I discussed the significance of Category 3 imaging. I explained that approximately 98% of the time what the radiologist is seeing is benign but prefers to perform interval imaging rather than no further imaging or to wait a year. It is frequently suggested that most women with Category 3 imaging undergo interval imaging (usually every 6 months) for a period of 1-2 years to insure stability of what is being seen. Eventually Category 3 imaging gets downgraded toCategory 1 or 2, and less often gets upgraded to a Category 4. I suggested she follow radiology recommendations a this time. Surgical follow up will be based on outcome of imaging. I then discussed nonpharmacologic measures that she can take to decrease her risk of developing breast cancer, to include the following: ?? Get at least 30 minutes of moderate intensity physical activity above normal activity on most days of the week to reduce the risk of chronic disease in adulthood. Walking is a good choice. You also may want to do other activities, such as running, swimming, cycling, or playing tennis or team sports. ?? Do strength training exercises at least twice a week to maintain muscle and bone health. ?? Drink alcohol in moderation, if at all. That means no more than 1 drink a day for women or 2 perday for men. ?? Make healthy eating choices: fruits and vegetables, lean protein, and healthy fats. Minimize simple carbohydrates, sugars, and processed foods. ?? Normal BMI < 25 for individuals under 65 years old; 22-30 for > 65 years old. ?? Be cautious about exposure risk, both what you put in and on your body (ie: artificial fragrances, artificial dyes, as well as certain ingredients in makeup, hair and body care, antiperspirant, laundry detergent, fabric softener, dryer sheets, etc.). The nations ban over 1,300 ingredients from personal care products. Unfortunately, the [place] only bans 30 products. An manasa to help make healthier choices for personal care products is available at [employer] All questions were answered to the patient's satisfaction and they state understanding and agreement with today's treatment plan. They are encouraged to follow up if symptoms worsen or fail to improve as expected, or if they develop other concerning symptoms. Kira Pool APRN Surgical Oncology P [phone] F [phone] [facility] documented in this encounter Plan of Treatment Not on file documented as of this encounter Visit Diagnoses Diagnosis Breast pain, left Mastodynia documented in this encounter Care Teams Splicer Machine Operator Relationship Specialty Start Date End Date Jennifer Smith MD [address] [facility] [address] [place] [address] PCP - General 05/28/10 documented as of this encounter
--- OUTSIDE RECORDS SUMMARY | 2024-02-10 17:40 | XMS_ITS | Encounter Summary ---
[place] [address] Care Team Providers Care Foil Spinner Name Role Phone Jennifer Smith MD Primary Care Provider Encounter Details Date Type Department Care Team (Late st Contact Info) Description 03/13/2020 Ancillary Procedure [place] [address] Jennifer Smith MD [address] [place] [address] [address] [place] [address] Social History Tobacco Use Types Packs/Day Years [...] Comments FILM LIBRARY STORAGE ONLY MAMMO Routine 03/13/2020 12:00 AM EDT documented in this encounter Results * Film Library- Storage Only Mammo (03/13/2020 12:00 AM EDT) Narrative [facility] - 06/13/2020 9:50 AM EST This exam is auto-finalizing. It's purpose is for storage only. Jennifer Smith MD [facility] [place] ER[place] documented in this encounter Visit Diagnoses Not on filedocumented in this encounter Care Teams Foil Spinner Relationship Specialty Start Date End Date Jennifer Smith MD [address] [place] [address] PCP - General 05/28/10 documented as of this encounter
--- OUTSIDE RECORDS SUMMARY | 2024-02-10 17:40 | XMS_ITS | Encounter Summary ---
[place] [address] Care Team Providers Care Digital Learning Platforms Manager Name Role Phone Jennifer Smith MD Primary Care Provider [phone] Encounter Details Date Type Department Care Team (Late st Contact Info) Description 09/26/2011 12:26 PM EDT - 09/26/2011 11:59 PM EDT Hospital [place] [address] CLINIC, Jennifer Richard MD [address] [place] [address] [phone] Discharge Disposition: Home Social History Tobacco Use [...] Date/Time Associated Diagnosis Comments MAMMO SCREENING CAD BILATERAL Routine 09/26/2011 12:46 PM EDT documented in this encounter Results * MAMMO DIGITAL BILATERAL SCREENING WITH CAD (09/26/2011 12:46 PM EDT) Anatomical Region Laterality Modality Breast Bilateral Mammography 09/26/2011 12:4 6 PM EDT Narrative 09/30/2011 11:17 AM EDT BILATERAL MAMMOGRAPHY ?? REASON FOR EXAM: Screening ?? TECHNIQUE: Cranio-caudal (CC) and mediolateral oblique (MLO) views of both breasts obtained with direct digital capture. The exam was evaluated by CAD Version 8.3.17. In addition to the routine 2D imaging this exam was also performed with 3D tomographic imaging in MLO and CC projections. ?? FINDINGS: This is a negative mammogram (ACR Category 1). There is a stable fibroglandular pattern without significant change as compared to prior studies. There is no mammographic evidence of cancer. ? The breasts are of scattered density. ? CONCLUSION ?? This is a NEGATIVE mammogram (ACR Category 1). Routine screening mammography is recommended with the frequency dependent on the patient's age and breast cancer risk factors. ?? A letter has been sent to this patient [facility]. Procedure Note Maria L Cheatham MD - 09/30/2011 BILATERAL MAMMOGRAPHY REASON FOR EXAM: Screening TECHNIQUE: Cranio-caudal (CC) and mediolateral oblique (MLO) views of both breasts obtained with direct digital capture. The exam was evaluated byCAD Version 8.3.17. In addition to the routine 2D imaging this exam was also performed with 3D tomographic imaging in MLO and CC projections. FINDINGS: This is a negative mammogram (ACR Category 1). There is a stable fibroglandular pattern without significant change as compared to priorstudies. There is no mammographic evidence of cancer. The breasts are of scattered density. CONCLUSION This is a NEGATIVE mammogram (ACR Category 1). Routine screeningmammography is recommended with the frequency dependent on the patient's age and breastcancer risk factors. A letter has been sent to this patient by the [facility]. Jennifer Smith MD IMG MAMMO ORDERABLES documented in this encounter Visit Diagnoses Not on filedocumented in this encounter Care Teams Digital Learning Platforms Manager Relationship Specialty Start Date End Date Jennifer Smith MD [address] [facility] [address] [place] [address] PCP - General 05/28/10 documented as of this encounter
[2024-02-12 11:03] LABS: Lyme Ab w Rflx to Lyme Confirm Negative (Negative)
[2024-02-14 16:38] LABS: Anaplasma phagocytophilum Negative (Negative); B. miyamotoi PCR Negative (Negative); Babesia divergens/MO-1 Negative (Negative); Babesia duncani Negative (Negative); Babesia microti Negative (Negative); Ehrlichia chaffeensis Negative (Negative); Ehrlichia ewingii/canis Negative (Negative); Ehrlichia muris eauclairensis Negative (Negative)
== END 2024-02-10 17:38 | disposition home or self-care (01) ==
LOC: LBO 17:37
PROVIDERS: PCP Family Medicine; Visit Provider Family Medicine
DX: W57.XXXA Bitten or stung by nonvenomous insect and other nonvenomous arthropods, initial encounter (principal); S30.861A Insect bite (nonvenomous) of abdominal wall, initial encounter
CPT/HCPCS: 36415; 87798; 86618

== ENCOUNTER 2024-04-26 01:06 | Outpatient (CLI) | payer MEDICARE, SELFPAY ==
--- NOTE | 2024-04-26 06:30 | DI.RAD_ITS ---
Exam(s) XR FOOT LT COMPLETE EXAM: XR FOOT LT COMPLETE CLINICAL HISTORY: Left foot pain,M79.672. TECHNIQUE: 2D digital imaging was performed. COMPARISON: CR LEFT FOOT COMPLETE from 04/03/2015 FINDINGS: 3 views No evidence of fracture or diastasis of the Lisfranc joint. Great toe metatarsophalangeal joint appe ars unremarkable. Other metatarsals appear unremarkable. Moderate size inferior calcaneal spur is a gain noted as is an enthesophyte on the posterior calcaneus insertion site of the Achilles tendon. T here is no pes planus. No osseous tarsal coalition. Bone density normal. No osseous lesions. IMPRESSION: No acute osseous findings in the left foot nor significant change compared to left foot images of Mar. DATA REPOSITORY: RADIATION DOSE DELIVERED:
== END 2024-04-26 01:26 ==
PROVIDERS: PCP Family Medicine; Visit Provider Podiatrist
DX: M79.672 Pain in left foot (principal)
CPT/HCPCS: 17110; 73630

== ENCOUNTER 2024-05-19 01:02 | Outpatient (CLI) | payer MEDICARE, SELFPAY ==
--- NOTE | 2024-05-19 09:58 | DI.MAMMO_ITS ---
Exam(s) MG MAMMO DIAGNOSTIC UNI EXAM: MG MAMMO DIAGNOSTIC UNI CLINICAL HISTORY: 3-6 mo fu/abnormal mammo,r92.8,z09,rt breast abnormality TECHNIQUE: Right cc and MLO mammogram images were performed according to the usual protocol includ ing computer analysis with CAD system, tomosynthesis and C-view imaging. COMPARISON: 2015 through November 2023 FINDINGS: The breast is composed of scattered fibroglandular densities, Breast Density category B. No suspicious masses or suspicious microcalcifications are seen. The previously questioned area ar chitectural distortion in the upper right breast is not present on the current exam. No skin thickening or abnormal axillary lymph nodes are seen. IMPRESSION: BI-RADS Category 1, Negative mammogram Yearly screening mammography is recommended. Breast Density - Category B, scattered fibroglandular densities. A negative radiographic report should not delay biopsy if a dominant or clinically suspicious mass is present. Up to ten percent of cancers are not identified on mammography. A negative report may reinforce clinical impression. Adenosis and dense breasts may obscure an underlying neoplasm. False positive reports average 6 to 10%. Patient will receive a letter notifying them of these results.
== END 2024-05-19 01:22 ==
PROVIDERS: PCP Family Medicine; Visit Provider Family Medicine
DX: Z12.31 Encounter for screening mammogram for malignant neoplasm of breast (principal); Z09 Encounter for follow-up examination after completed treatment for conditions other than malignant neoplasm
CPT/HCPCS: 77061; 77065; G0279

== ENCOUNTER 2024-09-11 16:44 | Emergency (ER) | payer MEDICARE, SELFPAY ==
[2024-09-11 16:54] VITALS: BP 145/71; PULSE 63; RESP 16; TEMP 37; O2SAT 98
--- NOTE | 2024-09-11 17:00 | ED.GENADUL_ITS ---
Discharge Plan Disposition Patient Disposition: Home Condition: Stable Discharge Details Clinical Impression: Scalp abrasion, Jaw pain Primary Care Provider: Jennifer Smith ED Provider: Desean Aguilar Home Meds and New Rx's Prescriptions: No Action clobetasol [Temovate] 0.05 % ointment 1 applic topical BID Qty: 60 1RF ergocalciferol (vitamin D2) 1,250 mcg (50,000 unit) capsule 50,000 unit PO QWEEK Qty: 13 4RF Discharge Instructions Instructions: TMJ Exercises, Abrasions ED Additional Instructions: You were seen in the emergency department for your fall while on a walk earlier today, you have a very minor scalp abrasion requiring no sutures or glue or amy. Please gently clean the wound with a gentle shampoo like FusionOne baby shampoo, your tetanus is up-to-date. You have no other significant signs of trauma, he had some left-sided jaw pain but there is no abnormality seen on the CT of your facial bones, this could just be TMJ syndrome, please take 650 mg of Tylenol every 6 hours, intermediate between Tylenol dosings please take 400 mg of ibuprofen also every 6 hours, apply ice to areas of pain, please return immediately for any neurologic negative changes like nausea, vomiting, repetitive questioning, coordination difficulties but you have a very low likelihood of progressing to significant concussion and even lower likelihood of any intracranial bleeding, your CT was completely negative today. Referrals: Jennifer Smith MD, [place] [Primary Care Provider] - Discharge Data Discharge Date/Time-TO BE ENTERED AT DEPARTURE: 09/11/24 19:08 HPI General Date/Time Provider Initiated Documentation: 09/11/24 16:52 . HPI Narrative: 69 year-old female presents to ED today by POV/ambulating with her with a chief complaint of fall, with occipital headstrike with onset about 45 minutes prior to arrival. Quality described as occipital pain, minor abrasion, no radiation to nausea/vomiting, amnesia, coordination or speech difficulty, repetitive questioning, neck pain, endorses L sided jaw pain with certain jaw movements without trismus. Severity is described as moderate for headache. Palliating factors include nothing specific. Provoking factors include nothing specific. Events leading up to the incident/Associated Symptoms: Tdap UTD 2021. Patient not anticoagulated. Related Data Home Medications ?Medication ?Instructions ?Recorded ?Confirmed clobetasol 0.05 % topical ointment 1 applic topical BID #60 grams 07/03/22 09/11/24 (Temovate) ergocalciferol (vitamin D2) 1,250 50,000 unit PO QWEEK #13 caps 06/12/23 09/11/24 mcg (50,000 unit) capsule Previous Rx's ?Medication ?Instructions ?Recorded clobetasol 0.05 % topical ointment 1 applic topical BID #60 grams 07/03/22 (Temovate) ergocalciferol (vitamin D2) 1,250 50,000 unit PO QWEEK #13 caps 06/12/23 mcg (50,000 unit) capsule Allergies Allergy/AdvReac Type Severity Reaction Status Date / Time sulfamethoxazole (From Allergy Hives Unverified 09/11/24 16:57 Bactrim) trimethoprim (From Bactrim) Allergy Hives Unverified 09/11/24 16:57 General Stated Complaint: HeadInjury ROJAS: 4 Review of Systems All systems reviewed & are unremarkable except as noted in HPI and below Exam Narrative Exam Narrative: GENERAL APPEARANCE: Well-nourished, non-toxic, awake and alert, atraumatic, no acute distress. SKIN: Warm, pink, dry, intact, without rashes/lesions/ulcerations. HEAD: Normocephalic, atraumatic-very small less than 0.2 cm scalp abrasion in the occiput without scalp hematoma, no Young sign, no periorbital ecchymosis, normal hair distribution for gender/age. EYES: Normal conjunctiva, no exudates on lids/lashes. ENT: Nares patent, no circumoral cyanosis, no facial swelling NECK: Supple, trachea midline, painless cervical ROM, no midline vertebral crepitus tenderness or step-offs. LUNGS/CHEST: Non-labored respirations, normal A/P diameter, symmetrical expansion, no chest wall deformity HEART (CV/PV): No peripheral edema, no JVD. ABDOMEN: Soft, non-distended, no guarding. MSK: Normal ROM, no swelling/deformity to bilateral UEs or LEs, moving all extremities without weakness, no cyanosis, spine midline without tenderness, normal curvature. NEURO: Mental Status AAOx4 - alert to person, place, time, events No facial droop, no forehead involvement. Motor: No focal weakness - strength 5/5 in bilateral UEs and LEs, proximal and distal, symmetric. Sensory: sensation intact to light touch globally. Gait normal: patient ambulated without ataxia into ED room. PSYCH: euthymic, cooperative, pleasant, appropriate speech Course Vital Signs Vital signs: Vital Signs Temperature 37.0 C 09/11/24 16:54 Pulse 63 09/11/24 16:54 Respiratory Rate 16 09/11/24 16:54 Blood Pressure 145/71 H 09/11/24 16:54 Pulse Oximetry 98 09/11/24 16:54 Temperature 37.0 C 09/11/24 16:54 Pulse 63 09/11/24 16:54 Respiratory Rate 16 09/11/24 16:54 Blood Pressure 145/71 H 09/11/24 16:54 Pulse Oximetry 98 09/11/24 16:54 Pain Level 2 09/11/24 16:54 Medical Decision Making This dictation utilizes [id number] dictation software and may contain unedited grammatical errors. 69 year-old female presents to ED today by POV/ambulating with her with a chief complaint of fall, with occipital headstrike with onset about 45 minutes prior to arrival while walking her dog. Quality described as occipital pain, minor abrasion, no radiation to nausea/vomiting, amnesia, coordination or speech difficulty, repetitive questioning, neck pain, endorses L sided jaw pain with certain jaw movements without trismus. Severity is described as moderate for headache. Palliating factors include nothing specific. Provoking factors include nothing specific. Events leading up to the incident/Associated Symptoms: Tdap UTD 2021. Patients' medical history: Noncontributory. Family and social history: Noncontributory. Pertinent exam findings / vital signs include very minor scalp abrasion to posterior scalp requiring no intervention, no crepitus to the TMJ joints bilaterally, no trismus, managing secretions well, no Young sign, nose scalp hematoma, no periorbital ecchymosis. Differential / pathologies of concern include scalp abrasion, TMJ syndrome, unlikely ICH. Diagnostic studies of: -CT facial bones without, CT head without-no acute fractures or intracranial pathology. Interventions of: -Recommend Tylenol and ibuprofen. ED Course/Assessment/Plan: 69-year-old female presents with a minor fall while walking her dogs, has a minor scalp abrasion that does not need any intervention to the occiput, no evidence of projectile vomiting or altered mentation since falling, patient states she would like head CT, [place] head CT criteria states consider head CT he had a low suspicion for intracranial fracture, there is no pathology seen at the TMJ joint on CT, recommend therapeutic dosing of Tylenol and ibuprofen with strict return criteria for any neurologic changes. Findings not consistent with significant concussion, intracranial hemorrhage, mandible or facial fracture. Disposition of Scalp Abrasion, Jaw Pain. Patient verbalized understanding of the plan and return to ED criteria and engaged in shared decision making. Medical Records Medical records reviewed: Yes I reviewed the patient's medical records. Imaging Data Radiologic Study: Attestation: I personally reviewed and interpreted this imaging study as follows: Imaging: CT Scan Radiologist's impression: Exam: CT Head Without Contrast Exam date and time: 09/11/2024 5:48 PM Age: 69 years old Clinical indication: Injury or trauma; Blunt trauma (contusions or hematomas); Not specified; Occiputal headstrike, jaw pain after fall TECHNIQUE: Imaging protocol: Computed tomography of the head without contrast. COMPARISON: CT HEAD WO 05/15/2023 10:48 PM FINDINGS: Brain: No acute intracranial hemorrhage, mass-effect, midline shift, or extra-axial collection is seen. The barajas white matter differentiation appears preserved. Cerebral ventricles: The ventricular system and basilar cisterns appear appropriate in size and configuration. Paranasal sinuses: CT imaging through the facial bones was obtained concurrently and has been dictated separately. Mastoid air cells: The mastoid air cells appear well-aerated. Auditory system: The middle ear cavities appear clear. Bones: The bony calvarium appears intact. No depressed skull fracture is seen. Soft tissues: There is a small posterior midline scalp contusion with an associated laceration. IMPRESSION: No acute intracranial hemorrhage or depressed skull fracture. PROCEDURE INFORMATION: Exam: CT Maxillofacial Without Contrast Exam date and time: 09/11/2024 5:48 PM Age: 69 years old Clinical indication: Injury or trauma; Blunt trauma (contusions or hematomas); Not specified; Occiputal headstrike, jaw pain after fall TECHNIQUE: Imaging protocol: Computed tomography of the face without contrast. COMPARISON: CT HEAD WO 05/15/2023 10:48 PM FINDINGS: Paranasal sinuses: The paranasal sinuses appear well aerated. No air-fluid levels are seen. Orbital cavities: The globes and intraorbital structures appear grossly intact. Bones: No acute facial fracture is seen. Soft tissues: No gross asymmetric soft tissue swelling is seen in the face. IMPRESSION: No acute facial fracture is seen. Dictated and Authenticated by: Jamari Jeffery MD. Quality:SDOH Health Related Social Needs: No Data to Display [facility] All Active Problems (Updated 09/11/24 @ 18:55 by SAMANTA Giron) Jaw pain (Acute) Scalp abrasion (Acute) Pain, joint, foot, right (Acute) Corns and callosities (Acute) Metatarsalgia of both feet (Acute) Achilles tendon contracture, bilateral (Acute) Tick bite of abdomen (Acute) Ectasia of artery (Acute) Mass of soft tissue of abdomen (Acute) Abdominal pulsatile mass (Acute) Left foot pain (Acute) Knee pain, right (Acute) Hyperlipidemia (Acute) Lung nodule seen on imaging study (Acute) Vitamin D deficiency (Chronic 06/12/15) Annual physical exam (Acute) Spasm of muscle of lower back (Acute) Vegan diet (Acute) Fatigue (Acute) B12 deficiency (Acute) Encounter for screening for other viral diseases (Acute) Breast pain (Acute) Skin lesions (Acute) Elevated vitamin B12 level (Acute) Tick bite (Acute) Foot pain, right (Acute) Need for post exposure prophylaxis for rabies (Acute) Facial lesion (Acute) Skin lesion of back (Acute) Medical History Vulvar pruritus occassional. No visible lesions. Neg vag path screen. Uses Clobetasol PRN. Stress fracture, left foot, subsequent encounter for fracture with routine healing (05/16/15) Distal radius fracture (03/01/14) right Plantar fasciitis of left foot (08/08/15) Peroneal tendonitis of left lower leg (08/08/15) Menopausal state (02/18/12) Gallbladder disorder 2001 U/S: PHRYGIAN CAP, NO STONES; 08/10 U/S: NEG Stress fracture, left foot, subsequent encounter for fracture with routine healing Radius distal fracture Plantar fasciitis of left foot Surgical History History of section History of spinal surgery skin biopsy (04/30/10) punch bx of skin of chest back surgery (~2009) STRESS FX 2 METATARSALS OF LEFT FOOT + DX VIA MRI @ [facility] 05/16/15; BOOTS X 6 WEEKS; DR. IRAHETA section 1987 and 1997 Fracture, Open Treatment 08/09/14 RIGHT DISTAL RADIUS; HARDWARE REMOVED DUE TO COMPLICATIONS FRACTURE REPAIR 03/03/14 REPAIR OF FX WITH HARDWARE TO R DISTAL RADIUS Colonoscopy - MAC (09/04/17) 2005 Family History Mother , 88 No problems noted. Father , 70 Dementia Maternal Grandfather , MVA at age 40. No problems noted. Paternal Grandfather , 60+ Myocardial infarction Maternal Grandmother , MVA at age 40. No problems noted. Paternal Grandmother , 80 No problems noted. Son No problems noted. Daughter No problems noted. 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 Pets and animals: Yes Pets and animals: dog(s) Sexually active: No Do you think of yourself as: straight/heterosexual Current gender identity: female What is your relationship status?: How often do you talk on the phone with friends or family?: three or more times per week How often do you get together with friends or relatives?: once per week Do you belong to any clubs or organized social groups?: yes Panel score (0-1 are the most socially isolated patients): 3 What type of physical activity do you participate in: walking Duration: 45-60 minutes/day Frequency: 3-4 times per week Annabelle/Mu-Ism: None Special annabelle needs: No Agree to transfusion: Yes Seatbelt use: always Helmet use: Yes Helmet use: always Drive intox or ride w/intox local 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
--- NOTE | 2024-09-11 17:38 | DI.CT_ITS ---
Exam(s) CT HEAD FACIAL WO EXAM: CT HEAD FACIAL WO CLINICAL HISTORY: occiputal headstrike, jaw pain after fall. TECHNIQUE: Imaging Protocol: Axial computed tomography images with coronal and sagittal reformatted images were created and reviewed COMPARISON: CT CT HEAD WO from 05/15/2023 FINDINGS: CT Head: Ventricles and Extra axial spaces: Normal in size and morphology for the patient's age. Hemorrhage: None. Cerebral parenchyma: There is no evidence of an acute territorial infarct. There is a normal barajas-wh ite matter differentiation. Midline shift: None. Brainstem/Cerebellum: Normal. Calvarium: Normal. Visualized Paranasal sinuses/Mastoids: Clear. Soft Tissues: There is a small amount of subcutaneous gas in the posterior soft tissues with associat ed soft tissue swelling. No radiopaque foreign bodies are seen. CT Face: There is some artifact from the patient's dental work. Facial Bones: No definite fracture is noted in facial bones. Sinuses and Mastoids: Unremarkable. Globes, extraocular muscles, optic nerves and retrobulbar fat: Normal. Upper aerodigestive tract: Normal. Mandible and bilateral temporomandibular joints: Normal. Soft tissues: Normal. Visualized cervical spine: Age-appropriate degenerative changes are present. IMPRESSION: 1. No acute intracranial process. 2. No acute facial fracture. RADIATION DOSE DELIVERED: 1,519.29mGy.cm Total DLP DATA REPOSITORY: All CT scans at this facility are submitted to the National Radiology Data Registry (NRDR) Dose Index Registry (DIR) with the [employer] (ACR). RADIATION OPTIMIZATION: All CT scans at this facility use at least one of these dose optimization te chniques: automated exposure control; mA and/or kV adjustment per patient size (includes targeted exa ms where dose is matched to clinical indication); or iterative reconstruction.
--- NOTE | 2024-09-11 18:15 | NUR.NOTE ---
patient presented to the ER falling outside at home sustained injury to he back of her head. patient has a metal clip in her hair and reported that she had a beret on as well. Denies any LOC but state that the left side of her jaw hurts and she is not able to put her teeth together. Patient was given an ice packed prior to CT of head and jaw. Area was cleaned with soap and water, small abrasion noted to the back of the head, aware
--- NOTE | 2024-09-11 18:44 | DI.VRAD_ITS ---
PROCEDURE INFORMATION: Exam: CT Head Without Contrast Exam date and time: 09/11/2024 5:48 PM Age: 69 years old Clinical indication: Injury or trauma; Blunt trauma (contusions or hematomas); Not specified; Occiputal headstrike, jaw pain after fall TECHNIQUE: Imaging protocol: Computed tomography of the head without contrast. COMPARISON: CT HEAD WO 05/15/2023 10:48 PM FINDINGS: Brain: No acute intracranial hemorrhage, mass-effect, midline shift, or extra-axial collection is seen. The barajas white matter differentiation appears preserved. Cerebral ventricles: The ventricular system and basilar cisterns appear appropriate in size and configuration. Paranasal sinuses: CT imaging through the facial bones was obtained concurrently and has been dictated separately. Mastoid air cells: The mastoid air cells appear well-aerated. Auditory system: The middle ear cavities appear clear. Bones: The bony calvarium appears intact. No depressed skull fracture is seen. Soft tissues: There is a small posterior midline scalp contusion with an associated laceration. IMPRESSION: No acute intracranial hemorrhage or depressed skull fracture. PROCEDURE INFORMATION: Exam: CT Maxillofacial Without Contrast Exam date and time: 09/11/2024 5:48 PM Age: 69 years old Clinical indication: Injury or trauma; Blunt trauma (contusions or hematomas); Not specified; Occiputal headstrike, jaw pain after fall TECHNIQUE: Imaging protocol: Computed tomography of the face without contrast. COMPARISON: CT HEAD WO 05/15/2023 10:48 PM FINDINGS: Paranasal sinuses: The paranasal sinuses appear well aerated. No air-fluid levels are seen. Orbital cavities: The globes and intraorbital structures appear grossly intact. Bones: No acute facial fracture is seen. Soft tissues: No gross asymmetric soft tissue swelling is seen in the face. IMPRESSION: No acute facial fracture is seen. Dictated and Authenticated by: Jamari Jeffery MD. Orderin Jeff Anton MD
[2024-09-11 19:08] VITALS: BP 154/71; PULSE 54; RESP 16; TEMP 36.8; O2SAT 100
== END 2024-09-11 19:08 | disposition home or self-care (01) ==
PROVIDERS: Emergency Provider Physician Assistant; PCP Family Medicine
DX: S00.01XA Abrasion of scalp, initial encounter (principal); R68.84 Jaw pain; W19.XXXA Unspecified fall, initial encounter
CPT/HCPCS: 99284; 70450; 70486; 99283

== ENCOUNTER 2024-09-21 03:57 | Outpatient (CLI) | payer MEDICARE, SELFPAY ==
[2024-09-21 09:27] LABS: Calculated LDL 106 mg/dL (<100); Cholesterol 200 mg/dL (<200); HDL Cholesterol 65 mg/dL (>or=50); Triglyceride 148 mg/dL (<150); Vitamin B12 252 pg/mL (193-986); Vitamin D 25 Total 19 ng/mL (30-100)
[2024-09-21 18:27] LABS: Hepatitis C Ab w Rflx HCV PCR Negative (Negative)
== END 2024-09-21 03:58 | disposition home or self-care (01) ==
PROVIDERS: PCP Family Medicine; Visit Provider Family Medicine
DX: I10 Essential (primary) hypertension (principal); E53.8 Deficiency of other specified B group vitamins; Z11.59 Encounter for screening for other viral diseases; E55.9 Vitamin D deficiency, unspecified
CPT/HCPCS: 36415; 80061; 82306; 86803; 82607

== ENCOUNTER 2025-01-27 00:58 | Outpatient (CLI) | payer MEDICARE, SELFPAY ==
[2025-01-27 12:54] LABS: TSH (W/Ref FT4) 1.95 uIU/mL (0.36-3.74)
== END 2025-01-27 00:59 | disposition home or self-care (01) ==
LOC: LBO 00:59
PROVIDERS: PCP Family Medicine; Visit Provider Family Medicine
DX: E03.9 Hypothyroidism, unspecified (principal)
CPT/HCPCS: 36415; 84443